=== PATIENT | female | born 1980 | race Caucasian/White ===

== ENCOUNTER 2024-11-15 10:48 | Emergency (ER) | payer BC, SELFPAY ==
--- NOTE | ~2024-11-15 | CT_ITS ---
EXAMINATION: CT knee LT wo con DATE: 11/15/2024 13:13 INDICATION: Left knee pain TECHNIQUE: Computed tomography (CT) of the left knee was performed without intravenous contrast. The dose-length product was 462.58 mGy-cm. COMPARISON: Left knee series dated 11/15/2024 FINDINGS: There is subtle cortical discontinuity along the posterior lateral tibial plateau with sclerotic margins. There is cortical discontinuity posteriorly surrounding the tibial spines, consistent with age-indeterminate fracture. No definite joint effusion. There is mild osteoarthritis of the knee. Fibula and distal femur appear to be intact. IMPRESSION: 1. Cortical discontinuity of the central and posterior lateral aspects of the tibial plateau consistent with age-indeterminate fractures. Recommend correlation with MRI to assess fracture alignment and bone marrow edema. Reviewed, dictated and finalized at location O. IMPRESSION: 1. Cortical discontinuity of the central and posterior lateral aspects of the t ibial plateau consistent with age-indeterminate fractures. Recommend correlatio n with MRI to assess fracture alignment and bone marrow edema.
--- NOTE | ~2024-11-15 | CT_ITS ---
EXAMINATION: CT hip LT wo con DATE: 11/15/2024 13:13 INDICATION: Left hip pain TECHNIQUE: Computed tomography (CT) of the left hip was performed without intravenous contrast. The dose-length product was 462.58 mGy-cm. COMPARISON: Left hip series dated 11/15/2024 FINDINGS: There is thinning of the medial wall of the acetabulum with mild acetabular protrusio. There is lucency surrounding the acetabular component of left total hip arthroplasty, consistent with loosening. No acute fracture identified. IMPRESSION: 1. Abnormal lucency surrounding the acetabular component of left total hip arthroplasty, consistent with loosening. Mild acetabula protrusio. No acute fracture identified. Reviewed, dictated and finalized at location O. IMPRESSION: 1. Abnormal lucency surrounding the acetabular component of left total hip arth roplasty, consistent with loosening. Mild acetabula protrusio. No acute fractur e identified.
--- NOTE | ~2024-11-15 | XR_ITS ---
XR knee LT 3V 11/15/2024 12:33 INDICATION: Left knee pain PROCEDURE: 4 views left knee COMPARISON: No prior studies for comparison. FINDINGS: There is a nondisplaced lateral tibial plateau fracture.. No significant joint effusion. Osteopenia. The soft tissues appear within normal limits. No foreign bodies are identified. IMPRESSION: 1: Nondisplaced lateral tibial plateau fracture. Consider correlation with CT. Reviewed, dictated and finalized at location O.
--- NOTE | ~2024-11-15 | XR_ITS ---
XR hip LT 2V w AP pelvis 11/15/2024 12:34 Indication: Left hip pain. Procedure: AP pelvis and 2 views left hip Comparison: 03/10/2010 Findings: There is a left total hip arthroplasty. There has been development of acetabular protrusio with lucency surrounding the acetabular component, suspicious for loosening. There is mild osteoarthritis of the right hip. Impression: 1: Interval development of acetabular protrusio with interval development of lucency surrounding the acetabular component, suspicious for loosening. Reviewed, dictated and finalized at location O. Impression: 1: Interval development of acetabular protrusio with interval development of alice cency surrounding the acetabular component, suspicious for loosening.
--- OUTSIDE RECORDS SUMMARY | 2024-11-15 10:51 | XMS_ITS | Encounter Summary ---
Author Organization [email or web address] Address [address] [place] [address] Care Team Providers Care Reel Hooker Name Role Phone Unavailable Primary Care Provider Unavailabl e Encounter Details Date Type Department Care Team (Late st Contact Info) Description 05/22/2007 Outpatient Historical [facility] Juni Elloitt MD NO ADDRESS ON FILE Social History Tobacco Use Types Packs/Day Years Used Date Smoking Tobacco: Never Assessed Comments Unknown Sex and Gender Information Value Date Recorded Sex Assigned at Not on file Legal Sex Female 5:30 AM P[address]ING [address] CHAUFFEUR Gender Identity Not on file Sexual Orientation Not on file documented as of this encounter Plan of Treatment Not on file documented as of this encounter Visit Diagnoses Not on filedocumented in this encounter
--- OUTSIDE RECORDS SUMMARY | 2024-11-15 10:51 | XMS_ITS | Clinical Summary ---
Author Organization [employer] Address [address] [facility] Attn: Epic Prelude ADT JARROD PARIKH ELISA [id number] Care Team Providers Care Green Prize Packer Name Role Phone Unavailable Primary Care Provider Unavailabl e Social History Tobacco Use Types Packs/Day Years Used Date Smoking Tobacco: Never Assessed Comments Unknown Sex and Gender Information Value Date Recorded Sex Assigned at Not on file Legal Sex Female 5:30 AM SVP [employer]ETING [employer] COMM[employer] Gender Identity Not on file Sexual Orientation Not on file Plan of Treatment Health Maintenance Due Date Last Done Comments DTAP/TDAP/TD VACCINES (1 - Tdap) 2000 HEPATITIS B VACCINES (1 of 3 - 19+ 3-dose series) 03/25 HPV/Cotest (21-29) 2002 HPV VACCINES (1 - 3-dose SCDM series) 2008 CERVICAL CANCER SCREENING 2011 HPV/Cotest (30-65) 2011 PAP SMEAR 2011 BREAST CANCER SCREENING 2021 INFLUENZA VACCINE (#1) 2024
--- OUTSIDE RECORDS SUMMARY | 2024-11-15 10:51 | XMS_ITS | Encounter Summary ---
Author Organization [employer] Address [address] [place] [address] Care Team Providers Care Funeral Sales Manager Name Role Phone Unavailable Primary Care Provider Unavailabl e Encounter Details Date Type Department Care Team (Late st Contact Info) Description 04/10/2007 Outpatient Historical [facility]TH[facility] Juni Elliott MD NO ADDRESS ON FILE Social History Tobacco Use Types Packs/Day Years Used Date Smoking Tobacco: Never Assessed Comments Unknown Sex and Gender Information Value Date Recorded Sex Assigned at Not on file Legal Sex Female 5:30 AM ACCOUNTS RECEIVABLE ACCOUNTANT Gender Identity Not on file Sexual Orientation Not on file documented as of this encounter Plan of Treatment Not on file documented as of this encounter Visit Diagnoses Not on filedocumented in this encounter
--- OUTSIDE RECORDS SUMMARY | 2024-11-15 10:51 | XMS_ITS | Encounter Summary ---
Author Organization [employer] Address [address] [place] [address] Care Team Providers Care Roll Contour Grinder Name Role Phone Unavailable Primary Care Provider Unavailabl e Encounter Details Date Type Department Care Team (Late st Contact Info) Description 06/09/2007 Outpatient Historical [facility]THOPED[facility] TRAUMA Juni Elliott MD NO ADDRESS ON FILE Social History Tobacco Use Types Packs/Day Years Used Date Smoking Tobacco: Never Assessed Comments Unknown Sex and Gender Information Value Date Recorded Sex Assigned at Not on file Legal Sex Female 5:30 AM BUSINESS RELATIONSHIP MANAGER Gender Identity Not on file Sexual Orientation Not on file documented as of this encounter Plan of Treatment Not on file documented as of this encounter Visit Diagnoses Not on filedocumented in this encounter
--- OUTSIDE RECORDS SUMMARY | 2024-11-15 10:51 | XMS_ITS | Clinical Summary ---
Author Organization [facility] Address [address] [place] [address] Care Team Providers Care Staple Cutter Name Role Phone No, Physician Primary Care Provider [phone] Allergies Active Allergy Reactions Criticality Noted Date Comments Cephalexin Hives Medium 02/23/2023 Medications oxyCODONE (ROXICODONE) 5 mg immediate release tabletIndication s:Pain Take 1 tablet (5 mg total) by mouth every 4 (four) hours as needed for pain for up to 15 doses 15 tablet 02/23/2023 Active lidocaine (ASPERCREME) 4 % adhesive patch,medicated Place 1 patch on the skin 2 (two) times a day 30 patch 02/23/2023 Active Social History Tobacco Use Types Packs/Day Years Used Date Smoking Tobacco: Never Assessed Personal Safety Answer Date Recorded Have you ever been in or are you currently in a harmful physical or emotional relationship or is someone making you feel afraid or unsafe? Denies 03/20/2023 Comments Unknown Sex and Gender Information Value Date Recorded Sex Assigned at Not on file Legal Sex Female 3:22 PM INVENTORY ASSOCIATE Gender Identity Not on file Sexual Orientation Not on file Obstetrics History Last Filed Vital Signs Vital Sign Reading Time Taken Comments Blood Pressure 141/90 03/20/2023 2:30 PM INVENTORY ASSOCIATE Pulse 90 03/20/2023 2:30 PM INVENTORY ASSOCIATE Temperature 36.8 C (98.3 F) 03/20/2023 12:26 PM INVENTORY ASSOCIATE Respiratory Rate 18 03/20/2023 2:30 PM INVENTORY ASSOCIATE Oxygen Saturation 99% 03/20/2023 2:30 PM INVENTORY ASSOCIATE Inhaled Oxygen Concentration - - Weight 74.8 kg (165 lb) 03/20/2023 12:26 PM INVENTORY ASSOCIATE Height 147.3 cm (4' 10) 02/23/2023 4:21 PM INVENTORY ASSOCIATE Body Mass Index 34.49 02/23/2023 4:21 PM INVENTORY ASSOCIATE Plan of Treatment Health Maintenance Due Date Last Done Comments Breast Cancer Screening-Mammogram 1981 Cervical Cancer Screening 1981 Depression Screening 1981 Hepatitis C Screening 1981 DTaP/Tdap/Td Vaccine (1 - Tdap) 1992 Varicella Vaccines (1 of 2 - 13+ 2-dose series) 1994 Hepatitis B Screening 1999 Regular Well Visit/Exam 18-64 1999 HPV Vaccines (1 - 3-dose SCD M series) 2008 Influenza Vaccine (#1) 2024 Pneumococcal vaccine <65 Aged Out No longer eligible based on patient's age to complete this topic Insurance Care Teams Staple Cutter Relationship Specialty Start Date End Date No, Physician PCP - General 02/22/23
--- OUTSIDE RECORDS SUMMARY | 2024-11-15 10:51 | XMS_ITS | Encounter Summary ---
Author Organization [employer] Address [address] [place] [address] Care Team Providers Care Carpentry Supervisor Name Role Phone Unavailable Primary Care Provider Unavailabl e Encounter Details Date Type Department Care Team (Late st Contact Info) Description 05/26/2007 Outpatient Historical [facility]THOP[facility] TRAUMA Juni Elliott MD NO ADDRESS ON FILE Social History Tobacco Use Types Packs/Day Years Used Date Smoking Tobacco: Never Assessed Comments Unknown Sex and Gender Information Value Date Recorded Sex Assigned at Not on file Legal Sex Female 5:30 AM RN PACU Gender Identity Not on file Sexual Orientation Not on file documented as of this encounter Plan of Treatment Not on file documented as of this encounter Visit Diagnoses Not on filedocumented in this encounter
--- OUTSIDE RECORDS SUMMARY | 2024-11-15 10:51 | XMS_ITS | Clinical Summary ---
Author Organization [facility] Address [address] [place] [address] Phone Care Team Providers Care Asphalt Tamper Name Role Phone Provider, None Primary Care Provider Unavailabl e Allergies No known active allergies Medications traZODone 100 MG PO TABS Take 100 mg by mouth nightly. Active predniSONE 50 MG PO TABS Take 1 Tab by mouth daily. Use as directed. 5 Tab 0 06/14/2012 Active Active Problems No known active problems Social History Tobacco Use Types Packs/Day Years Used Date Smoking Tobacco: Every Day Cigarettes 0.5 10 Smokeless Tobacco: Never Alcohol Use Standard Drinks/Week Comments No 0 (1 standard drink = 0.6 oz pur e alcohol) Comments No Sex and Gender Information Value Date Recorded Sex Assigned at Not on file Legal Sex Female 2:39 PM CDT Gender Identity Not on file Sexual Orientation Not on file Last Filed Vital Signs Vital Sign Reading Time Taken Comments Blood Pressure 129/84 06/14/2012 1:24 AM CDT Pulse 102 06/14/2012 1:24 AM CDT Temperature 36.3 C (97.4 F) 06/14/2012 1:24 AM CDT Respiratory Rate 22 06/14/2012 1:24 AM CDT Oxygen Saturation 97% 06/14/2012 1:24 AM CDT Inhaled Oxygen Concentration - - Weight 74.8 kg (165 lb) 06/14/2012 1:24 AM CDT Height 147.3 cm (4' 10) 06/14/2012 1:24 AM CDT Body Mass Index 34.49 06/14/2012 1:24 AM CDT Plan of Treatment Health Maintenance Due Date Last Done Comments Hepatitis C Virus (HCV) Screening 1981 TdaP Immunization 1981 Hepatitis B Immunization (1 of 3 - 19+ 3-dose series) 2000 Pap Smear 2002 Human Papillomavirus (HPV) Immunization (1 - 3-dose SCDM series) 2008 Cervical Cancer Screening (CCS) 2011 HPV/Cotest 2011 SARS-COV-2 Immunization ( season) 2023 Influenza Immunization (#1) 2024 Respiratory Syncytial Virus (RSV) Immunization (Adult) (1 - 1-dose 75+ series) 2056 Meningococcal Immunization (ACWY) Aged Out No longer eligible based on patient's age to complete this topic Pneumococcal Immunization Combined Aged Out No longer eligible based on patient's age to complete this topic Rotavirus Immunization Aged Out No lo nger eligible based on patient's age to complete this topic Care Teams Asphalt Tamper Relationship Specialty Start Date End Date Provider, None [place] PCP - General 06/08/12
--- OUTSIDE RECORDS SUMMARY | 2024-11-15 10:51 | XMS_ITS | Encounter Summary ---
Author Organization [employer] Address [address] [place] [address] Care Team Providers Care Land Management Forester Name Role Phone Unavailable Primary Care Provider Unavailabl e Encounter Details Date Type Department Care Team (Latest Contact Info) Description 05/19/2007 Outpatient Historical [facility] Juni Elliott MD NO ADDRESS ON FILE Unspecified Arthropathy, Pelvic Region and Thigh Social History Tobacco Use Types Packs/Day Years Used Date Smoking Tobacco: Never Assessed Comments Unknown Sex and Gender Information Value Date Recorded Sex Assigned at Not on file Legal Sex Female 5:30 AM WALL SCRAPER Gender Identity Not on file Sexual Orientation Not on file documented as of this encounter Plan of Treatment Not on file documented as of this encounter Visit Diagnoses Diagnosis Unspecified arthropathy, pelvic region and thigh documented in this encounter
[2024-11-15 11:02] VITALS: BP 159/94; PULSE 110; RESP 18; TEMP 36.2; O2SAT 100
--- NOTE | 2024-11-15 11:22 | ECG_ITS ---
Test Date: 2024-11-15 11:30:56 Measurements Intervals [place] Rate: 91 P: 57 DC: 132 QRS: 7 QRSD: 88 T: 53 QT: 378 QTc: 467 Interpretive Statements SINUS RHYTHM BASELINE ARTIFACT- I, III, AVL NORMAL ECG No previous ECG available for comparison Electronically Signed On 11-15-2024 15:08:16 CDT by Neo Garduno D.O.
--- OUTSIDE RECORDS SUMMARY | 2024-11-15 11:24 | XMS_ITS | Encounter Summary ---
Author Organization [employer] Address [address] [place] [address] Care Team Providers Care Guitar Instructor Name Role Phone Unavailable Primary Care Provider [...] on file Legal Sex Female 5:30 AM ENGINEERING CLERK Gender Identity Not on file Sexual Orientation Not on file documented as of this encounter Plan of Treatment Not on file documented as of this encounter Visit Diagnoses Diagnosis Unspecified arthropathy, pelvic region and thigh documented in this encounter
--- OUTSIDE RECORDS SUMMARY | 2024-11-15 11:24 | XMS_ITS | Clinical Summary ---
Author Organization [employer] Address [address] [facility] Attn: Epic Prelude ADT JARROD PARIKH ELISA [phone] Care Team Providers Care Panel Wirer Name Role Phone Unavailable Primary Care Provider Unavailabl e Social History Tobacco Use Types Packs/Day Years Used Date Smoking Tobacco: Never Assessed Comments Unknown Sex and Gender Information Value Date Recorded Sex Assigned at Not on file Legal Sex Female 5:30 AM CATTLE SPRAYER Gender Identity Not on file Sexual Orientation [...]
--- OUTSIDE RECORDS SUMMARY | 2024-11-15 11:24 | XMS_ITS | Encounter Summary ---
Author Organization [employer] Address [address] [place] [address] Care Team Providers Care Phone Engineer Name Role Phone Unavailable Primary Care Provider [...] on file Legal Sex Female 5:30 AM DESULFURIZER OPERATOR Gender Identity Not on file Sexual Orientation Not on file documented as of this encounter Plan of Treatment Not on file documented as of this encounter Visit Diagnoses Not on filedocumented in this encounter
--- OUTSIDE RECORDS SUMMARY | 2024-11-15 11:24 | XMS_ITS | Clinical Summary ---
Author Organization [facility] Address [address] [place] [address] Phone Care Team Providers Care Cement And Concrete Plant Worker Name Role Phone Provider, None Primary Care [...] age to complete this topic Care Teams Cement And Concrete Plant Worker Relationship Specialty Start Date End Date Provider, None [place] PCP - General 06/08/12
--- OUTSIDE RECORDS SUMMARY | 2024-11-15 11:24 | XMS_ITS | Encounter Summary ---
Author Organization [employer] Address [address] [place] [address] Care Team Providers Care Wood Finisher Name Role Phone Unavailable Primary Care Provider [...] on file Legal Sex Female 5:30 AM ROBOTICS TESTING TECHNICIAN Gender Identity Not on file Sexual Orientation Not on file documented as of this encounter Plan of Treatment Not on file documented as of this encounter Visit Diagnoses Not on filedocumented in this encounter
--- OUTSIDE RECORDS SUMMARY | 2024-11-15 11:24 | XMS_ITS | Encounter Summary ---
Author Organization [employer] Address [address] [place] [address] Care Team Providers Care Rail Operator Name Role Phone Unavailable Primary Care Provider Unavailabl e Encounter Details Date Type Department Care Team (Late st Contact Info) Description 05/22/2007 Outpatient Historical HIS ORTHOPEDIC TRAUMA Juni Elliott MD NO ADDRESS ON FILE Social History Tobacco Use Types Packs/Day Years Used Date Smoking Tobacco: Never Assessed Comments Unknown Sex and Gender Information Value Date Recorded Sex Assigned at Not on file Legal Sex Female 5:30 AM SENIOR CIVIL ENGINEER Gender Identity Not on file Sexual Orientation Not on file documented as of this encounter Plan of Treatment Not on file documented as of this encounter Visit Diagnoses Not on filedocumented in this encounter
--- OUTSIDE RECORDS SUMMARY | 2024-11-15 11:24 | XMS_ITS | Encounter Summary ---
Author Organization [employer] Address [address] [place] [address] Care Team Providers Care Vp Of Technology Name Role Phone Unavailable Primary Care Provider [...] on file Legal Sex Female 5:30 AM FINANCIAL UNDERWRITER Gender Identity Not on file Sexual Orientation Not on file documented as of this encounter Plan of Treatment Not on file documented as of this encounter Visit Diagnoses Not on filedocumented in this encounter
[2024-11-15 11:47] LABS: Add Urine Microscopic? YES; Appearance Urine Clear (Clear); Glucose Urine UA 3+ mg/dL (Negative); Leukocyte Esterase Ur Negative LEU/UL (Negative); Nitrate Urine Negative (Negative); Non Pathogenic Casts 0-2; Specific Grav Ur 1.017 (1.001-1.035)
[2024-11-15 11:56] LABS: Hematocrit 39.7 % (37.0-47.0); Hemoglobin 13.0 g/dL (12.0-15.0); Immature Granulocyte Percent A 0.4 % (0-0.5); Lymphocytes Absolute Auto 1.53 K/mm3 (0.9-3.2); Mean Corpuscular HGB Conc 32.7 g/dl (32-36); Mean Corpuscular Hemoglobin 26.7 pg (26-34); Mean Corpuscular Volume 81.5 fl (80-100); Nucleated Red Blood Cells Absolute Auto 0.000 K/mm3 (0.0-0.012); Nucleated Red Blood Cells Perc 0.0 % (0.0-0.2); Platelet Count Result 282 k/mm3 (150-375); Red Blood Count 4.87 M/mm3 (4.2-5.4); White Blood Count 7.7 K/mm3 (4.5-10.0)
--- NOTE | 2024-11-15 12:15 | PC.NURSE ---
Unable to obtain IV access at this time, EDP aware
[2024-11-15] MEDS: SODIUM CHLORIDE 0.9% IV 1,000 ML 999 ML IV CONT ×2 (12:47)
[2024-11-15 12:51] VITALS: BP 172/101; PULSE 92; RESP 16; O2SAT 100
[2024-11-15 13:22] LABS: Alanine Aminotransferase 24 U/L (6-35); Albumin Level 4.2 g/dL (3.5-5.1); Alkaline Phosphatase 95 U/L (38-126); Anion Gap 7 mmol/L (4-12); Aspartate Amino Transferase 23 U/L (14-36); Bilirubin,Total 0.3 mg/dL (0.2-1.3); Blood Urea Nitrogen 7 mg/dL (7-17); Calcium 9.6 mg/dL (8.4-10.2); Carbon Dioxide 24 mmol/L (22-30); Chloride 104 mmol/L (98-107); Estimated Glomerular Filt Rate > 60; Glucose 318 mg/dL (65-110); Magnesium 1.8 mg/dL (1.6-2.3); Potassium 4.1 mmol/L (3.4-5.0); Sodium 135 mmol/L (137-145); Total Protein 7.3 g/dL (6.3-8.2)
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
--- NOTE | 2024-11-15 14:38 | PC.NURSE ---
EDP aware of pt blood glucose recheck
== END 2024-11-15 14:38 | disposition home or self-care (01) ==
PROVIDERS: Emergency Provider Emergency Medicine
DX: T84.091A Other mechanical complication of internal left hip prosthesis, initial encounter (principal); S82.142D Displaced bicondylar fracture of left tibia, subsequent encounter for closed fracture with routine healing; E11.65 Type 2 diabetes mellitus with hyperglycemia; Z79.4 Long term (current) use of insulin; X58.XXXD Exposure to other specified factors, subsequent encounter
CPT/HCPCS: 36415; 73502; 73562; 73700; 80053; 81001; 82948; 83735; 85025; 93005; 96360; 99284; J7030

== ENCOUNTER 2025-01-04 20:27 | Inpatient (IN) | payer BC, SELFPAY ==
--- NOTE | ~2025-01-04 | XR_ITS ---
XR knee LT 3V INDICATION: fall . COMPARISON: None. FINDINGS: Frontal, lateral and oblique views of the left knee demonstrate no acute fracture or dislocation. There is no joint effusion. IMPRESSION: Radiographic examination of the left knee demonstrates no acute fracture or dislocation. Reviewed, dictated and finalized at location S. IMPRESSION: Radiographic examination of the left knee demonstrates no acute fracture or dis location.
--- NOTE | ~2025-01-04 | CT_ITS ---
EXAMINATION: CT brain wo con DATE: 01/05/2025 06:01 INDICATION: Ataxia. TECHNIQUE: Computed tomography (CT) of the head was performed without intravenous contrast. The mA was adjusted according to patient size. Iterative reconstruction technique was employed. The dose-length product was 681.00 mGy-cm. COMPARISON: None FINDINGS: There are old infarcts in the right frontal and parietal lobes, right basal ganglia, and anterior limb right internal capsule. There are old infarcts in the left frontal lobe periventricular white matter. There is no intracranial hemorrhage, acute infarction, or abnormal intracranial mass lesion. The ventricles are normal in size. The orbits are normal. There is mild mucosal thickening in the paranasal sinuses. The mastoid air cells are normal. IMPRESSION: 1. 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 Reviewed, dictated and finalized at location E. IMPRESSION: 1. Old infarcts involving the right frontal and parietal lobes, right basal don glia, anterior limb right internal capsule, and left frontal lobe.
--- NOTE | ~2025-01-04 | XR_ITS ---
XR hip LT min 2V HISTORY: fall . COMPARISON: None FINDINGS: Two views of the left hip are provided for interpretation. There is no evidence of fracture or dislocation. Hip arthroplasty is well seated with no loosening evident. IMPRESSION: Radiographic examination of the left hip demonstrates no acute fracture or dislocation. Reviewed, dictated and finalized at location S. IMPRESSION: Radiographic examination of the left hip demonstrates no acute fracture or disl ocation.
--- NOTE | ~2025-01-04 | XR_ITS ---
EXAMINATION: XR hip LT min 3V w AP pelvis, 01/06/2025 12:57 CDT HISTORY: left hip pain, hx of hip replacement, recent fall COMPARISON: No comparisons available. Findings: No acute fracture or malalignment. Left arthroplasty intact Soft tissues unremarkable. Impression: No acute fracture or malalignment. Reviewed, dictated and finalized at location P. Impression: No acute fracture or malalignment.
--- NOTE | ~2025-01-04 | XR_ITS ---
Examination: XR chest 1V Clinical History: ataxia, Failure to thrive Comparison: None Technique: Portable AP Findings: Heart size normal. Lungs clear. No acute bony abnormality. IMPRESSION: 1. No acute cardiopulmonary findings given portable technique. Reviewed, dictated and finalized at location R.
--- NOTE | ~2025-01-04 | XR_ITS ---
EXAMINATION: XR knee LT 3V, 01/06/2025 12:57 CDT HISTORY: lt knee pain, pt reports hx of tibial plateau fx, recent fal COMPARISON: No comparisons available. Findings: Benign-appearing left lateral tibial plateau fracture, no acute fracture identified Moderate tricompartmental degenerative changes, small effusion. Soft tissues unremarkable. Impression: No acute fracture or malalignment. Reviewed, dictated and finalized at location P. Impression: No acute fracture or malalignment.
--- OUTSIDE RECORDS SUMMARY | 2025-01-04 20:30 | XMS_ITS | Encounter Summary ---
Author Organization [facility] Address 

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
--- OUTSIDE RECORDS SUMMARY | 2025-01-04 20:30 | XMS_ITS | Encounter Summary ---
Author Organization [employer] Address 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
--- OUTSIDE RECORDS SUMMARY | 2025-01-04 20:30 | XMS_ITS | Encounter Summary ---
Author Organization [employer] Address 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
--- OUTSIDE RECORDS SUMMARY | 2025-01-04 20:30 | XMS_ITS | Clinical Summary ---
Author Organization [facility] Address [address] [place] [address] Phone Care Team Providers Care Washery Boss Name Role Phone Provider, None Primary Care [...] Cervical Cancer Screening (CCS) 2011 HPV/Cotest 2011 Influenza Immunization (#1) 2024 SARS-COV-2 Immunization ( season) 2024 Respiratory Syncytial Virus (RSV) Immunization (Adult) (1 - 1-dose 75+ series) 2056 Meningococcal Immunization (ACWY) Aged Out No longer eligible based on patient's age to complete this topic Pneumococcal Immunization Combined Aged Out No longer eligible based on patient's age to complete this topic Rotavirus Immunization Aged Out No lo nger eligible based on patient's age to complete this topic Care Teams Washery Boss Relationship Specialty Start Date End Date Provider, None [place] PCP - General 06/08/12
--- OUTSIDE RECORDS SUMMARY | 2025-01-04 20:30 | XMS_ITS | Encounter Summary ---
Author Organization [employer] Address 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
--- OUTSIDE RECORDS SUMMARY | 2025-01-04 20:30 | XMS_ITS | Encounter Summary ---
Author Organization [employer] Address 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
--- OUTSIDE RECORDS SUMMARY | 2025-01-04 20:30 | XMS_ITS | Clinical Summary ---
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 Role Phone No, Physician Primary Care Provider [phone] Allergies Active Allergy Reactions Criticality Noted Date Comments Cephalexin Hives Medium 02/23/2023 Medications buPROPion XL (WELLBUTRIN XL) 150 mg 24 hr tablet Take 1 tablet (150 mg total) by mouth daily Active cloNIDine (CATAPRES) 0.1 mg tablet Take 1 tablet (0.1 mg total) by mouth 3 (three) times a day Active insulin lispro (HumaLOG, ADMELOG) 100 unit/mL pen for injection Inject under the skin Sliding scale TID Active buprenorphine-naloxo ne (SUBOXONE) 8-[address] 1 Film under the tongue 3 (three) times a day Active gabapentin (NEURONTIN) 800 mg tablet Take 1 tablet (800 mg total) by mouth 3 (three) times a day Active cyclobenzaprine (FLEXERIL) 10 mg tablet Take 1 tablet (10 mg total) by mouth 2 (two) times a day as needed for muscle spasms 60 tablet 5 Active aspirin 81 mg enteric coated tabletIndications:Ce rebral Thromboembolism Prevention Take 1 tablet (81 mg total) by mouth daily 30 tablet 5 12/02/19 26 Active atorvastatin (LIPITOR) 80 mg tablet Take 1 tablet (80 mg total) by mouth daily 30 tablet 5 12/02/19 26 Active clopidogreL (PLAVIX) 75 mg tablet Take 1 tablet (75 mg total) by mouth daily for 16 doses 16 tablet 5 Active insulin glargine 100 unit/mL (3 mL) pen for injection Inject 20 Units under the skin 2 (two) times a day 12 mL 5 Active Active Problems Problem Noted Date Diagnosed Date Cerebrovascular accident (CVA) 11/25/2024 Methamphetamine abuse 11/24/2024 Chest pain, unspecified type 11/23/2024 Substance abuse 11/23/2024 Hypertensive urgency 11/23/2024 Hyperglycemia 11/23/2024 Encounters Date Type Department Care Team Description 11/30/2024 6:15 PM CDT - 11/30/2024 11:59 PM CDT Hospital Encounter [facility] BILL[facility] Sarah Dawson MD Discharge Disposition: Discharge to home or self care 11/30/2024 12:04 PM CDT - 11/30/2024 11:59 PM CDT Hospital Encounter [facility] Cardiology [address] [place] [address] Cerebrovascular accident (CVA), unspecified mechanism (HCC) [I63.9] Discharge Disposition: Discharge to home or self care 11/26/2024 Documentation [facility] Warm Hand Off Program [address] [place], [place] [phone] Cristiano Porras 11/23/2024 4:39 PM CDT - 11/30/2024 6:13 PM CDT Hospital Encounter [facility] Medical Care [address] [place] [address] Speedy Felix MD Huynh, Kiet T., MD Nikolic, Jelena, MD Cerebrovascular accident (CVA), unspecified mechanism (HCC) [I63.9] (Primary Dx); Chest pain, unspecified type; Uncontrolled hypertension; Methamphetamine abuse Discharge Disposition: Discharge to SNF from Last 3 Months Medical History Medical History Date Comments Arthritis Diabetes mellitus History of transfusion Hypertension Stroke (HCC) Social History Tobacco Use Types Packs/Day Years Used Date Smoking Tobacco: Every Day Cigarettes Tobacco Cessation:Ready to Q uit: Not Asked; Counseling Given: Not Answered Social Connection and Isolation Panel Answer Date Recorded In a typical week, how many times do you talk on the phone with family, friends, or neighbors? Three times a week 11/24/2024 How often do you get togethe r with friends or relatives? Three times a week 11/24/2024 How often do you attend chur ch or denominational services? Never 11/24/2024 Do you belong to any clubs o r organizations such as taoist groups, unions, fraternal or athletic groups, or school groups? No 11/24/2024 How often do you attend meet ings of the clubs or organizations you belong to? Never 11/24/2024 Marital Status Never 11/24/2024 Overall Financial Resource Strain (CARDIA) Answe r Date Recorded How hard is it for you to pa y for the very basics like food, housing, medical care, and heating? Somewhat hard 11/24/2024 Hunger Vital Sign Answer Date Recorded Within the past 12 months, y ou worried that your food would run out before you got the money to buy more. Never true 11/25/19 25 Within the past 12 months, t he food you bought just didn't last and you didn't have money to get more. Never true 11/24/2024 PRAPARE - Transportation Answer Date Re corded In the past 12 months, has l ack of transportation kept you from medical appointments or from getting medications? Yes 04/2024 In the past 12 months, has l ack of transportation kept you from meetings, work, or from getting things needed for daily living? Yes 11/24/2024 Housing Stability Vital Sign Answer Aravind e Recorded In the last 12 months, was t here a time when you were not able to pay the mortgage or rent on time? Yes 11/24/2024 In the past 12 months, how m any times have you moved where you were living? 2 11/24/2024 At any time in the past 12 m [facility], were you homeless or living in a [place] health care facility (including now)? Yes 11/24/2024 [facility] Utilities Answer Date Recorded In the past 12 months has th e electric, gas, oil, or water company threatened to shut off services in your home? No 11/24/2024 Personal Safety Answer Date Recorded Have you ever been in or are you currently in a harmful physical or emotional relationship or is someone making you feel afraid or unsafe? Denies 11/23/2024 Comments Unknown Sex and Gender Information Value Date Recorded Sex Assigned at Not on file Legal Sex Female 3:22 PM [employer]AV[employer] CLE[employer]ER Gender Identity Not on file Sexual Orientation Not on file Obstetrics History Last Filed Vital Signs Vital Sign Reading Time Taken Comments Blood Pressure 132/70 11/30/2024 2:57 PM CDT Pulse 72 11/30/2024 2:57 PM CDT Temperature 36.4 C (97.6 F) 11/30/2024 2:57 PM CDT Respiratory Rate 12 11/30/2024 2:57 PM CDT Oxygen Saturation 100% 11/30/2024 2:57 PM CDT Inhaled Oxygen Concentration - - Weight 77 kg (169 lb 12.1 oz) 11/25/2024 1:19 PM CDT Height 147.3 cm (4' 10) 11/25/2024 1:19 PM CDT Body Mass Index 35.48 11/25/2024 1:19 PM CDT Plan of Treatment Health Maintenance Due Date Last Done Comments Breast Cancer Screening-Mammogram 1980 Cervical Cancer Screening 1980 Depression Screening 1980 Hepatitis C Screening 1981 DTaP/Tdap/Td Vaccine (1 - Tdap) 1992 Varicella Vaccines (1 of 2 - 13+ 2-dose series) 1994 Hepatitis B Screening 1999 Regular Well Visit/Exam 18-64 1999 Pneumococcal vaccine <65 (1 of 2 - PCV) 2000 HPV Vaccines (1 - 3-dose SCDM series) 2008 Influenza Vaccine (#1) 2024 Procedures Procedure Name Priority Date/Time Associated Diagnosis Comments POCT GLUCOSE DEVICE Routine 11/30/2024 4 :26 PM CDT MCT - MOBILE CARDIAC TELEMETRY EVENT MONITOR Routine 11/30/2024 12:04 PM CDT Cerebrovascular accident (CVA), unspecified mechanism (HCC) [I63.9] POCT GLUCOSE DEVICE Routine 11/30/2024 1 1:42 AM CDT POCT GLUCOSE DEVICE Routine 11/30/2024 7 :46 AM CDT EGFR Routine 11/30/2024 4:55 AM CDT DIFFERENTIAL AUTO Routine 11/30/2024 4:5 5 AM CDT COMPREHENSIVE METABOLIC PANEL Routine 11/30/2024 4:55 AM CDT CBC WITH AUTO DIFFERENTIAL Routine 11/30/2024 4:55 AM CDT POCT GLUCOSE DEVICE Routine 11/30/2024 2 :25 AM CDT POCT GLUCOSE DEVICE Routine 11/29/2024 8 :47 PM CDT POCT GLUCOSE DEVICE Routine 11/29/2024 4 :42 PM CDT POCT GLUCOSE DEVICE Routine 11/29/2024 1 1:41 AM CDT POCT GLUCOSE DEVICE Routine 11/29/2024 8 :00 AM CDT EGFR Routine 11/29/2024 5:53 AM CDT DIFFERENTIAL AUTO Routine 11/29/2024 5:5 3 AM CDT COMPREHENSIVE METABOLIC PANEL Routine 11/29/2024 5:53 AM CDT CBC WITH AUTO DIFFERENTIAL Routine 11/29/2024 5:53 AM CDT POCT GLUCOSE DEVICE Routine 11/29/2024 2 :27 AM CDT POCT GLUCOSE DEVICE Routine 11/28/2024 4 :36 PM CDT POCT GLUCOSE DEVICE Routine 11/28/2024 1 1:46 AM CDT EGFR Routine 11/28/2024 9:11 AM CDT DIFFERENTIAL AUTO Routine 11/28/2024 9:1 1 AM CDT COMPREHENSIVE METABOLIC PANEL Routine 11/28/2024 9:11 AM CDT CBC WITH AUTO DIFFERENTIAL Routine 11/28/2024 9:11 AM CDT POCT GLUCOSE DEVICE Routine 11/28/2024 7 :42 AM CDT POCT GLUCOSE DEVICE Routine 11/28/2024 2 :25 AM CDT POCT GLUCOSE DEVICE Routine 11/27/2024 1 0:44 PM CDT POCT GLUCOSE DEVICE Routine 11/27/2024 4 :31 PM CDT POCT GLUCOSE DEVICE Routine 11/27/2024 1 1:11 AM CDT CALCIUM,IONIZED, WHOLE BLOOD Routine 11/27/2024 10:00 AM CDT CBC WITHOUT DIFFERENTIAL Routine 11/27/2024 8:49 AM CDT POCT GLUCOSE DEVICE Routine 11/27/2024 7 :46 AM CDT EGFR Routine 11/27/2024 5:53 AM CDT COMPREHENSIVE METABOLIC PANEL Routine 11/27/2024 5:53 AM CDT POCT GLUCOSE DEVICE Routine 11/27/2024 2 :13 AM CDT POCT GLUCOSE DEVICE Routine 11/26/2024 9 :00 PM CDT POCT GLUCOSE DEVICE Routine 11/26/2024 4 :32 PM CDT TRANSESOPHAGEAL ECHO (PATRICK) W DOPPLER/CF WO CONTRAST Routine 11/26/2024 2:22 PM CDT POCT GLUCOSE DEVICE Routine 11/26/2024 1 1:37 AM CDT POCT GLUCOSE DEVICE Routine 11/26/2024 8 :03 AM CDT EGFR Routine 11/26/2024 5:04 AM CDT DIFFERENTIAL AUTO Routine 11/26/2024 5:0 4 AM CDT LIPID PANEL Routine 11/26/2024 5:04 AM CDT COMPREHENSIVE METABOLIC PANEL Routine 11/26/2024 5:04 AM CDT CBC WITH AUTO DIFFERENTIAL Routine 11/26/2024 5:04 AM CDT POCT GLUCOSE DEVICE Routine 11/26/2024 2 :11 AM CDT POCT GLUCOSE DEVICE Routine 11/25/2024 8 :01 PM CDT CTA HEAD NECK W WO CONTRAST IP Routine 11/25/2024 6:19 PM CDT POCT GLUCOSE DEVICE Routine 11/25/2024 4 :[address] HEAD WO CONTRAST IP Routine 11/25/2024 4 :00 PM CDT MRI BRAIN WO CONTRAST IP Routine 11/25/2024 3:37 PM CDT US CAROTIDS DUPLEX BILATERAL IP Routine 11/25/2024 2:48 PM CDT POCT GLUCOSE DEVICE Routine 11/25/2024 1 1:56 AM CDT EGFR Routine 11/25/2024 9:28 AM CDT COMPREHENSIVE METABOLIC PANEL Routine 11/25/2024 9:28 AM CDT POCT GLUCOSE DEVICE Routine 11/25/2024 7 :50 AM CDT DIFFERENTIAL AUTO Routine 11/25/2024 3:5 2 AM CDT CBC WITH AUTO DIFFERENTIAL Routine 11/25/2024 3:52 AM CDT POCT GLUCOSE DEVICE Routine 11/25/2024 2 :35 AM CDT POCT GLUCOSE DEVICE Routine 11/24/2024 8 :29 PM CDT POCT GLUCOSE DEVICE Routine 11/24/2024 5 :07 PM CDT POCT GLUCOSE DEVICE Routine 11/24/2024 1 2:17 PM CDT TRANSTHORACIC ECHO (TTE) LIMITED/FOLLOW UP WO DOPPLER/CF WO CONTRAST Routine 11/24/2024 8:00 AM CDT POCT GLUCOSE DEVICE Routine 11/24/2024 7 :53 AM CDT POCT GLUCOSE DEVICE Routine 11/24/2024 2 :36 AM CDT EGFR Routine 11/24/2024 12:41 AM CDT DIFFERENTIAL AUTO Routine 11/24/2024 12: 41 AM CDT COMPREHENSIVE METABOLIC PANEL Routine 11/24/2024 12:41 AM CDT CBC WITH AUTO DIFFERENTIAL Routine 11/24/2024 12:41 AM CDT TROPONIN T HIGH-SENSITIVITY 6-HOUR Timed 11/24/2024 12:41 AM CDT XR TIBIA FIBULA LEFT 2 VIEWS IP Routine 11/23/2024 11:51 PM CDT XR HIP LEFT W PELVIS 2 OR 3 VIEWS IP Routine 11/23/2024 11:50 PM CDT XR KNEE LEFT 1 OR 2 VIEWS IP Routine 11/23/2024 11:50 PM CDT TROPONIN T HIGH-SENSITIVITY 4-HR Timed 11/23/2024 10:01 PM CDT PA CRITICAL CARE ILL/INJURED PATIENT INIT 30-74 MIN Routine 11/23/2024 9:16 PM CDT TROPONIN T HIGH-SENSITIVITY 2-HOUR Timed 11/23/2024 8:49 PM CDT POCT GLUCOSE DEVICE Routine 11/23/2024 8 :[address] CHEST PE W CONTRAST ED 7:57 PM CDT POCT GLUCOSE DEVICE Routine 11/23/2024 7 :09 PM CDT XR CHEST 1 VIEW ED 11/23/2024 6:12 PM CDT ECG 12-LEAD STAT 11/23/2024 6:09 PM CDT HEMOGLOBIN A1C Add-On 11/23/2024 6:03 PM CDT EGFR STAT 11/23/2024 6:03 PM CDT URINALYSIS, MICROSCOPIC ONLY STAT 11/23/2024 6:03 PM CDT DIFFERENTIAL AUTO STAT 11/23/2024 6:0 3 PM CDT SEPSIS LACTATE WITH REFLEX STAT 11/23/2024 6:03 PM CDT D-DIMER, QUANTITATIVE STAT 11/23/2024 6:03 PM CDT MAGNESIUM Add-On 11/23/2024 6:03 PM CDT TROPONIN T HIGH-SENSITIVITY SERIES (BASELINE, 2HR, 4HR, 6HR) STAT 11/23/2024 6:03 PM CDT PRO B-TYPE NATRIURETIC PEPTIDE STAT 11/23/2024 6:03 PM CDT COMPREHENSIVE METABOLIC PANEL STAT 11/23/2024 6:03 PM CDT CBC WITH AUTO DIFFERENTIAL STAT 11/23/2024 6:03 PM CDT URINALYSIS AND REFLEX TO MICROSCOPIC AND CULTURE STAT 11/23/2024 6:03 PM CDT ETHANOL STAT 11/23/2024 5:49 PM CDT DRUGS OF ABUSE SCREEN, URINE WITHOUT CONFIRMATION STAT 11/23/2024 5:49 PM CDT from Last 3 Months Results * (ABNORMAL) POCT glucose (11/30/2024 4:26 PM CDT) Glucose, POC 239(H) 70 - 199 mg/dL Blood 11/30/2024 4:26 PM CDT 11/30/2024 4:26 PM CDT us Sarah Dawson MD LAB POCT ORDERABLES - DEVICE F inal Result [facility] [address] Department of Laboratories [place], [place] [id number] * MCT Mobile Cardiac Telemetry Event Monitor (11/30/2024 12:04 PM CDT) Anatomical Region Laterality Modality Electrocardiogra phy 11/30/2024 12:0 7 PM CDT Narrative 12/09/2024 10:41 AM CDT [address] [address] EVENT MONITOR Patient Name: MIRANDA JOHNSON : 1980 Study Date: 11/30/2024 12:07:23 PM Sex: F Tech: Ref Provider: SARAH DAWSON Height(Cm): BSA: Weight(Kg): Order Provider: SARAH DAWSON PROCEDURES: Event Report: Event Monitor Report. INDICATIONS: I63.9 Cerebral infarction, unspecified. FINDINGS: CONCLUSIONS: 1. Predominant rhythm is normal sinus rhythm with a minimum heart rate of 71 beats per minute in sinus and a maximum heart rate 109 beats per minute also likely in sinus. Rhythm strip during the fastest heart rate was of poor quality. Average heart rate of 80 beats per minute. Heart rate was controlled 100% of the time. Total monitoring time of 7 hours 54 minutes. 2. No prolonged pauses. 3. Occasional PACs with 847 PACs corresponding to 2% of total beats. 4. Rare PVCs with only 1 PVC amounting to less than 1% of total beats. 5. The patient recorded no symptoms during the study. 6. There was only 1 auto triggered event and it was in sinus rhythm at 85 beats per minute with no significant findings. Electronically Signed By: Dr Ashok Baker 12/09/2024 9:27:00 AM CDT Procedure Note Ashok Baker MD - 12/09/[address] [place] [address] EVENT MONITOR Patient Name: MIRANDA JOHNSON : 1980 Study Date: 11/30/2024 12:07:23 PM Sex: F Tech: Ref Provider: SARAH DAWSON Height(Cm): BSA: Weight(Kg): Order Provider: SARAH DAWSON PROCEDURES: Event Report: Event Monitor Report. INDICATIONS: I63.9 Cerebral infarction, unspecified. FINDINGS: CONCLUSIONS: 1. Predominant rhythm is normal sinus rhythm with a minimum heart rate of71 beats per minute in sinus and a maximum heart rate 109 beats per minute also likelyin sinus. Rhythm strip during the fastest heart rate was of poor quality. Average heart rate of 80 beats per minute. Heart rate was controlled 100% of the time. Total monitoring time of 7 hours 54 minutes. 2. No prolonged pauses. 3. Occasional PACs with 847 PACs corresponding to 2% of total beats. 4. Rare PVCs with only 1 PVC amounting to less than 1% of total beats. 5. The patient recorded no symptoms during the study. 6. There was only 1 auto triggered event and it was in sinus rhythm at 85beats per minute with no significant findings. Electronically Signed By: Dr Ashok Baker 12/09/2024 9:27:00 AM CDT Sarah Dawson MD CV CARDIAC SERVICES PROCEDURES Final Result * POCT glucose (11/30/2024 11:42 AM CDT) Glucose, POC 195 70 - 199 mg/dL Blood 11/30/2024 11:4 2 AM CDT 11/30/2024 11:42 AM CDT Sarah Dawson MD LAB POCT ORDERABLES - DEVICE F inal Result [facility] [place]) 1 [facility] Department of [employer] [place] [address] * (ABNORMAL) POCT glucose (11/30/2024 7:46 AM CDT) Glucose, POC 237(H) 70 - 199 mg/dL Blood 11/30/2024 7:46 AM CDT 11/30/2024 7:46 AM CDT us Sarah Dawson MD LAB POCT ORDERABLES - DEVICE F inal Result Performing Organization Address City/[facility] Co de Phone Number [facility] ([place]) 1 [facility] Department of [employer] [place] [place] [address] * eGFR (11/30/2024 4:55 AM CDT) eGFR >90 >=60 mL/min/1. 73 m2 Comment: Interpretive Data Reference Interval Normal >/= 90 mL/min/1.73m2 Mildly decreased* 60 - 89 mL/min/1.73m2 Mildly to moderately decreased 45 - 59 mL/min/1.73m2 Moderately to severely decreased 30 - 44 mL/min/1.73m2 Severely decreased 15 - 29 mL/min/1.73m2 Kidney Failure < 15 mL/min/1.73m2 *Relative to young adult level Estimated glomerular filtration rate is determined by the 2020 CKD-EPI equation recommended by the National Kidney Foundation (A Unifying Approach to GFR Estimation: Recommendations of the NKF-ASK Task Force on Reassessing the Inclusion of Race in Diagnosing Kidney Disease, JASN 2020). The CKD-EPI equation should not be used for patients with unstable renal function and has not been validated in children and those over 70. Current interpretive data was last reviewed 2021. Blood 11/30/2024 4:55 AM CDT 11/30/2024 6:02 AM CDT us Rajesh Roman MD LAB BLOOD ORDERABLES Final Resu lt Performing Organization Address City/[facility]/ZIP Co de Phone Number [facility] ([place]) 1 [facility] Department of [employer] [place] [address] * Differential, auto (11/30/2024 4:55 AM CDT) Neutrophil abs 3.70 1.50 - 6.50 K/cumm Imm gran abs 0.02 0.00 - 0.10 K/cumm [facility] ([place]) Lymphocyte abs 1.42 0.80 - 3.30 K/cumm [facility] ([place]) Monocyte abs 0.37 0.20 - 0.80 K/cumm [facility] ([place]) Eosinophil abs 0.17 0.00 - 0.50 K/cumm [facility] ([place]) Basophil abs 0.01 0.00 - 0.10 K/cumm [facility] ([place]) Neutrophil pct 64.9 % [facility] ([place]) Comment: Interpretive Data Percent cell count reference ranges are not reported, since discordance with absolute values may lead to misinterpretation of CBC data. Current Interpretive Data was last revised on 2017. Imm gran pct 0.4 % [facility] ([place]) Comment: Interpretive Data Percent cell count reference ranges are not reported, since discordance with absolute values may lead to misinterpretation of CBC data. Current Interpretive Data was last revised on 2017. Lymphocyte pct 25.0 % [facility] ([place]) Comment: Interpretive Data Percent cell count reference ranges are not reported, since discordance with absolute values may lead to misinterpretation of CBC data. Current Interpretive Data was last revised on 2017. Monocyte pct 6.5 % [facility] ([place]) Comment: Interpretive Data Percent cell count reference ranges are not reported, since discordance with absolute values may lead to misinterpretation of CBC data. Current Interpretive Data was last revised on 2017. Eosinophil pct 3.0 % [facility] ([place]) Comment: Interpretive Data Percent cell count reference ranges are not reported, since discordance with absolute values may lead to misinterpretation of CBC data. Current Interpretive Data was last revised on 2017. Basophil pct 0.2 % [facility] ([place]) Comment: Interpretive Data Percent cell count reference ranges are not reported, since discordance with absolute values may lead to misinterpretation of CBC data. Current Interpretive Data was last revised on 2017. Blood 11/30/2024 4:55 AM CDT 11/30/2024 6:02 AM CDT us Rajesh Roman MD LAB BLOOD ORDERABLES Final Resu lt [facility] ([place]) 1 [facility] Department [place] [address] * (ABNORMAL) CBC with auto differential (11/30/2024 4:55 AM CDT) WBC 5.69 3.80 - 9.90 K/cumm Hgb 12.3 11.9 - 15.5 g/dL [facility] ([place]) Hct 37.8 35.6 - 45.5 % [facility] ([place]) Plt 207 150 - 400 K/cumm [facility] ([place]) MPV 11.0 9.1 - 12.3 fL [facility] ([place]) RBC 4.59 3.90 - 5.20 M/cumm [facility] ([place]) MCV 82.4 81.3 - 96.4 fL [facility] ([place]) MCH 26.8(L) 27.1 - 33.3 pg [facility] ([place]) MCHC 32.5 32.3 - 35.7 g/dL [facility] ([place]) RDW CV 13.2 11.1 - 14.9 % [facility] ([place]) RDW SD 39.4 35.7 - 48.1 fL [facility] ([place]) NRBC abs 0.00 0.00 - 0.01 K/cumm [facility] ([place]) Blood 11/30/2024 4:55 AM CDT 11/30/2024 6:02 AM CDT us Rajesh Roman MD LAB BLOOD ORDERABLES Final Resu lt [facility] ([place]) 1 [facility] Department [place] [address] * (ABNORMAL) Comprehensive metabolic panel (11/30/2024 4:55 AM CDT) Pathologist [facility] Sodium 138 135 - 145 mmol/L [facility] ([place]) Potassium, pl 4.5 3.3 - 4.9 mmol/L [facility] ([place]) Chloride 105 97 - 110 mmol/L [facility] ([place]) CO2 23 22 - 32 mmol/L [facility] ([place]) Anion gap 10 2 - 15 mmol/L [facility] ([place]) BUN 15 6 - 25 mg/dL [facility] ([place]) Creatinine 0.78 0.60 - 1.10 mg/dL [facility] ([place]) Glucose 237(H) 70 - 199 mg/dL [facility] ([place]) Comment: Interpretive Data Fasting glucose >/= 126 mg/dl is diagnostic for diabetes. Fasting is defined as no caloric intake for at least 8 hours. Fasting glucose between 100 mg/dl to 125 mg/dl is diagnostic of prediabetes. In a patient with classic symptoms of hyperglycemia or hyperglycemic crisis, a random glucose >/= 200 mg/dl is diagnostic for diabetes. In the absence of unequivocal hyperglycemia, results should be confirmed by repeat testing. The classification and Diagnosis of Diabetes Diabetes Care 2021; 46: S19-S40. Current interpretive data was last revised 2022. Calcium 9.4 8.5 - 10.3 mg/dL [facility] ([place]) Bilirubin, total 0.2 0.1 - 1.2 mg/dL [facility] ([place]) Protein, pl 6.3(L) 6.5 - 8.5 g/dL [facility] ([place]) Albumin 3.6 3.5 - 5.0 g/dL [facility] ([place]) Alk phos 167(H) 40 - 130 Units/L [facility] ([place]) ALT 50(H) 7 - 45 Units/L [facility] ([place]) AST 54(H) 10 - 45 Units/L [facility] ([place]) Blood 11/30/2024 4:55 AM CDT 11/30/2024 6:02 AM CDT us Rajesh Roman MD LAB BLOOD ORDERABLES Final Resu lt [facility] ([place]) 1 [facility] Department [place] [address] * (ABNORMAL) POCT glucose (11/30/2024 2:25 AM CDT) Glucose, POC 222(H) 70 - 199 mg/dL Blood 11/30/2024 2:25 AM CDT 11/30/2024 2:25 AM CDT us Sarah Dawson MD LAB POCT ORDERABLES - DEVICE F inal Result Performing Organization Address [facility] Co de Phone Number [facility] 1 [facility] [employer] [place] [place] [address] * POCT glucose (11/29/2024 8:47 PM CDT) Glucose, POC 176 70 - 199 mg/dL Blood 11/29/2024 8:47 PM CDT 11/29/2024 8:47 PM CDT us Sarah Dawson MD LAB POCT ORDERABLES - DEVICE F inal Result Performing Organization Address [facility] de Phone Number [facility] ([place]) 1 [facility] [employer] [place] [place] [address] * POCT glucose (11/29/2024 4:42 PM CDT) Glucose, POC 144 70 - 199 mg/dL Blood 11/29/2024 4:42 PM CDT 11/29/2024 4:42 PM CDT us Sarah Dawson MD LAB POCT ORDERABLES - DEVICE F inal Result Performing Organization Address [facility] Co de Phone Number [facility] ([place]) 1 [facility] [employer] [place] [place] [address] * POCT glucose (11/29/2024 11:41 AM CDT) Glucose, POC 165 70 - 199 mg/dL Blood 11/29/2024 11:4 1 AM CDT 11/29/2024 11:41 AM CDT us Sarah Dawson MD LAB POCT ORDERABLES - DEVICE F inal Result [facility] ([place]) 1 [facility] [employer] [place] [place] [address] * POCT glucose (11/29/2024 8:00 AM CDT) Glucose, POC 189 70 - 199 mg/dL Blood 11/29/2024 8:00 AM CDT 11/29/2024 8:00 AM CDT Sarah Dawson MD LAB POCT ORDERABLES - DEVICE F inal Result Performing Organization Address [facility] Co de Phone Number [facility] MIT[facility] ([place]) 1 [facility] [place] [place] [address] * eGFR (11/29/2024 5:53 AM CDT) eGFR >90 >=60 mL/min/1. 73 m2 Comment: Interpretive Data Reference Interval Normal >/= 90 mL/min/1.73m2 Mildly decreased* 60 - 89 mL/min/1.73m2 Mildly to moderately decreased 45 - 59 mL/min/1.73m2 Moderately to severely decreased 30 - 44 mL/min/1.73m2 Severely decreased 15 - 29 mL/min/1.73m2 Kidney Failure < 15 mL/min/1.73m2 *Relative to young adult level Estimated glomerular filtration rate is determined by the 2020 CKD-EPI equation recommended by the National Kidney Foundation (A Unifying Approach to GFR Estimation: Recommendations of the NKF-ASK Task Force on Reassessing the Inclusion of Race in Diagnosing Kidney Disease, JASN 2020). The CKD-EPI equation should not be used for patients with unstable renal function and has not been validated in children and those over 70. Current interpretive data was last reviewed 2021. Blood 11/29/2024 5:53 AM CDT 11/29/2024 5:58 AM CDT Rajesh Roman MD LAB BLOOD ORDERABLES Final Resu lt SAYRA MITCHELL ([place]) 1 [facility] [place] [address] * Differential, auto (11/29/2024 5:53 AM CDT) Neutrophil abs 3.02 1.50 - 6.50 K/cumm Imm gran abs 0.01 0.00 - 0.10 K/cumm [facility] ([place]) Lymphocyte abs 1.63 0.80 - 3.30 K/cumm [facility] ([place]) Monocyte abs 0.47 0.20 - 0.80 K/cumm [facility] ([place]) Eosinophil abs 0.18 0.00 - 0.50 K/cumm [facility] ([place]) Basophil abs 0.02 0.00 - 0.10 K/cumm [facility] ([place]) Neutrophil pct 56.6 % [facility] ([place]) Comment: Interpretive Data Percent cell count reference ranges are not reported, since discordance with absolute values may lead to misinterpretation of CBC data. Current Interpretive Data was last revised on 2017. Imm gran pct 0.2 % [facility] ([place]) Comment: Interpretive Data Percent cell count reference ranges are not reported, since discordance with absolute values may lead to misinterpretation of CBC data. Current Interpretive Data was last revised on 2017. Lymphocyte pct 30.6 % [facility] ([place]) Comment: Interpretive Data Percent cell count reference ranges are not reported, since discordance with absolute values may lead to misinterpretation of CBC data. Current Interpretive Data was last revised on 2017. Monocyte pct 8.8 % [facility] ([place]) Comment: Interpretive Data Percent cell count reference ranges are not reported, since discordance with absolute values may lead to misinterpretation of CBC data. Current Interpretive Data was last revised on 2017. Eosinophil pct 3.4 % [facility] ([place]) Comment: Interpretive Data Percent cell count reference ranges are not reported, since discordance with absolute values may lead to misinterpretation of CBC data. Current Interpretive Data was last revised on 2017. Basophil pct 0.4 % [facility] ([place]) Comment: Interpretive Data Percent cell count reference ranges are not reported, since discordance with absolute values may lead to misinterpretation of CBC data. Current Interpretive Data was last revised on 2017. Blood 11/29/2024 5:53 AM CDT 11/29/2024 5:58 AM CDT us Rajesh Roman MD LAB BLOOD ORDERABLES Final Resu lt [facility] ([place]) 1 [facility] Department [place] [address] * (ABNORMAL) CBC with auto differential (11/29/2024 5:53 AM CDT) WBC 5.33 3.80 - 9.90 K/cumm Hgb 11.6(L) 11.9 - 15.5 g/dL [facility] ([place]) Hct 35.5(L) 35.6 - 45.5 % [facility] ([place]) Plt 194 150 - 400 K/cumm [facility] ([place]) MPV 10.1 9.1 - 12.3 fL [facility] ([place]) RBC 4.38 3.90 - 5.20 M/cumm [facility] ([place]) MCV 81.1(L) 81.3 - 96.4 fL [facility] ([place]) MCH 26.5(L) 27.1 - 33.3 pg [facility] ([place]) MCHC 32.7 32.3 - 35.7 g/dL [facility] ([place]) RDW CV 13.2 11.1 - 14.9 % [facility] ([place]) RDW SD 38.7 35.7 - 48.1 fL [facility] ([place]) NRBC abs 0.00 0.00 - 0.01 K/cumm [facility] ([place]) Blood 11/29/2024 5:53 AM CDT 11/29/2024 5:58 AM CDT us Rajesh Roman MD LAB BLOOD ORDERABLES Final Resu lt [facility] ([place]) 1 [facility] [place] [address] * (ABNORMAL) Comprehensive metabolic panel (11/29/2024 5:53 AM CDT) Sodium 137 135 - 145 mmol/L [facility] ([place]) Potassium, pl 4.2 3.3 - 4.9 mmol/L [facility] ([place]) Chloride 104 97 - 110 mmol/L [facility] ([place]) CO2 24 22 - 32 mmol/L [facility] ([place]) Anion gap 9 2 - 15 mmol/L [facility] ([place]) BUN 13 6 - 25 mg/dL [facility] ([place]) Creatinine 0.76 0.60 - 1.10 mg/dL [facility] ([place]) Glucose 219(H) 70 - 199 mg/dL [facility] ([place]) Comment: Interpretive Data Fasting glucose >/= 126 mg/dl is diagnostic for diabetes. Fasting is defined as no caloric intake for at least 8 hours. Fasting glucose between 100 mg/dl to 125 mg/dl is diagnostic of prediabetes. In a patient with classic symptoms of hyperglycemia or hyperglycemic crisis, a random glucose >/= 200 mg/dl is diagnostic for diabetes. In the absence of unequivocal hyperglycemia, results should be confirmed by repeat testing. The classification and Diagnosis of Diabetes Diabetes Care 2021; 46: S19-S40. Current interpretive data was last revised 2022. Calcium 9.3 8.5 - 10.3 mg/dL [facility] ([place]) Bilirubin, total 0.2 0.1 - 1.2 mg/dL [facility] ([place]) Protein, pl 6.1(L) 6.5 - 8.5 g/dL [facility] ([place]) Albumin 3.4(L) 3.5 - 5.0 g/dL [facility] ([place]) Alk phos 128 40 - 130 Units/L [facility] ([place]) ALT 28 7 - 45 Units/L [facility] ([place]) AST 28 10 - 45 Units/L [facility] ([place]) Blood 11/29/2024 5:5 3 AM CDT 11/29/2024 5:58 AM CDT Rajesh Roman MD LAB BLOOD ORDERABLES Final Resu lt Performing Organization Address City/[facility]/ZIP Co de Phone Number SAYRA MITCHELL ([place]) 1 [facility] [employer] [place] [place] [address] * POCT glucose (11/29/2024 2:27 AM CDT) Glucose, POC 153 70 - 199 mg/dL Blood 11/29/2024 2:27 AM CDT 11/29/2024 2:27 AM CDT us Sarah Dawson MD LAB POCT ORDERABLES - DEVICE F inal Result Performing Organization Address [facility] de Phone Number SAYRA MITCHELL ([place]) 1 [facility] [employer] [place] [address] * POCT glucose (11/28/2024 4:36 PM CDT) Glucose, POC 154 70 - 199 mg/dL Blood 11/28/2024 4:36 PM CDT 11/28/2024 4:36 PM CDT Sarah Dawson MD LAB POCT ORDERABLES - DEVICE F inal Result Performing Organization Address [facility] Co de Phone Number SAYRA MITCHELL ([place]) 1 [facility] [employer] [place] [place] [address] * POCT glucose (11/28/2024 11:46 AM CDT) Glucose, POC 123 70 - 199 mg/dL Blood 11/28/2024 11:4 6 AM CDT 11/28/2024 11:46 AM CDT Sarah Dawson MD LAB POCT ORDERABLES - DEVICE F inal Result Performing Organization Address City/[facility] Co de Phone Number SAYRA MITCHELL ([place]) 1 [facility] Department [place] [address] * eGFR (11/28/2024 9:11 AM CDT) Pathologist [facility] eGFR >90 >=60 mL/min/1. 73 m2 Comment: Interpretive Data Reference Interval Normal >/= 90 mL/min/1.73m2 Mildly decreased* 60 - 89 mL/min/1.73m2 Mildly to moderately decreased 45 - 59 mL/min/1.73m2 Moderately to severely decreased 30 - 44 mL/min/1.73m2 Severely decreased 15 - 29 mL/min/1.73m2 Kidney Failure < 15 mL/min/1.73m2 *Relative to young adult level Estimated glomerular filtration rate is determined by the 2020 CKD-EPI equation recommended by the National Kidney Foundation (A Unifying Approach to GFR Estimation: Recommendations of the NKF-ASK Task Force on Reassessing the Inclusion of Race in Diagnosing Kidney Disease, JASN 2020). The CKD-EPI equation should not be used for patients with unstable renal function and has not been validated in children and those over 70. Current interpretive data was last reviewed 2021. Blood 11/28/2024 9:11 AM CDT 11/28/2024 9:28 AM CDT us Rajesh Roman MD LAB BLOOD ORDERABLES Final Resu lt SAYRA Case[place]) 1 [facility] Department [place] [address] * Differential, auto (11/28/2024 9:11 AM CDT) Neutrophil abs 3.82 1.50 - 6.50 K/cumm Imm gran abs 0.01 0.00 - 0.10 K/cumm [facility] ([place]) Lymphocyte abs 1.39 0.80 - 3.30 K/cumm [facility] ([place]) Monocyte abs 0.31 0.20 - 0.80 K/cumm [facility] ([place]) Eosinophil abs 0.18 0.00 - 0.50 K/cumm [facility] ([place]) Basophil abs 0.01 0.00 - 0.10 K/cumm [facility] ([place]) Neutrophil pct 66.8 % [facility] ([place]) Comment: Interpretive Data Percent cell count reference ranges are not reported, since discordance with absolute values may lead to misinterpretation of CBC data. Current Interpretive Data was last revised on 2017. Imm gran pct 0.2 % [facility] ([place]) Comment: Interpretive Data Percent cell count reference ranges are not reported, since discordance with absolute values may lead to misinterpretation of CBC data. Current Interpretive Data was last revised on 2017. Lymphocyte pct 24.3 % [facility] ([place]) Comment: Interpretive Data Percent cell count reference ranges are not reported, since discordance with absolute values may lead to misinterpretation of CBC data. Current Interpretive Data was last revised on 2017. Monocyte pct 5.4 % [facility] ([place]) Comment: Interpretive Data Percent cell count reference ranges are not reported, since discordance with absolute values may lead to misinterpretation of CBC data. Current Interpretive Data was last revised on 2017. Eosinophil pct 3.1 % [facility] ([place]) Comment: Interpretive Data Percent cell count reference ranges are not reported, since discordance with absolute values may lead to misinterpretation of CBC data. Current Interpretive Data was last revised on 2017. Basophil pct 0.2 % [facility] ([place]) Comment: Interpretive Data Percent cell count reference ranges are not reported, since discordance with absolute values may lead to misinterpretation of CBC data. Current Interpretive Data was last revised on 2017. Blood 11/28/2024 9:11 AM CDT 11/28/2024 9:28 AM CDT us Rajesh Roman MD LAB BLOOD ORDERABLES Final Resu lt SAYRA MITCHELL ([place]) 1 [facility] Department [place] [address] * (ABNORMAL) CBC with auto differential (11/28/2024 9:11 AM CDT) Pathologist [facility] WBC 5.72 3.80 - 9.90 K/cumm Hgb 11.7(L) 11.9 - 15.5 g/dL [facility] ([place]) Hct 35.8 35.6 - 45.5 % [facility] ([place]) Plt 225 150 - 400 K/cumm [facility] ([place]) MPV 10.4 9.1 - 12.3 fL [facility] ([place]) RBC 4.37 3.90 - 5.20 M/cumm [facility] ([place]) MCV 81.9 81.3 - 96.4 fL [facility] ([place]) MCH 26.8(L) 27.1 - 33.3 pg [facility] ([place]) MCHC 32.7 32.3 - 35.7 g/dL [facility] ([place]) RDW CV 13.2 11.1 - 14.9 % [facility] ([place]) RDW SD 39.5 35.7 - 48.1 fL [facility] ([place]) NRBC abs 0.00 0.00 - 0.01 K/cumm [facility] ([place]) Blood 11/28/2024 9:11 AM CDT 11/28/2024 9:28 AM CDT us Rajesh Roman MD LAB BLOOD ORDERABLES Final Resu lt [facility] ([place]) 1 [facility] Department [place] [address] * (ABNORMAL) Comprehensive metabolic panel (11/28/2024 9:11 AM CDT) Pathologist [facility] Sodium 139 135 - 145 mmol/L [facility]) Potassium, pl 3.8 3.3 - 4.9 mmol/L [facility] ([place]) Chloride 105 97 - 110 mmol/L [facility] ([place]) CO2 24 22 - 32 mmol/L [facility] Anion gap 10 2 - 15 mmol/L [facility] ([place]) BUN 10 6 - 25 mg/dL [facility] ([place]) Creatinine 0.76 0.60 - 1.10 mg/dL [facility] ([place]) Glucose 231(H) 70 - 199 mg/dL [facility] ([place]) Comment: Interpretive Data Fasting glucose >/= 126 mg/dl is diagnostic for diabetes. Fasting is defined as no caloric intake for at least 8 hours. Fasting glucose between 100 mg/dl to 125 mg/dl is diagnostic of prediabetes. In a patient with classic symptoms of hyperglycemia or hyperglycemic crisis, a random glucose >/= 200 mg/dl is diagnostic for diabetes. In the absence of unequivocal hyperglycemia, results should be confirmed by repeat testing. The classification and Diagnosis of Diabetes Diabetes Care 202; 46: S19-S40. Current interpretive data was last revised 2022. Calcium 9.2 8.5 - 10.3 mg/dL [facility] ([place]) Bilirubin, total 0.2 0.1 - 1.2 mg/dL [facility] ([place]) Protein, pl 6.0(L) 6.5 - 8.5 g/dL [facility] ([place]) Albumin 3.4(L) 3.5 - 5.0 g/dL [facility] ([place]) Alk phos 114 40 - 130 Units/L [facility] ([place]) ALT 24 7 - 45 Units/L [facility] ([place]) AST 29 10 - 45 Units/L [facility] ([place]) Blood 11/28/2024 9:11 AM CDT 11/28/2024 9:28 AM CDT us Rajesh Roman MD LAB BLOOD ORDERABLES Final Resu lt [facility] ([place]) 1 [facility] Department [place] [address] * (ABNORMAL) POCT glucose (11/28/2024 7:42 AM CDT) Glucose, POC 223(H) 70 - 199 mg/dL Blood 11/28/2024 7:42 AM CDT 11/28/2024 7:42 AM CDT us Sarah Dawson MD LAB POCT ORDERABLES - DEVICE F inal Result SAYRA MITCHELL ([place]) 1 [facility] [employer] [place] [place] [address] * POCT glucose (11/28/2024 2:25 AM CDT) Glucose, POC 148 70 - 199 mg/dL Blood 11/28/2024 2:25 AM CDT 11/28/2024 2:25 AM CDT Sarah Dawson MD LAB POCT ORDERABLES - DEVICE F inal Result Performing Organization Address City/[facility]/ZIP Co de Phone Number [facility] ([place]) 1 [facility] [employer] [place] [address] * POCT glucose (11/27/2024 10:44 PM CDT) Glucose, POC 146 70 - 199 mg/dL Blood 11/27/2024 10:4 4 PM CDT 11/27/2024 10:44 PM CDT Sarah Dawson MD LAB POCT ORDERABLES - DEVICE F inal Result Performing Organization Address City/[facility]/ZIP Co de Phone Number [facility] ([place]) 1 [facility] [employer] [place] [address] * POCT glucose (11/27/2024 4:31 PM CDT) Glucose, POC 140 70 - 199 mg/dL Blood 11/27/2024 4:31 PM CDT 11/27/2024 4:31 PM CDT Sarah Dawson MD LAB POCT ORDERABLES - DEVICE F inal Result [facility] ([place]) 1 [facility] [employer] [place] [address] * POCT glucose (11/27/2024 11:11 AM CDT) Glucose, POC 187 70 - 199 mg/dL Blood 11/27/2024 11:1 1 AM CDT 11/27/2024 11:11 AM CDT Sarah Dawson MD LAB POCT ORDERABLES - DEVICE F inal Result Performing Organization Address City/[facility]/ZIP Co de Phone Number SAYRA MITCHELL ([place]) 1 [facility] [employer] [place] [address] * Calcium, ionized, whole blood (11/27/2024 10:00 AM CDT) [facility] Ca, ionized, bld 4.66 4.50 - 5.10 mg/dL Blood 11/27/2024 10:0 0 AM CDT 11/27/2024 10:02 AM CDT Sarah Dawson MD LAB BLOOD ORDERABLES Final Res ult Performing Organization Address [facility] Co de Phone Number SAYRA MITCHELL ([place]) 1 [facility] [employer] [place] [address] * (ABNORMAL) CBC without differential (11/27/2024 8:49 AM CDT) [facility] WBC 5.26 3.80 - 9.90 K/cumm Hgb 13.1 11.9 - 15.5 g/dL [facility] ([place]) Hct 40.7 35.6 - 45.5 % [facility] ([place]) Plt 258 150 - 400 K/cumm [facility] ([place]) MPV 10.5 9.1 - 12.3 fL [facility] ([place]) RBC 4.89 3.90 - 5.20 M/cumm [facility] ([place]) MCV 83.2 81.3 - 96.4 fL [facility] ([place]) MCH 26.8(L) 27.1 - 33.3 pg [facility] ([place]) MCHC 32.2(L) 32.3 - 35.7 g/dL [facility] ([place]) RDW CV 13.4 11.1 - 14.9 % [facility] ([place]) RDW SD 40.2 35.7 - 48.1 fL [facility] ([place]) NRBC abs 0.00 0.00 - 0.01 K/cumm [facility] ([place]) Blood 11/27/2024 8:49 AM CDT 11/27/2024 9:04 AM CDT Sarah Dawson MD LAB BLOOD ORDERABLES Final Res ult SAYRA [facility] ([place]) 1 [facility] [place] [facility] [employer] [place] [address] * POCT glucose (11/27/2024 7:46 AM CDT) Glucose, POC 132 70 - 199 mg/dL Blood 11/27/2024 7:46 AM CDT 11/27/2024 7:46 AM CDT Sarah Dawson MD LAB POCT ORDERABLES - DEVICE F inal Result Performing Organization Address City/[facility]/ZIP Co de Phone Number SAYRA MITCHELL ([place]) 1 [facility] [place] [address] * eGFR (11/27/2024 5:53 AM CDT) eGFR >90 >=60 mL/min/1. 73 m2 Comment: Interpretive Data Reference Interval Normal >/= 90 mL/min/1.73m2 Mildly decreased* 60 - 89 mL/min/1.73m2 Mildly to moderately decreased 45 - 59 mL/min/1.73m2 Moderately to severely decreased 30 - 44 mL/min/1.73m2 Severely decreased 15 - 29 mL/min/1.73m2 Kidney Failure < 15 mL/min/1.73m2 *Relative to young adult level Estimated glomerular filtration rate is determined by the 2020 CKD-EPI equation recommended by the National Kidney Foundation (A Unifying Approach to GFR Estimation: Recommendations of the NKF-ASK Task Force on Reassessing the Inclusion of Race in Diagnosing Kidney Disease, JASN 2020). The CKD-EPI equation should not be used for patients with unstable renal function and has not been validated in children and those over 70. Current interpretive data was last reviewed 2021. Blood 11/27/2024 5:53 AM CDT 11/27/2024 6:13 AM CDT us Rajesh Roman MD LAB BLOOD ORDERABLES Final Resu lt [facility] ([place]) 1 [facility] [place] [address] * (ABNORMAL) Comprehensive metabolic panel (11/27/2024 5:53 AM CDT) Sodium 137 135 - 145 mmol/L [facility] ([place]) Potassium, pl 4.7 3.3 - 4.9 mmol/L [facility] ([place]) Chloride 106 97 - 110 mmol/L [facility] ([place]) CO2 20(L) 22 - 32 mmol/L [facility] ([place]) Anion gap 11 2 - 15 mmol/L [facility] ([place]) BUN 9 6 - 25 mg/dL [facility] ([place]) Creatinine 0.73 0.60 - 1.10 mg/dL [facility] ([place]) Glucose 135 70 - 199 mg/dL [facility] ([place]) Comment: Interpretive Data Fasting glucose >/= 126 mg/dl is diagnostic for diabetes. Fasting is defined as no caloric intake for at least 8 hours. Fasting glucose between 100 mg/dl to 125 mg/dl is diagnostic of prediabetes. In a patient with classic symptoms of hyperglycemia or hyperglycemic crisis, a random glucose >/= 200 mg/dl is diagnostic for diabetes. In the absence of unequivocal hyperglycemia, results should be confirmed by repeat testing. The classification and Diagnosis of Diabetes Diabetes Care 2021; 46: S19-S40. Current interpretive data was last revised 2022. Calcium 9.2 8.5 - 10.3 mg/dL [facility] ([place]) Bilirubin, total 0.3 0.1 - 1.2 mg/dL [facility] ([place]) Protein, pl 5.9(L) 6.5 - 8.5 g/dL [facility] ([place]) Albumin 3.2(L) 3.5 - 5.0 g/dL [facility] ([place]) Alk phos 87 40 - 130 Units/L [facility] ([place]) ALT 7 7 - 45 Units/L [facility] ([place]) Comment:Hemolysis present. R esults may be affected. AST 29 10 - 45 Units/L [facility] ([place]) Comment:Hemolysis present. R esults may be affected. Blood 11/27/2024 5:53 AM CDT 11/27/2024 6:13 AM CDT Rajesh Roman MD LAB BLOOD ORDERABLES Final Resu lt Performing Organization Address [facility]/ZIP Co de Phone Number SAYRA MITCHELL ([place]) 1 [facility] [employer] [place] [address] * POCT glucose (11/27/2024 2:13 AM CDT) Glucose, POC 155 70 - 199 mg/dL Blood 11/27/2024 2:13 AM CDT 11/27/2024 2:13 AM CDT Sarah Dawson MD LAB POCT ORDERABLES - DEVICE F inal Result Performing Organization Address [facility] Co de Phone Number SAYRA MITCHELL ([place]) 1 [facility] of [employer] [place] [address] * POCT glucose (11/26/2024 9:00 PM CDT) Glucose, POC 133 70 - 199 mg/dL Blood 11/26/2024 9:00 PM CDT 11/26/2024 9:00 PM CDT Sarah Dawson MD LAB POCT ORDERABLES - DEVICE F inal Result Performing Organization Address [facility]/ZIP Co de Phone Number SAYRA MICTHELL ([place]) 1 [facility] [place] [address] * POCT glucose (11/26/2024 4:32 PM CDT) Glucose, POC 107 70 - 199 mg/dL Blood 11/26/2024 4:32 PM CDT 11/26/2024 4:32 PM CDT us Sarah Dawson MD LAB POCT ORDERABLES - DEVICE F inal Result SAYRA MITCHELL ([place]) 1 [facility] [place] [address] * TRANSESOPHAGEAL ECHO (PATRICK) W DOPPLER/CF WO CONTRAST (11/26/2024 2:22 PM CDT) Anatomical Region Laterality Modality Ultrasound 11/26/2024 Narrative 11/30/2024 6:29 AM CDT [employer] Job ID: [id number] [employer] Document ID: [id number] Dictated date/time: [id number] TRANSESOPHAGEAL ECHOCARDIOGRAM A 44-year-old admitted with stroke. Transesophageal echo was requested to rule out cardiac sources for embolism. After obtaining informed consent, patient brought to the echo lab. Noninvasive blood pressure, heart rate and oxygen saturation monitoring was applied. Topical anesthesia was applied to posterior oropharynx. Conscious sedation was administered by the laborer landscape staff under my supervision. A total of 2 mg of Versed, 100 mcg of fentanyl were given in divided doses. See procedure log for further details. Total sedation time 11 minutes. The probe was passed without difficulty. Full study including 2D color-flow and spectral Doppler was performed. Adequate images were obtained and procedure well tolerated. FINDINGS 1. Normal left ventricular systolic function, estimated ejection fraction 65%. 2. Anatomically normal mitral valve with mild mitral regurgitation and normal pulmonary vein flow pattern. 3. Anatomically normal aortic valve with trivial aortic insufficiency. 4. Mild tricuspid regurgitation. 5. The interatrial septum was anatomically normal. There was no evidence of shunt by bubble injection. 6. Normal left atrium and left atrial appendage without evidence of spontaneous contrast or thrombus. Appendage velocity was over 50 cm/second. 7. The aorta was smooth without protruding plaque or mobile elements. IMPRESSION No cardiac sources of embolism identified on this study. Ciro Hagan MD Job ID/Internal Job ID: [id number] Sarah Dawson MD CV ECHO PROCEDURES Final Resul t * POCT glucose (11/26/2024 11:37 AM CDT) Glucose, POC 139 70 - 199 mg/dL Blood 11/26/2024 11:3 7 AM CDT 11/26/2024 11:37 AM CDT Sarah Dawson MD LAB POCT ORDERABLES - DEVICE F inal Result Performing Organization Address City/[facility]/ZIP Co de Phone Number [facility] ([place]) [address] [place] [address] [place] [address] * POCT glucose (11/26/2024 8:03 AM CDT) Glucose, POC 123 70 - 199 mg/dL Blood 11/26/2024 8:03 AM CDT 11/26/2024 8:03 AM CDT Sarah Dawson MD LAB POCT ORDERABLES - DEVICE F inal Result Performing Organization Address City/[facility]/ZIP Co de Phone Number [facility] [address] [place] [address] [place] [address] * eGFR (11/26/2024 5:04 AM CDT) eGFR 90 >=60 mL/min/1. 73 m2 Comment: Interpretive Data Reference Interval Normal >/= 90 mL/min/1.73m2 Mildly decreased* 60 - 89 mL/min/1.73m2 Mildly to moderately decreased 45 - 59 mL/min/1.73m2 Moderately to severely decreased 30 - 44 mL/min/1.73m2 Severely decreased 15 - 29 mL/min/1.73m2 Kidney Failure < 15 mL/min/1.73m2 *Relative to young adult level Estimated glomerular filtration rate is determined by the 2020 CKD-EPI equation recommended by the National Kidney Foundation (A Unifying Approach to GFR Estimation: Recommendations of the NKF-ASK Task Force on Reassessing the Inclusion of Race in Diagnosing Kidney Disease, JASN 2020). The CKD-EPI equation should not be used for patients with unstable renal function and has not been validated in children and those over 70. Current interpretive data was last reviewed 2021. Blood 11/26/2024 5:04 AM CDT 11/26/2024 5:45 AM CDT us Rajesh Roman MD LAB BLOOD ORDERABLES Final Resu lt [facility] ([place]) 1 [facility] [place] [address] * Differential, auto (11/26/2024 5:04 AM CDT) Neutrophil abs 3.29 1.50 - 6.50 K/cumm Imm gran abs 0.01 0.00 - 0.10 K/cumm [facility] ([place]) Lymphocyte abs 1.24 0.80 - 3.30 K/cumm [facility] ([place]) Monocyte abs 0.29 0.20 - 0.80 K/cumm [facility] ([place]) Eosinophil abs 0.14 0.00 - 0.50 K/cumm [facility] ([place]) Basophil abs 0.02 0.00 - 0.10 K/cumm [facility] ([place]) Neutrophil pct 66.0 % [facility] ([place]) Comment: Interpretive Data Percent cell count reference ranges are not reported, since discordance with absolute values may lead to misinterpretation of CBC data. Current Interpretive Data was last revised on 2017. Imm gran pct 0.2 % [facility] ([place]) Comment: Interpretive Data Percent cell count reference ranges are not reported, since discordance with absolute values may lead to misinterpretation of CBC data. Current Interpretive Data was last revised on 2017. Lymphocyte pct 24.8 % [facility] ([place] Comment: Interpretive Data Percent cell count reference ranges are not reported, since discordance with absolute values may lead to misinterpretation of CBC data. Current Interpretive Data was last revised on 2017. Monocyte pct 5.8 % [facility] ([place]) Comment: Interpretive Data Percent cell count reference ranges are not reported, since discordance with absolute values may lead to misinterpretation of CBC data. Current Interpretive Data was last revised on 2017. Eosinophil pct 2.8 % [facility] ([place] Comment: Interpretive Data Percent cell count reference ranges are not reported, since discordance with absolute values may lead to misinterpretation of CBC data. Current Interpretive Data was last revised on 2017. Basophil pct 0.4 % [facility] ([place] Comment: Interpretive Data Percent cell count reference ranges are not reported, since discordance with absolute values may lead to misinterpretation of CBC data. Current Interpretive Data was last revised on 2017. Blood 11/26/2024 5:04 AM CDT 11/26/2024 5:46 AM CDT us Rajesh Roman MD LAB BLOOD ORDERABLES Final Resu lt [facility] ([place]) [facility] Department [place] [address] * (ABNORMAL) CBC with auto differential (11/26/2024 5:04 AM CDT) WBC 4.99 3.80 - 9.90 K/cumm Hgb 11.8(L) 11.9 - 15.5 g/dL [facility] ([place]) Hct 36.9 35.6 - 45.5 % [facility] Plt 254 150 - 400 K/cumm [facility] ([place]) MPV 10.7 9.1 - 12.3 fL [facility]) RBC 4.48 3.90 - 5.20 M/cumm [facility]) MCV 82.4 81.3 - 96.4 fL [facility] MCH 26.3(L) 27.1 - 33.3 pg [facility] ([place]) MCHC 32.0(L) 32.3 - 35.7 g/dL [facility] ([place]) RDW CV 13.7 11.1 - 14.9 % [facility] ([place]) RDW SD 40.9 35.7 - 48.1 fL [facility] ([place]) NRBC abs 0.00 0.00 - 0.01 K/cumm [facility]) Blood 11/26/2024 5:04 AM CDT 11/26/2024 5:46 AM CDT us Rajesh Roman MD LAB BLOOD ORDERABLES Final Resu lt [facility] ([place] [place] [address] * (ABNORMAL) Lipid panel (11/26/2024 5:04 AM CDT) Cholesterol 170 30 - 199 mg/dL [facility] ([place]) Comment: Interpretive Data Ages < or = 19 years Acceptable: <170 mg/dL Borderline high: 170-199 mg/dL High: >or= 200 mg/dL Ages > or = 20 years Desirable: <200 mg/dL Borderline high: 200-239 mg/dL High: >or= 240 mg/dL Literature References: 1. Expert Panel on Integrated Guidelines for Cardiovascular Health and Risk Reduction in Children and Adolescents. Pediatrics 2011;128:S213 2. NCEP Expert Panel. Circulation 2004;110:227 Current Interpretive Data was last revised on 2017. Triglycerides 225(H) <=149 mg/dL [facility] ([place]) Comment: Interpretive Data Ages < or = 9 years Acceptable: <75 mg/dL Borderline high: 75-99 mg/dL High: >or= 100 mg/dL Ages 10 to 20 years Acceptable: <90 mg/dL Borderline high: 90-129 mg/dL High: >or= 130 mg/dL Ages > or = 20 years Desirable: <150 mg/dL Borderline high: 150-199 mg/dL High: 200-499 mg/dL Very high: >or= 499 mg/dL Literature References: 1. Expert Panel on Integrated Guidelines for Cardiovascular Health and Risk Reduction in Children and Adolescents. Pediatrics 2011;128:S213 2. NCEP Expert Panel. Circulation 2004;110:227 Current Interpretive Data was last revised on 2017. HDL 38(L) >=40 mg/dL [facility] ([place]) Comment: Interpretive Data Ages < or = 19 years Acceptable: >45 mg/dL Borderline low: 40-45 mg/dL Low: <40 mg/dL Ages > or = 20 years Desirable: >or= 60 mg/dL Low: <40 mg/dL Literature References: 1. Expert Panel on Integrated Guidelines for Cardiovascular Health and Risk Reduction in Children and Adolescents. Pediatrics 2011;128:S213 2. NCEP Expert Panel. Circulation 2004;110:227 Current Interpretive Data was last revised on 2017. LDL, calculated 94 <=129 mg/dL [facility] ([place]) Comment: Interpretive Data Ages < or = 19 years Acceptable: <110 mg/dL Borderline high: 110-129 mg/dL High: >or= 130 mg/dL Ages > or = 20 years Optimal: <100 mg/dL Near optimal: 100-129 mg/dL Borderline high: 130-159 mg/dL High: >160 mg/dL Calculated using the Keith LDL-C estimating equation. This equation was implemented on 2023. Prior to this date LDL-C was estimated using the Friedewald equation. Literature References: 1. Expert Panel on Integrated Guidelines for Cardiovascular Health and Risk Reduction in Children and Adolescents. Pediatrics 2011;128:S213 2. NCEP Expert Panel. Circulation 2004;110:227 3. Keith Padilla al. ALICE Cardiol. 2020 July 23;5(5):540-548. doi: 10.1001/jamacardio.2020.0013 Current Interpretive Data was last revised on 2023. Testing performed by: [facility], [facility], [place], [address] Non-HDL Cholesterol 132 mg/dL [facility] ([place]) Comment: Interpretive Data Ages < or = 19 years Acceptable: <120 mg/dL Borderline high: 120-144 mg/dL High: >145 mg/dL Ages > or = 20 years When triglycerides are >200 mg/dL, Non-HDL cholesterol is a secondary target of therapy with treatment goals that are 30 mg/dL greater than the LDL cholesterol target. Literature References: 1. Expert Panel on Integrated Guidelines for Cardiovascular Health and Risk Reduction in Children and Adolescents. Pediatrics 2011;128:S213 2. NCEP Expert Panel. Circulation 2004;110:227 Current Interpretive Data was last revised on 2017. Testing performed by: [place], [address] Chol/HDL ratio 4 [facility] ([place]) Comment:Testing performed by : [place], [address] Blood 11/26/2024 5:04 AM CDT 11/26/2024 5:45 AM CDT us Juan Jim NP LAB BLOOD ORDERABLES Final Result [facility] ([place]) [address] [place] [address] Department [place] [address] * (ABNORMAL) Comprehensive metabolic panel (11/26/2024 5:04 AM CDT) Sodium 140 135 - 145 mmol/L [facility] Potassium, pl 3.8 3.3 - 4.9 mmol/L [facility]) Chloride 109 97 - 110 mmol/L [facility] CO2 23 22 - 32 mmol/L [facility]) Anion gap 8 2 - 15 mmol/L [facility] BUN 10 6 - 25 mg/dL [facility] Creatinine 0.83 0.60 - 1.10 mg/dL [facility] ([place]) Glucose 141 70 - 199 mg/dL [facility] ([place]) Comment: Interpretive Data Fasting glucose >/= 126 mg/dl is diagnostic for diabetes. Fasting is defined as no caloric intake for at least 8 hours. Fasting glucose between 100 mg/dl to 125 mg/dl is diagnostic of prediabetes. In a patient with classic symptoms of hyperglycemia or hyperglycemic crisis, a random glucose >/= 200 mg/dl is diagnostic for diabetes. In the absence of unequivocal hyperglycemia, results should be confirmed by repeat testing. The classification and Diagnosis of Diabetes Diabetes Care 2021; 46: S19-S40. Current interpretive data was last revised 2022. Calcium 8.3(L) 8.5 - 10.3 mg/dL [facility]) Bilirubin, total 0.2 0.1 - 1.2 mg/dL [facility] ([place]) Protein, pl 5.8(L) 6.5 - 8.5 g/dL [facility]) Albumin 3.5 3.5 - 5.0 g/dL [facility]) Alk phos 80 40 - 130 Units/L [facility]) ALT 9 7 - 45 Units/L [facility] AST 14 10 - 45 Units/L [facility] ([place]) Blood 11/26/2024 5:04 AM CDT 11/26/2024 5:45 AM CDT us Rajesh Roman MD LAB BLOOD ORDERABLES Final Resu lt [facility] ([place]) [address] [facility] [place] [address] * POCT glucose (11/26/2024 2:11 AM CDT) Glucose, POC 133 70 - 199 mg/dL Blood 11/26/2024 2:11 AM CDT 11/26/2024 2:11 AM CDT us Sarah Dawson MD LAB POCT ORDERABLES - DEVICE F inal Result Performing Organization Address City/[facility]/ZIP Co de Phone Number [facility] ([place]) [address] [facility] [place] [address] * POCT glucose (11/25/2024 8:01 PM CDT) Glucose, POC 128 70 - 199 mg/dL Blood 11/25/2024 8:01 PM CDT 11/25/2024 8:01 PM CDT us Sarah Dawson MD LAB POCT ORDERABLES - DEVICE F inal Result [facility] [place] Department [place] [address] * CTA Head Neck W WO Contrast (11/25/2024 6:19 PM CDT) Anatomical Region Laterality Modality Head and Neck N/A Computed Tomogra phy 11/26/2024 5:54 AM CDT Narrative 11/26/2024 6:21 AM CDT EXAM DESCRIPTION: CTA HEAD NECK W WO CONTRAST REASON FOR STUDY: acute stroke Altered mental status, hx of stroke, see results of MRI done on 11/25/24 TECHNIQUE: Axial dynamic scanning technique with dynamic contrast enhancement through the intracranial and extracranial carotid and vertebral arteries. Multiplanar reconstruction. All stenosis measurements are based on NASCET criteria. 3D MIP images rendered on scanning unit and reviewed at time of interpretation. Automated exposure control was used as a dose optimization technique for this examination. CONTRAST TYPE/DOSE: 100mL of IOVERSOL 350 MG IODINE/ML INTRAVENOUS SYRINGE injected via intravenous COMPARISON: Head CT of November 25, 2024 . FINDINGS: INTRACRANIAL VESSELS [place]: The [id number] is intact. ANTERIOR CIRCULATION: The carotid siphons are patent. There is a focal area of significant stenosis in the left anterior cerebral artery in the distal A3 segment (series 4, images 198-203). There are multiple areas of severe stenosis of the right anterior cerebral artery in the A2 segment and scattered through out the A3 segment with long segments of absent opacification. The anterior communicating artery is patent. The left middle cerebral artery is patent. The right middle cerebral artery is patent, however, there are multiple focal severe stenoses seen within the inferior and superior divisions of the M2 segment. POSTERIOR CIRCULATION: The posterior cerebral arteries are patent. There are irregular mild stenoses seen mid P2 segment on the right. The basilar artery is patent. The distal vertebral arteries are patent. There is irregular stenosis of the distal V4 segment of the right vertebral artery. The left vertebral artery is dominant. CAROTID CTA AORTIC ARCH: The aortic arch is normal with three-vessel anatomy. RIGHT CAROTIDS: The right common and internal carotid arteries are patent. No significant stenosis. No dissection. LEFT CAROTIDS: The left common and internal carotid arteries are patent. No significant stenosis. No dissection. RIGHT VERTEBRAL: Again, there is focal severe stenosis of the distal V4 segment of the right vertebral artery (series 4, image 307). There is an irregular slightly beaded appearance of the V1 and proximal V2 segment of the right vertebral artery. The right vertebral artery is otherwise patent without evidence of dissection. LEFT VERTEBRAL: Patent. No significant stenosis. No dissection. NON-VASCULAR SOFT TISSUES: No mass or adenopathy. No thyroid nodule greater than 1 cm. BONES: No acute bony abnormality seen. LUNG APICES: The lung apices are clear. OTHER: No other significant finding. IMPRESSION: 1. 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 2. Irregular stenosis of the distal V4 segment of the right vertebral artery. 3. Irregular slightly beaded appearance of the V1 and proximal V2 segment of the right vertebral artery. 4. Stenoses may be secondary to fibromuscular dysplasia. 5. No evidence of carotid or vertebral artery dissection. THIS IS AN ELECTRONICALLY VERIFIED FINAL REPORT 11/26/2024 6:21 AM - Electronically signed by Lynnette Judge M.D. SN: Report ID: [id number] Reading Location: [place] [address] Procedure Note Lynnette Judge MD - 11/26/2024 EXAM DESCRIPTION: CTA HEAD NECK W WO CONTRAST REASON FOR STUDY: acute stroke Altered mental status, hx of stroke, see results of MRI done on 11/25/24 TECHNIQUE: Axial dynamic scanning technique with dynamic contrastenhancement through the intracranial and extracranial carotid and vertebral arteries. Multiplanar reconstruction. All stenosis measurements are based on NASCET criteria. 3D MIP images rendered on scanning unit and reviewed at time of interpretation. Automated exposure control was used as a dose optimization technique forthis examination. CONTRAST TYPE/DOSE: 100mL of IOVERSOL 350 MG IODINE/ML INTRAVENOUSSYRINGE injected via intravenous COMPARISON: Head CT of November 25, 2024 . FINDINGS: INTRACRANIAL VESSELS [place] [employer] [employer] [employer] [place]: The yrmmmh-cl-Iajnra is intact. ANTERIOR CIRCULATION: The carotid siphons are patent. There is a focalarea of significant stenosis in the left anterior cerebral artery in the distalA3 segment (series 4, images 198-203). There are multiple areas of severe stenosis of the right anterior cerebral artery in the A2 segment andscattered through out the A3 segment with long segments of absent opacification.The anterior communicating artery is patent. The left middle cerebral arteryis patent. The right middle cerebral artery is patent, however, there are multiple focal severe stenoses seen within the inferior and superiordivisions of the M2 segment. POSTERIOR CIRCULATION: The posterior cerebral arteries are patent.There are irregular mild stenoses seen mid P2 segment on the right. Thebasilar artery is patent. The distal vertebral arteries are patent. There is irregular stenosis of the distal V4 segment of the right vertebral artery. The left vertebral artery is dominant. CAROTID CTA AORTIC ARCH: The aortic arch is normal with three-vessel anatomy. RIGHT CAROTIDS: The right common and internal carotid arteries arepatent. No significant stenosis. No dissection. LEFT CAROTIDS: The left common and internal carotid arteries are patent.No significant stenosis. No dissection. RIGHT VERTEBRAL: Again, there is focal severe stenosis of the distal V4 segment of the right vertebral artery (series 4, image 307). There is an irregular slightly beaded appearance of the V1 and proximal V2 segment ofthe right vertebral artery. The right vertebral artery is otherwise patent without evidence of dissection. LEFT VERTEBRAL: Patent. No significant stenosis. No dissection. NON-VASCULAR SOFT TISSUES: No mass or adenopathy. No thyroid nodulegreater than 1 cm. BONES: No acute bony abnormality seen. LUNG APICES: The lung apices are clear. OTHER: No other significant finding. IMPRESSION: 1. Multiple areas of severe stenosis of the right anterior cerebralartery, right middle cerebral artery, and left anterior cerebral artery. 2. Irregular stenosis of the distal V4 segment of the right vertebralartery. 3. Irregular slightly beaded appearance of the V1 and proximal I0juqyguj of the right vertebral artery. 4. Stenoses may be secondary to fibromuscular dysplasia. 5. No evidence of carotid or vertebral artery dissection. THIS IS AN ELECTRONICALLY VERIFIED FINAL REPORT 11/26/2024 6:21 AM - Electronically signed by Lynnette Judge M.D. SN: Report ID: [id number] Reading Location: [id number] Sarah Dawson MD IMG CT PROCEDURES Final Result * POCT glucose (11/25/2024 4:48 PM CDT) Glucose, POC 148 70 - 199 mg/dL Blood 11/25/2024 4:48 PM CDT 11/25/2024 4:48 PM CDT Sarah aDwson MD LAB POCT ORDERABLES - DEVICE F inal Result [facility] ([place]) [address] [facility] Department [place] [address] * CT Head WO Contrast (11/25/2024 4:00 PM CDT) Anatomical Region Laterality Modality Head and Neck N/A Computed Tomogra phy 11/26/2024 5:23 AM CDT Narrative 11/26/2024 5:26 AM CDT EXAM DESCRIPTION: CT HEAD WO CONTRAST REASON FOR STUDY: hx of stroke, acute on chronic left side weakness Altered mental status, hx of stroke. TECHNIQUE: Axial images acquired through the brain without intravenous contrast. Coronal and sagittal reformats were performed. Images stored on PACS. Automated mA/kV exposure control was used as a dose optimization technique for this examination and patient examination was performed in strict accordance with principles of ALARA. COMPARISON: MRI of the brain of November 25, 2024. FINDINGS: BRAIN: There is no midline shift, mass or mass effect. The ventricles, cisterns and sulci are within normal limits. There is normal differentiation of the vega-white matter. There is no intracranial hemorrhage. There are multiple focal areas of encephalomalacia seen in the white matter of the frontal lobes bilaterally in the right parietal lobe, consistent with old infarcts, not significantly changed from previous. EXTRA-AXIAL SPACES: No fluid collections. No masses. CALVARIUM: No fracture. SINUSES/MASTOIDS: No fluid or mucosal thickening. ORBITS: No significant abnormality. OTHER: No other significant abnormality. IMPRESSION: No acute intracranial findings. Multiple bilateral old frontal and right parietal infarcts. THIS IS AN ELECTRONICALLY VERIFIED FINAL REPORT 11/26/2024 5:26 AM - Electronically signed by Lynnette Judge M.D. SN: SN Report ID: [id number] Reading Location: [id number] Procedure Note Lynnette Judge MD - 11/26/2024 EXAM DESCRIPTION: CT HEAD WO CONTRAST REASON FOR STUDY: hx of stroke, acute on chronic left side weakness Altered mental status, hx of stroke. TECHNIQUE: Axial images acquired through the brain without intravenous contrast. Coronal and sagittal reformats were performed. Images storedon PACS. Automated mA/kV exposure control was used as a dose optimization technique for this examination and patient examination was performed instrict accordance with principles of ALARA. COMPARISON: MRI of the brain of November 25, 2024. FINDINGS: BRAIN: There is no midline shift, mass or mass effect. The ventricles, cisterns and sulci are within normal limits. There is normaldifferentiation of the vega-white matter. There is no intracranial hemorrhage. Thereare multiple focal areas of encephalomalacia seen in the white matter of the frontal lobes bilaterally in the right parietal lobe, consistent with old infarcts, not significantly changed from previous. EXTRA-AXIAL SPACES: No fluid collections. No masses. CALVARIUM: No fracture. SINUSES/MASTOIDS: No fluid or mucosal thickening. ORBITS: No significant abnormality. OTHER: No other significant abnormality. IMPRESSION: No acute intracranial findings. Multiple bilateral old frontal and right parietal infarcts. THIS IS AN ELECTRONICALLY VERIFIED FINAL REPORT 11/26/2024 5:26 AM - Electronically signed by Lynnette Judge M.D. 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 Additional sequence(s) sensitive to blood products. Images stored on PACS. COMPARISON: None available. FINDINGS: Multiple of the sequences are degraded by motion related artifact. Right frontal and parietal paramedian diffusion restriction with T2/FLAIR hyperintense signal in keeping with acute/recent infarction. Additional diffusion restriction along the right splenium of the corpus callosum and right occipital periventricular white matter in keeping with a additional acute/recent infarctions. The right parietal and medial occipital linear susceptibility signal with T2/FLAIR hyperintensity and T1 hypointense signal could reflect areas of prior infarctions with blood degradation products. Alternatively underlying vessel could also have similar appearance. If this is a new finding for the patient then consider a complete pre and postcontrast MRI of the brain. Additionally, there is asymmetric prominence of the vessels along the paramedian right frontal and parietal lobes (series 11, image [id number]). Attention on follow-up complete pre and postcontrast MRI brain and CTA head and neck. There are a few small chronic infarctions in the bilateral holt radiata, basal ganglia and left thalamus but advanced for the patient's age. Wallerian degeneration along the right cortical spinal tract down to the level of the right midbrain. Request correlation with patient's risk factors. Elsewhere in the brain the txvfi-yhlliju-ujte-left subcortical and periventricular white matter T2/FLAIR hyperintense signal in the bilateral cerebral hemispheres, yusud-oainczu-fmls-left. These lesions are nonspecific in appearance and may be seen with accelerated small vessel ischemic disease, vasculopathies, migraine headache, Lyme disease, and residua from inflammatory or traumatic insult to the brain. Current distribution is not classic for demyelination would be included in the differential in the proper clinical scenario. The bilateral globes are symmetric. The imaged paranasal sinuses are predominantly clear. Trace T2 hyperintense in the left mastoid air cells. IMPRESSION: 1. Right cerebral hemisphere multifocal acute/recent infarctions as above. 2. A few chronic infarctions. 3. The white matter T2/FLAIR hyperintense signal as is nonspecific and could reflect accelerated chronic microvascular ischemic type change in a patient of this age. Other possibilities as above. 4. Right cerebral hemisphere asymmetric vessels in part could be related to the adjacent infarctions. Attention on follow-up complete pre and postcontrast MRI brain and CTA head and neck. The above findings discussed with the patient's nurse VALE Mclain via telephone by pa Dr. Wilder Palma on 11/25/2024 at 3:56 pm central standard time. THIS IS AN ELECTRONICALLY VERIFIED FINAL REPORT 11/25/2024 4:03 PM - Electronically signed by Devin Palma D.O. AP: AP Report ID: [id number] Reading Location: [id number] Procedure Note Devin Palma, DO - 11/25/2024 EXAM DESCRIPTION: MRI BRAIN WO CONTRAST REASON FOR STUDY: acute on chronic left side weakness, rule out cva Pt has hypertension and has been admitted to the hospital because sherelapsed back to using illegal drugs TECHNIQUE: Multiplanar imaging includes non-contrasted T1, T2, FLAIR, and diffusion with ADC map sequences. Additional sequence(s) sensitive toblood products. Images stored on PACS. COMPARISON: None available. FINDINGS: Multiple of the sequences are degraded by motion related artifact. Right frontal and parietal paramedian diffusion restriction with T2/FLAIR hyperintense signal in keeping with acute/recent infarction. Additional diffusion restriction along the right splenium of the corpus callosum and right occipital periventricular white matter in keeping with a additional acute/recent infarctions. The right parietal and medial occipital linear susceptibility signal with T2/FLAIR hyperintensity and T1 hypointense signal could reflect areas ofprior infarctions with blood degradation products. Alternatively underlyingvessel could also have similar appearance. If this is a new finding for thepatient then consider a complete pre and postcontrast MRI of the brain.Additionally, there is asymmetric prominence of the vessels along the paramedian right frontal and parietal lobes (series 11, image [id number]). Attention onfollow-up complete pre and postcontrast MRI brain and CTA head and neck. There are a few small chronic infarctions in the bilateral holt radiata, basal ganglia and left thalamus but advanced for the patient's age.Wallerian degeneration along the right cortical spinal tract down to the level ofthe right midbrain. Request correlation with patient's risk factors.Elsewhere in the brain the ygsrr-whpojep-uzvv-left subcortical and periventricularwhite matter T2/FLAIR hyperintense signal in the bilateral cerebral hemispheres, ttttx-ajtilir-alnh-left. These lesions are nonspecific in appearance andmay be seen with accelerated small vessel ischemic disease, vasculopathies, migraine headache, Lyme disease, and residua from inflammatory ortraumatic insult to the brain. Current distribution is not classic fordemyelination would be included in the differential in the proper clinical scenario. The bilateral globes are symmetric. The imaged paranasal sinuses are predominantly clear. Trace T2 hyperintense in the left mastoid air cells. IMPRESSION: 1. Right cerebral hemisphere multifocal acute/recent infarctions asabove. 2. A few chronic infarctions. 3. The white matter T2/FLAIR hyperintense signal as is nonspecific andcould reflect accelerated chronic microvascular ischemic type change in apatient of this age. Other possibilities as above. 4. Right cerebral hemisphere asymmetric vessels in part could be relatedto the adjacent infarctions. Attention on follow-up complete pre and postcontrast MRI brain and CTA head and neck. The above findings discussed with the patient's nurse VALE Mclain via telephone by pa Dr. Wilder Palma on 11/25/2024 at 3:56 pm central standardtime. THIS IS AN ELECTRONICALLY VERIFIED FINAL REPORT 11/25/2024 4:03 PM - Electronically signed by Devin Palma D.O. AP: KEON Report ID: [id number] Reading Location: [id number] us Sarah Dawson MD IMG MRI PROCEDURES Final Resul t * US Carotids Duplex Bilateral (11/25/2024 2:48 PM CDT) Anatomical Region Laterality Modality Vascular Bilateral Ultrasound 11/25/2024 3:15 PM CDT Narrative 11/25/2024 3:17 PM CDT EXAM DESCRIPTION: US CAROTIDS DUPLEX BILATERAL REASON FOR STUDY: Screening evaluation for carotid stenosis. No provided patient complaints. No provided past medical or surgical history. TECHNIQUE: Vega scale, color Doppler and spectral Doppler imaging were performed. Velocity criteria are extrapolated from diameter as defined by the Society of Radiologists in Ultrasound Consensus Conference. All velocity measurements are in cm/sec. COMPARISON: No prior relevant imaging available at time of interpretation. FINDINGS: Right: Mild intimal thickening and plaque are seen. Distal CCA Peak Systolic Velocity: 55.5 Distal CCA End Diastolic Velocity: 83.1 Peak ICA Systolic Velocity: 103.0 ICA End Diastolic Velocity: 45.7 Peak ICA/CCA Systolic Ratio: 1.9 Right Vertebral Artery: Antegrade direction of flow. Left: Mild intimal thickening and plaque are seen. Distal CCA Peak Systolic Velocity: 79.1 Distal CCA End Diastolic Velocity: 23.6 Peak ICA Systolic Velocity: 94.9 ICA End Diastolic Velocity: 35.3 Peak ICA/CCA Systolic Ratio: 1.0 Left Vertebral Artery: Antegrade direction of flow. IMPRESSION: 1. Velocities correspond to a less than 50 percent diameter stenosis of the right ICA. 2. Velocities correspond to a less than 50 percent diameter stenosis of the left ICA. 3. Antegrade direction of flow of the bilateral vertebral arteries. REFERENCE: Consensus Panel Vega-Scale and Doppler US Criteria for Diagnosis of ICA Stenosis. No stenosis: ICA PSV <125*, 0 percent plaque, ICA/CCA PSV Ratio <2.0, ICA EDV <40*. <50 percent stenosis: ICA PSV <125*, <50 percent plaque, ICA/CCA PSV Ratio <2.0, ICA EDV <40*. 50-69 percent stenosis: ICA PSV 125-230*, >=50 percent plaque, ICA/CCA PSV Ratio 2.0-4.0, ICA EDV 40-100*. >=70 percent but less than near occlusion >230, >=50 percent plaque, ICA/CAA PSV Ratio >4.0, ICA EDV >100*. *cm/sec Plaque estimate (diameter reduction) with vega-scale and color Doppler US. RSNA 2003 THIS IS AN ELECTRONICALLY VERIFIED FINAL REPORT 11/25/2024 3:17 PM - Electronically signed by Cristiano Araujo M.D. HODAN: HODAN Report ID: [id number] Reading Location: [place] [address] Procedure Note Cristiano Araujo MD - 11/25/2024 EXAM DESCRIPTION: US CAROTIDS DUPLEX BILATERAL REASON FOR STUDY: Screening evaluation for carotid stenosis. Noprovided patient complaints. No provided past medical or surgical history. TECHNIQUE: Vega scale, color Doppler and spectral Doppler imaging were performed. Velocity criteria are extrapolated from diameter as defined bythe Society of Radiologists in Ultrasound Consensus Conference. All velocity measurements are in cm/sec. COMPARISON: No prior relevant imaging available at time ofinterpretation. FINDINGS: Right: Mild intimal thickening and plaque are seen. Distal CCA Peak Systolic Velocity: 55.5 Distal CCA End Diastolic Velocity: 83.1 Peak ICA Systolic Velocity: 103.0 ICA End Diastolic Velocity: 45.7 Peak ICA/CCA Systolic Ratio: 1.9 Right Vertebral Artery: Antegrade direction of flow. Left: Mild intimal thickening and plaque are seen. Distal CCA Peak Systolic Velocity: 79.1 Distal CCA End Diastolic Velocity: 23.6 Peak ICA Systolic Velocity: 94.9 ICA End Diastolic Velocity: 35.3 Peak ICA/CCA Systolic Ratio: 1.0 Left Vertebral Artery: Antegrade direction of flow. IMPRESSION: 1. Velocities correspond to a less than 50 percent diameter stenosisof the right ICA. 2. Velocities correspond to a less than 50 percent diameter stenosisof the left ICA. 3. Antegrade direction of flow of the bilateral vertebral arteries. REFERENCE: Consensus Panel Vega-Scale and Doppler US Criteria forDiagnosis of ICA Stenosis. No stenosis: ICA PSV <125*, 0 percent plaque, ICA/CCA PSV Ratio <2.0, ICAEDV <40*. <50 percent stenosis: ICA PSV <125*, <50 percent plaque, ICA/CCA PSV Ratio <2.0, ICA EDV <40*. 50-69 percent stenosis: ICA PSV 125-230*, >=50 percent plaque, ICA/CCA PSV Ratio 2.0-4.0, ICA EDV 40-100*. >=70 percent but less than near occlusion >230, >=50 percent plaque,ICA/CAA PSV Ratio >4.0, ICA EDV >100*. *cm/sec Plaque estimate (diameter reduction) with vega-scale and color DopplerUS. RSNA 2002 THIS IS AN ELECTRONICALLY VERIFIED FINAL REPORT 11/25/2024 3:17 PM - Electronically signed by Cristiano Araujo M.D. HODAN: HODAN Report ID: [id number] Reading Location: [place] [address] Sarah Dawson MD IMG US PROCEDURES Final Result * POCT glucose (11/25/2024 11:56 AM CDT) Glucose, POC 132 70 - 199 mg/dL Blood 11/25/2024 11:5 6 AM CDT 11/25/2024 11:56 AM CDT Sarah Dawson MD LAB POCT ORDERABLES - DEVICE F inal Result [facility]RA [facility] ([place]) [address] [facility] Department [place] [address] * eGFR (11/25/2024 9:28 AM CDT) eGFR >90 >=60 mL/min/1. 73 m2 Comment: Interpretive Data Reference Interval Normal >/= 90 mL/min/1.73m2 Mildly decreased* 60 - 89 mL/min/1.73m2 Mildly to moderately decreased 45 - 59 mL/min/1.73m2 Moderately to severely decreased 30 - 44 mL/min/1.73m2 Severely decreased 15 - 29 mL/min/1.73m2 Kidney Failure < 15 mL/min/1.73m2 *Relative to young adult level Estimated glomerular filtration rate is determined by the 2020 CKD-EPI equation recommended by the National Kidney Foundation (A Unifying Approach to GFR Estimation: Recommendations of the NKF-ASK Task Force on Reassessing the Inclusion of Race in Diagnosing Kidney Disease, TRESSA 2020). The CKD-EPI equation should not be used for patients with unstable renal function and has not been validated in children and those over 70. Current interpretive data was last reviewed 2021. Blood 11/25/2024 9:28 AM CDT 11/25/2024 10:59 AM CDT us Sarah Dawson MD LAB BLOOD ORDERABLES Final Res ult [facility] ([place]) [address] [facility] Department [place] [address] * (ABNORMAL) Comprehensive metabolic panel (11/25/2024 9:28 AM CDT) Sodium 140 135 - 145 mmol/L [facility] ([place]) Potassium, pl 3.5 3.3 - 4.9 mmol/L [facility] ([place]) Chloride 107 97 - 110 mmol/L [facility] ([place]) CO2 22 22 - 32 mmol/L [facility] ([place]) Anion gap 11 2 - 15 mmol/L [facility] ([place]) BUN 10 6 - 25 mg/dL [facility] ([place]) Creatinine 0.75 0.60 - 1.10 mg/dL [facility] ([place]) Glucose 227(H) 70 - 199 mg/dL [facility] ([place]) Comment: Interpretive Data Fasting glucose >/= 126 mg/dl is diagnostic for diabetes. Fasting is defined as no caloric intake for at least 8 hours. Fasting glucose between 100 mg/dl to 125 mg/dl is diagnostic of prediabetes. In a patient with classic symptoms of hyperglycemia or hyperglycemic crisis, a random glucose >/= 200 mg/dl is diagnostic for diabetes. In the absence of unequivocal hyperglycemia, results should be confirmed by repeat testing. The classification and Diagnosis of Diabetes Diabetes Care 2021; 46: S19-S40. Current interpretive data was last revised 2022. Calcium 8.8 8.5 - 10.3 mg/dL [facility] ([place]) Bilirubin, total 0.2 0.1 - 1.2 mg/dL [facility] ([place]) Protein, pl 5.6(L) 6.5 - 8.5 g/dL [facility] ([place]) Albumin 3.4(L) 3.5 - 5.0 g/dL [facility] ([place]) Alk phos 78 40 - 130 Units/L [facility] ([place]) ALT 8 7 - 45 Units/L [facility] ([place]) AST 17 10 - 45 Units/L [facility] ([place]) Blood 11/25/2024 9:28 AM CDT 11/25/2024 9:49 AM CDT Sarah Dawson MD LAB BLOOD ORDERABLES Final Res ult [facility] ([place]) [address] [facility] Department of [employer] [place] [place] [address] * (ABNORMAL) POCT glucose (11/25/2024 7:50 AM CDT) [facility] Glucose, POC 208(H) 70 - 199 mg/dL Blood 11/25/2024 7:50 AM CDT 11/25/2024 7:50 AM CDT Sarah Dawson MD LAB POCT ORDERABLES - DEVICE F inal Result S[facility]RA MITCHELL ([place]) [address] [place] [address] Department of [employer] [place] [place] [address] * Differential, auto (11/25/2024 3:52 AM CDT) Neutrophil abs 2.86 1.50 - 6.50 K/cumm Imm gran abs 0.02 0.00 - 0.10 K/cumm [facility] ([place]) Lymphocyte abs 2.54 0.80 - 3.30 K/cumm [facility] ([place]) Monocyte abs 0.24 0.20 - 0.80 K/cumm [facility] ([place]) Eosinophil abs 0.12 0.00 - 0.50 K/cumm [facility] ([place]) Basophil abs 0.02 0.00 - 0.10 K/cumm [facility] ([place]) Neutrophil pct 49.4 % [facility] ([place]) Comment: Interpretive Data Percent cell count reference ranges are not reported, since discordance with absolute values may lead to misinterpretation of CBC data. Current Interpretive Data was last revised on 2017. Imm gran pct 0.3 % [facility] ([place]) Comment: Interpretive Data Percent cell count reference ranges are not reported, since discordance with absolute values may lead to misinterpretation of CBC data. Current Interpretive Data was last revised on 2017. Lymphocyte pct 43.8 % [facility] ([place]) Comment: Interpretive Data Percent cell count reference ranges are not reported, since discordance with absolute values may lead to misinterpretation of CBC data. Current Interpretive Data was last revised on 2017. Monocyte pct 4.1 % [facility] ([place]) Comment: Interpretive Data Percent cell count reference ranges are not reported, since discordance with absolute values may lead to misinterpretation of CBC data. Current Interpretive Data was last revised on 2017. Eosinophil pct 2.1 % [facility] ([place]) Comment: Interpretive Data Percent cell count reference ranges are not reported, since discordance with absolute values may lead to misinterpretation of CBC data. Current Interpretive Data was last revised on 2017. Basophil pct 0.3 % [facility] ([place]) Comment: Interpretive Data Percent cell count reference ranges are not reported, since discordance with absolute values may lead to misinterpretation of CBC data. Current Interpretive Data was last revised on 2017. Blood 11/25/2024 3:52 AM CDT 11/25/2024 4:28 AM CDT us Rajesh Roman MD LAB BLOOD ORDERABLES Final Resu lt [facility]RA PAULA ([place]) [address] [facility] Department [place] [address] * (ABNORMAL) CBC with auto differential (11/25/2024 3:52 AM CDT) WBC 5.80 3.80 - 9.90 K/cumm Hgb 11.6(L) 11.9 - 15.5 g/dL [facility] ([place]) Hct 36.4 35.6 - 45.5 % [facility] ([place]) Plt 255 150 - 400 K/cumm [facility] ([place]) MPV 10.6 9.1 - 12.3 fL [facility] ([place]) RBC 4.32 3.90 - 5.20 M/cumm [facility] ([place]) MCV 84.3 81.3 - 96.4 fL [facility] ([place]) MCH 26.9(L) 27.1 - 33.3 pg [facility] ([place]) MCHC 31.9(L) 32.3 - 35.7 g/dL [facility] ([place]) RDW CV 13.6 11.1 - 14.9 % [facility] ([place]) RDW SD 42.2 35.7 - 48.1 fL [facility] ([place]) NRBC abs 0.00 0.00 - 0.01 K/cumm [facility] ([place]) Blood 11/25/2024 3:52 AM CDT 11/25/2024 4:28 AM CDT us Rajesh Roman MD LAB BLOOD ORDERABLES Final Resu lt [facility] ([place]) [address] [facility] [place] [facility] [employer] [place] [address] * POCT glucose (11/25/2024 2:35 AM CDT) Glucose, POC 195 70 - 199 mg/dL Blood 11/25/2024 2:35 AM CDT 11/25/2024 2:35 AM CDT us Sarah Dawson MD LAB POCT ORDERABLES - DEVICE F inal Result Performing Organization Address City/[facility]/ZIP Co de Phone Number [facility]CHELL ([place]) 1 [facility] of [employer] [place] [address] * POCT glucose (11/24/2024 8:29 PM CDT) Glucose, POC 168 70 - 199 mg/dL Blood 11/24/2024 8:29 PM CDT 11/24/2024 8:29 PM CDT Sarah Dawson MD LAB POCT ORDERABLES - DEVICE F inal Result Performing Organization Address [facility] Co de Phone Number [facility] ([place]) 1 [facility] [employer] [place] [address] * POCT glucose (11/24/2024 5:07 PM CDT) Glucose, POC 140 70 - 199 mg/dL Blood 11/24/2024 5:07 PM CDT 11/24/2024 5:07 PM CDT Sarah Dawson MD LAB POCT ORDERABLES - DEVICE F inal Result Performing Organization Address [facility] de Phone Number [facility] ([place]) 1 [facility] [employer] [place] [address] * (ABNORMAL) POCT glucose (11/24/2024 12:17 PM CDT) Glucose, POC 221(H) 70 - 199 mg/dL Blood 11/24/2024 12:1 7 PM CDT 11/24/2024 12:17 PM CDT Sarah Dawson MD LAB POCT ORDERABLES - DEVICE F inal Result Performing Organization Address [facility] Co de Phone Number [facility] ([place]) 1 [facility] [employer] [place] [address] * TRANSTHORACIC ECHO (TTE) LIMITED/FOLLOW UP WO DOPPLER/CF WO CONTRAST (11/24/2024 8:00 AM CDT) Estimated EF 60-70 % CONS SCIMAGE EF Mod BP 57 % CONS SCIMAGE Anatomical Region Laterality Modality Ultrasound 11/24/2024 8:02 AM CDT Narrative 11/24/2024 10:10 AM CDT [address] [place] [address] Limited Echocardiogram Report Patient Name: MIRANDA JOHNSON : 1980 Study Date: 11/24/2024 8:02:28 AM Sex: F Tech: Location: [id number] Ref Provider: RAJESH ROMAN Height(Cm): BSA: Weight(Kg): Quality: Adequate PROCEDURES: Echocardiographic Report: Limited transthoracic echocardiogram with 2D and M-Mode. INDICATIONS: Chest Pain. MEASUREMENTS: 2D/MM Value Range EF Mod BP 57 % [ 54 - 74 ] Estimated EF 60-70 % 2D/MM Value Range - FINDINGS: Left Ventricle: Normal left ventricular systolic function with no focal wall motion abnormalities. Normal left ventricular size. Ejection fraction is measured at 57 %. Ejection Fraction is estimated to be 60-70 %. Pericardium: Normal pericardium with no significant pericardial effusion. CONCLUSIONS: Normal left ventricular systolic function with no focal wall motion abnormalities. Normal left ventricular size. Ejection fraction is measured at 57 %. Ejection Fraction is estimated to be 60-70 %. Normal pericardium with no significant pericardial effusion. This is a limited echocardiographic study. Electronically Signed By: Neida Justin MD 11/24/2024 10:09:55 AM CDT Procedure Note Neida Justin MD - 11/24/2024 [place] [address] [place] [address] Limited Echocardiogram Report Patient Name: MIRANDA JOHNSON : 1980 Study Date: 11/24/2024 8:02:28 AM Sex: F Tech: Location: [id number] Ref Provider: RAJESH ROMAN Height(Cm): BSA: Weight(Kg): Quality: Adequate PROCEDURES: Echocardiographic Report: Limited transthoracic echocardiogram with 2D and M-Mode. INDICATIONS: Chest Pain. MEASUREMENTS: 2D/MM Value Range EF Mod BP 57 % [ 54 - 74 ] Estimated EF 60-70 % 2D/MM Value Range - FINDINGS: Left Ventricle: Normal left ventricular systolic function with no focal wall motionabnormalities. Normal left ventricular size. Ejection fraction is measured at 57 %. EjectionFraction is estimated to be 60-70 %. Pericardium: Normal pericardium with no significant pericardial effusion. CONCLUSIONS: Normal left ventricular systolic function with no focal wall motionabnormalities. Normal left ventricular size. Ejection fraction is measured at 57 %. EjectionFraction is estimated to be 60-70 %. Normal pericardium with no significant pericardial effusion. This is a limited echocardiographic study. Electronically Signed By: Neida Justin MD 11/24/2024 10:09:55 AM CDT Rajesh Roman MD CV ECHO PROCEDURES Final Result * (ABNORMAL) POCT glucose (11/24/2024 7:53 AM CDT) Glucose, POC 210(H) 70 - 199 mg/dL Blood 11/24/2024 7:53 AM CDT 11/24/2024 7:53 AM CDT Sarah Dawson MD LAB POCT ORDERABLES - DEVICE F inal Result Performing Organization Address City/[facility]/ZIP Co de Phone Number [facility]RA MITCHELL ([place]) 1 [facility] Department of [employer] [place] [place] [address] * (ABNORMAL) POCT glucose (11/24/2024 2:36 AM CDT) Pathologist [facility] Glucose, POC 284(H) 70 - 199 mg/dL Blood 11/24/2024 2:36 AM CDT 11/24/2024 2:36 AM CDT Rajesh Roman MD LAB POCT ORDERABLES - DEVICE Fi nal Result Performing Organization Address [facility] Co de Phone Number S[facility]RA MITCHELL ([place]) 1 [place] [address] * Troponin T high-sensitivity 6-hour (11/24/2024 12:41 AM CDT) [facility] Trop T hs 6 <=14 ng/L [facility] ([place]) Comment: Interpretive Data For further hscTnT resources including the diagnostic algorithm and an aid in interpretation, copy and paste this link: https://nrl.testcatalog.org/show/hsTrop Current Interpretive Data last revised 2020. Trop T hs delta 0 ng/L [facility] ([place]) Trop T hs interp Insignificant [facility] ([place]) Blood 11/24/2024 12:4 1 AM CDT 11/24/2024 12:47 AM CDT Speedy Felix MD LAB BLOOD ORDERABLES Final R esult Performing Organization Address [facility]/ZIP Co de Phone Number [facility] MITCHELL ([place]) [address] [facility] Department [place] [address] * eGFR (11/24/2024 12:41 AM CDT) [facility] eGFR >90 >=60 mL/min/1. 73 m2 Comment: Interpretive Data Reference Interval Normal >/= 90 mL/min/1.73m2 Mildly decreased* 60 - 89 mL/min/1.73m2 Mildly to moderately decreased 45 - 59 mL/min/1.73m2 Moderately to severely decreased 30 - 44 mL/min/1.73m2 Severely decreased 15 - 29 mL/min/1.73m2 Kidney Failure < 15 mL/min/1.73m2 *Relative to young adult level Estimated glomerular filtration rate is determined by the 2020 CKD-EPI equation recommended by the National Kidney Foundation (A Unifying Approach to GFR Estimation: Recommendations of the NKF-ASK Task Force on Reassessing the Inclusion of Race in Diagnosing Kidney Disease, JASN 2020). The CKD-EPI equation should not be used for patients with unstable renal function and has not been validated in children and those over 70. Current interpretive data was last reviewed 2021. Blood 11/24/2024 12:4 1 AM CDT 11/24/2024 12:48 AM CDT us Rajesh Roman MD LAB BLOOD ORDERABLES Final Resu lt [facility]RA [facility] ([place]) 1 [facility] Department [place] [address] * Differential, auto (11/24/2024 12:41 AM CDT) Pathologist [facility] Neutrophil abs 5.66 1.50 - 6.50 K/cumm Imm gran abs 0.02 0.00 - 0.10 K/cumm [facility] ([place]) Lymphocyte abs 2.15 0.80 - 3.30 K/cumm [facility] ([place]) Monocyte abs 0.36 0.20 - 0.80 K/cumm [facility] ([place]) Eosinophil abs 0.07 0.00 - 0.50 K/cumm [facility] ([place]) Basophil abs 0.03 0.00 - 0.10 K/cumm [facility] ([place]) Neutrophil pct 68.4 % [facility] ([place]) Comment: Interpretive Data Percent cell count reference ranges are not reported, since discordance with absolute values may lead to misinterpretation of CBC data. Current Interpretive Data was last revised on 2017. Imm gran pct 0.2 % [facility] ([place]) Comment: Interpretive Data Percent cell count reference ranges are not reported, since discordance with absolute values may lead to misinterpretation of CBC data. Current Interpretive Data was last revised on 2017. Lymphocyte pct 25.9 % [facility] ([place]) Comment: Interpretive Data Percent cell count reference ranges are not reported, since discordance with absolute values may lead to misinterpretation of CBC data. Current Interpretive Data was last revised on 2017. Monocyte pct 4.3 % [facility] ([place]) Comment: Interpretive Data Percent cell count reference ranges are not reported, since discordance with absolute values may lead to misinterpretation of CBC data. Current Interpretive Data was last revised on 2017. Eosinophil pct 0.8 % [facility] ([place]) Comment: Interpretive Data Percent cell count reference ranges are not reported, since discordance with absolute values may lead to misinterpretation of CBC data. Current Interpretive Data was last revised on 2017. Basophil pct 0.4 % [facility] ([place]) Comment: Interpretive Data Percent cell count reference ranges are not reported, since discordance with absolute values may lead to misinterpretation of CBC data. Current Interpretive Data was last revised on 2017. Blood 11/24/2024 12:4 1 AM CDT 11/24/2024 12:48 AM CDT us Rajesh Roman MD LAB BLOOD ORDERABLES Final Resu lt [facility] MITCHELL ([place]) 1 [facility] Department of Laboratories [place], [place] [id number] * (ABNORMAL) CBC with auto differential (11/24/2024 12:41 AM CDT) WBC 8.29 3.80 - 9.90 K/cumm Hgb 11.7(L) 11.9 - 15.5 g/dL [facility] ([place]) Hct 36.0 35.6 - 45.5 % [facility] ([place]) Plt 290 150 - 400 K/cumm [facility] ([place]) MPV 10.8 9.1 - 12.3 fL [facility] ([place]) RBC 4.33 3.90 - 5.20 M/cumm [facility] ([place]) MCV 83.1 81.3 - 96.4 fL [facility] ([place]) MCH 27.0(L) 27.1 - 33.3 pg [facility] ([place]) MCHC 32.5 32.3 - 35.7 g/dL [facility] ([place]) RDW CV 13.5 11.1 - 14.9 % [facility] ([place]) RDW SD 41.1 35.7 - 48.1 fL [facility] ([place]) NRBC abs 0.00 0.00 - 0.01 K/cumm [facility] ([place]) Blood 11/24/2024 12:4 1 AM CDT 11/24/2024 12:48 AM CDT us Rajesh Roman MD LAB BLOOD ORDERABLES Final Resu lt [facility] ([place]) 1 [facility] [place] [address] * (ABNORMAL) Comprehensive metabolic panel (11/24/2024 12:41 AM CDT) Sodium 140 135 - 145 mmol/L [facility] ([place]) Potassium, pl 3.4 3.3 - 4.9 mmol/L [facility] ([place]) Chloride 106 97 - 110 mmol/L [facility] ([place]) CO2 17(L) 22 - 32 mmol/L [facility] ([place]) Anion gap 17(H) 2 - 15 mmol/L [facility] ([place]) BUN 8 6 - 25 mg/dL [facility] ([place]) Creatinine 0.77 0.60 - 1.10 mg/dL [facility] ([place]) Glucose 278(H) 70 - 199 mg/dL [facility] ([place]) Comment: Interpretive Data Fasting glucose >/= 126 mg/dl is diagnostic for diabetes. Fasting is defined as no caloric intake for at least 8 hours. Fasting glucose between 100 mg/dl to 125 mg/dl is diagnostic of prediabetes. In a patient with classic symptoms of hyperglycemia or hyperglycemic crisis, a random glucose >/= 200 mg/dl is diagnostic for diabetes. In the absence of unequivocal hyperglycemia, results should be confirmed by repeat testing. The classification and Diagnosis of Diabetes Diabetes Care 2021; 46: S19-S40. Current interpretive data was last revised 2022. Calcium 9.2 8.5 - 10.3 mg/dL [facility] ([place]) Bilirubin, total 0.2 0.1 - 1.2 mg/dL [facility] ([place]) Protein, pl 6.2(L) 6.5 - 8.5 g/dL [facility] ([place]) Albumin 3.7 3.5 - 5.0 g/dL [facility] ([place]) Alk phos 95 40 - 130 Units/L [facility] ([place]) ALT 10 7 - 45 Units/L [facility] ([place]) AST 14 10 - 45 Units/L [facility] ([place]) Blood 11/24/2024 12:4 1 AM CDT 11/24/2024 12:48 AM CDT us Rajesh Roman MD LAB BLOOD ORDERABLES Final Resu lt S[facility]RA [facility] ([place]) 1 [facility] [place] [address] * XR Tibia Fibula Left 2 Views (11/23/2024 11:51 PM CDT) Anatomical Region Laterality Modality Lower Extremities, Lower Leg Left Com puted Radiography 11/24/2024 12:3 2 AM CDT Narrative 11/24/2024 12:36 AM CDT EXAM DESCRIPTION: XR TIBIA FIBULA LEFT 2 VIEWS REASON FOR STUDY: hx of minimal displace fracture Patient reported that she has left hip/lower issue for since her hip replacement about 15 years ago. She was having left hip pain, can't lift leg the whole way and recurrent falls on that leg. Last fall was 2 days ago and fall on her left knee. Best images obtained due to pt cooperation. Tech had to hold pts leg still during exam TECHNIQUE: 4 radiographic view(s) of the left tibia and fibula . COMPARISON: None FINDINGS: BONES/JOINTS: There is no acute fracture, malalignment or osseous abnormality. The joint spaces are normal. SOFT TISSUES: Within normal limits. IMPRESSION: No acute osseous abnormality. THIS IS AN ELECTRONICALLY VERIFIED FINAL REPORT 11/24/2024 12:36 AM - Electronically signed by Florin Alfredo M.D. KT: TOM Report ID: [id number] Reading Location: [id number] Procedure Note Florin Alfredo MD - 11/24/2024 EXAM DESCRIPTION: XR TIBIA FIBULA LEFT 2 VIEWS REASON FOR STUDY: hx of minimal displace fracture Patient reported that she has left hip/lower issue for since her hip replacement about 15 years ago. She was having left hip pain, can't liftleg the whole way and recurrent falls on that leg. Last fall was 2 days agoand fall on her left knee. Best images obtained due to pt cooperation. Techhad to hold pts leg still during exam TECHNIQUE: 4 radiographic view(s) of the left tibia and fibula . COMPARISON: None FINDINGS: BONES/JOINTS: There is no acute fracture, malalignment or osseousabnormality. The joint spaces are normal. SOFT TISSUES: Within normal limits. IMPRESSION: No acute osseous abnormality. THIS IS AN ELECTRONICALLY VERIFIED FINAL REPORT 11/24/2024 12:36 AM - Electronically signed by Florin Alfredo M.D. KT: TOM Report ID: [id number] Reading Location: [id number] us Rajesh Roman MD IMG XR PROCEDURES Final Result * XR Hip Left 2 or 3 Views W Pelvis (11/23/2024 11:50 PM CDT) Anatomical Region Laterality Modality Lower Extremities, Hip, Pelvis Left C omputed Radiography 11/24/2024 12:3 6 AM CDT Narrative 11/24/2024 12:39 AM CDT EXAM DESCRIPTION: XR HIP LEFT 2 OR 3 VIEWS W PELVIS REASON FOR STUDY: pain/rotator cup Patient reported that she has left hip/lower issue for since her hip replacement about 15 years ago. She was having left hip pain, can't lift leg the whole way and recurrent falls on that leg. Last fall was 2 days ago and fall on her left knee. Best images obtained due to pt cooperation. Tech had to hold pts leg still during exam TECHNIQUE: 3 radiographic view(s) of the pelvis and left hip . COMPARISON: 02/23/2023 FINDINGS: Three views of the pelvis and left hip demonstrate no fracture. Left total hip arthroplasty is unchanged in position compared with 02/23/2023. 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 There is vertical orientation of the acetabular component of the prosthesis with uncovering of the superior aspect of the femoral component, unchanged. 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 No evidence of fracture. Degenerative axial narrowing and superior narrowing of the right hip. IMPRESSION: Left total hip arthroplasty is unchanged in position compared with 02/23/2023. No evidence of fracture. THIS IS AN ELECTRONICALLY VERIFIED FINAL REPORT 11/24/2024 12:39 AM - Electronically signed by Florin Alfredo M.D. KT: TOM Report ID: [id number] Reading Location: [id number] Procedure Note Florin Alfredo MD - 11/24/2024 EXAM DESCRIPTION: XR HIP LEFT 2 OR 3 VIEWS W PELVIS REASON FOR STUDY: pain/rotator cup Patient reported that she has left hip/lower issue for since her hip replacement about 15 years ago. She was having left hip pain, can't liftleg the whole way and recurrent falls on that leg. Last fall was 2 days agoand fall on her left knee. Best images obtained due to pt cooperation. Techhad to hold pts leg still during exam TECHNIQUE: 3 radiographic view(s) of the pelvis and left hip . COMPARISON: 02/23/2023 FINDINGS: Three views of the pelvis and left hip demonstrate no fracture. Lefttotal hip arthroplasty is unchanged in position compared with 02/23/2023. 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 There is vertical orientation ofthe acetabular component of the prosthesis with uncovering of the superioraspect of the femoral component, unchanged. Degenerative cyst formationinvolving the roof of the left acetabulum. No evidence of fracture. Degenerativeaxial narrowing and superior narrowing of the right hip. IMPRESSION: Left total hip arthroplasty is unchanged in position compared with02/23/2023. No evidence of fracture. THIS IS AN ELECTRONICALLY VERIFIED FINAL REPORT 11/24/2024 12:39 AM - Electronically signed by Florin Alfredo M.D. KT: TOM Report ID: [id number] Reading Location: [place] [id number] us Rajesh Roman MD IMG XR PROCEDURES Final Result * XR Knee Left 1 or 2 Views (11/23/2024 11:50 PM CDT) Anatomical Region Laterality Modality Lower Extremities, Knee Left Computed Radiography 11/24/2024 12:3 9 AM CDT Narrative 11/24/2024 12:39 AM CDT EXAM DESCRIPTION: XR KNEE LEFT 1 OR 2 VIEWS REASON FOR STUDY: fall on knee/pain Patient reported that she has left hip/lower issue for since her hip replacement about 15 years ago. She was having left hip pain, can't lift leg the whole way and recurrent falls on that leg. Last fall was 2 days ago and fall on her left knee. Best images obtained due to pt cooperation. Tech had to hold pts leg still during exam TECHNIQUE: 2 radiographic view(s) of the left knee . COMPARISON: None FINDINGS: BONES/JOINTS: There is no acute fracture, malalignment or osseous abnormality. Degenerative narrowing of the medial compartment of the knee and the patellofemoral joint. Small osteophytes are seen along the posterior patella. SOFT TISSUES: Within normal limits. IMPRESSION: Degenerative changes left knee. No acute abnormality. THIS IS AN ELECTRONICALLY VERIFIED FINAL REPORT 11/24/2024 12:39 AM - Electronically signed by Florin Alfredo M.D. KT: TOM Report ID: [id number] Reading Location: [id number] Procedure Note Florin Alfredo MD - 11/24/2024 EXAM DESCRIPTION: XR KNEE LEFT 1 OR 2 VIEWS REASON FOR STUDY: fall on knee/pain Patient reported that she has left hip/lower issue for since her hip replacement about 15 years ago. She was having left hip pain, can't liftleg the whole way and recurrent falls on that leg. Last fall was 2 days agoand fall on her left knee. Best images obtained due to pt cooperation. Techhad to hold pts leg still during exam TECHNIQUE: 2 radiographic view(s) of the left knee . COMPARISON: None FINDINGS: BONES/JOINTS: There is no acute fracture, malalignment or osseousabnormality. Degenerative narrowing of the medial compartment of the knee and the patellofemoral joint. Small osteophytes are seen along the posteriorpatella. SOFT TISSUES: Within normal limits. IMPRESSION: Degenerative changes left knee. No acute abnormality. THIS IS AN ELECTRONICALLY VERIFIED FINAL REPORT 11/24/2024 12:39 AM - Electronically signed by Florin Alfredo M.D. KT: TOM Report ID: [id number] Reading Location: [id number] Rajesh Roman MD IMG XR PROCEDURES Final Result * Troponin T high-sensitivity 4-hour (11/23/2024 10:01 PM CDT) Trop T hs 7 <=14 ng/L [facility] ([place]) Comment: Interpretive Data For further hscTnT resources including the diagnostic algorithm and an aid in interpretation, copy and paste this link: https://nrl.testcatalog.org/show/hsTrop Current Interpretive Data last revised 2020. Trop T hs delta 1 ng/L [facility] ([place]) Trop T hs interp Insignificant [facility] ([place]) Blood 11/23/2024 10:0 1 PM CDT 11/23/2024 10:06 PM CDT Speedy Felix MD LAB BLOOD ORDERABLES Final R esult SAYRA PAULA ([place]) 1 [facility] Department [place] [address] * PA CRITICAL CARE ILL/INJURED PATIENT INIT 30-74 MIN (11/23/2024 9:16 PM CDT) Narrative Speedy Felix MD - 11/23/2024 9:16 PM CDT Speedy Felix MD 11/23/2024 9:16 PM Critical Care Performed by: Speedy Felix MD Authorized by: Speedy Felix MD Critical care provider statement: As reflected in the history, physical exam, orders, notes, and/or MDM, I was personally present while the patient was critically ill and provided critical care services for 60 minutes, excluding time involved in separately billable procedures. Critical care was necessary to treat or prevent imminent or life-threatening deterioration of the following condition(s): hypertensive crisis Speedy Felix MD IN CLINIC/BEDSIDE ORDERABLES Final Result * Troponin T high-sensitivity 2-hour (11/23/2024 8:49 PM CDT) Trop T hs See Comment <=14 Comment: cannot perform test due to hemolysis Interpretive Data For further hscTnT resources including the diagnostic algorithm and an aid in interpretation, copy and paste this link: https://nrl.testcatalog.org/show/hsTrop Current Interpretive Data last revised 2020. Trop T hs interp See Comment C PEDRO MITCHELL ([place]) Blood 11/23/2024 8:49 PM CDT 11/23/2024 8:55 PM CDT Speedy Felix MD LAB BLOOD ORDERABLES Final R esult SAYRA MITCHELL ([place]) 1 [facility] Department [place] [address] * POCT glucose (11/23/2024 8:45 PM CDT) Glucose, POC 182 70 - 199 mg/dL Blood 11/23/2024 8:45 PM CDT 11/23/2024 8:45 PM CDT Speedy Felix MD LAB POCT ORDERABLES - DEVICE Final Result Performing Organization Address City/[facility] Co de Phone Number SAYRA MITCHELL ([place]) 1 [facility] Department of [employer] [place] [address] * CT Chest PE (CTA) W Contrast (11/23/2024 7:57 PM CDT) Anatomical Region Laterality Modality Body N/A Computed Tomogra phy 11/23/2024 8:25 PM CDT Narrative 11/23/2024 8:36 PM CDT EXAM DESCRIPTION: CT CHEST PE (CTA) W CONTRAST REASON FOR STUDY: Pulmonary embolism (PE) suspected, low to intermediate prob, positive D-dimer Currently presenting hypertensive urgency, tachycardia, chest pain and 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 Reconstructed coronal and sagittal MPR images reviewed. All images stored on PACS. 3D MIP images rendered on scanning unit and reviewed at time of interpretation. Automated exposure control was used as a dose optimization technique for this examination. CONTRAST TYPE/DOSE: 100mL of IOVERSOL 350 MG IODINE/ML INTRAVENOUS SYRINGE injected via intravenous COMPARISON: None FINDINGS: VASCULATURE: No identified pulmonary emboli. LUNGS: No nodules or masses. No pneumonia. PLEURA: No effusion. No pneumothorax. MEDIASTINUM/NADIRA: No identified masses or abnormal nodes. HEART: Heart size is normal with no pericardial effusion. AXILLA: No adenopathy. CHEST WALL: No masses. No subcutaneous air. HARDWARE/LINES/TUBES: None. UPPER ABDOMEN: No significant abnormality. MUSCULOSKELETAL: No significant abnormality. OTHER: No significant abnormality. IMPRESSION: No evidence of pulmonary embolism. Normal CT of the chest. THIS IS AN ELECTRONICALLY VERIFIED FINAL REPORT 11/23/2024 8:36 PM - Electronically signed by Florin Alfredo M.D. 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 Reconstructed coronal and sagittal MPR images reviewed. All images storedon PACS. 3D MIP images rendered on scanning unit and reviewed at time of interpretation. Automated exposure control was used as a doseoptimization technique for this examination. CONTRAST TYPE/DOSE: 100mL of IOVERSOL 350 MG IODINE/ML INTRAVENOUSSYRINGE injected via intravenous COMPARISON: None FINDINGS: VASCULATURE: No identified pulmonary emboli. LUNGS: No nodules or masses. No pneumonia. PLEURA: No effusion. No pneumothorax. MEDIASTINUM/NADIRA: No identified masses or abnormal nodes. HEART: Heart size is normal with no pericardial effusion. AXILLA: No adenopathy. CHEST WALL: No masses. No subcutaneous air. HARDWARE/LINES/TUBES: None. UPPER ABDOMEN: No significant abnormality. MUSCULOSKELETAL: No significant abnormality. OTHER: No significant abnormality. IMPRESSION: No evidence of pulmonary embolism. Normal CT of the chest. THIS IS AN ELECTRONICALLY VERIFIED FINAL REPORT 11/23/2024 8:36 PM - Electronically signed by Florin Alfredo M.D. KT: TOM Report ID: [id number] Reading Location: [id number] Ana Haines MD [facility] CT PROCEDURES Final Result * (ABNORMAL) POCT glucose (11/23/2024 7:09 PM CDT) Glucose, POC 232(H) 70 - 199 mg/dL Blood 11/23/2024 7:09 PM CDT 11/23/2024 7:09 PM CDT Speedy Felix MD LAB POCT ORDERABLES - DEVICE Final Result SAYRA MITCHELL ([place]) 1 [facility] Department [place] [address] * XR Chest 1 Vw Portable (11/23/2024 6:12 PM CDT) Anatomical Region Laterality Modality Body, Chest N/A Computed Radiogr aphy 11/23/2024 6:22 PM CDT Narrative 11/23/2024 6:27 PM CDT EXAM DESCRIPTION: XR CHEST 1 VIEW REASON FOR STUDY: general weakness TECHNIQUE: Frontal radiographic view(s) of the chest. COMPARISON: None. FINDINGS: LUNGS: No focal opacity, pleural effusion, or pneumothorax. HEART/MEDIASTINUM: Cardiac silhouette normal in size. Mediastinal and hilar contours appear normal. LINES/TUBES: None. BONES: Right grade 3 right AC joint separation presumably old. IMPRESSION: 1. No acute cardiopulmonary abnormality. 2. Presumably old right grade 3 AC joint separation. THIS IS AN ELECTRONICALLY VERIFIED FINAL REPORT 11/23/2024 6:27 PM - Electronically signed by August Zuniga M.D. CH: WU Report ID: [id number] Reading Location: [id number] Procedure Note August Zuniga MD - 11/23/2024 EXAM DESCRIPTION: XR CHEST 1 VIEW REASON FOR STUDY: general weakness TECHNIQUE: Frontal radiographic view(s) of the chest. COMPARISON: None. FINDINGS: LUNGS: No focal opacity, pleural effusion, or pneumothorax. HEART/MEDIASTINUM: Cardiac silhouette normal in size. Mediastinal andhilar contours appear normal. LINES/TUBES: None. BONES: Right grade 3 right AC joint separation presumably old. IMPRESSION: 1. No acute cardiopulmonary abnormality. 2. Presumably old right grade 3 AC joint separation. THIS IS AN ELECTRONICALLY VERIFIED FINAL REPORT 11/23/2024 6:27 PM - Electronically signed by August Zuniga M.D. CH: Report ID: [id number] Reading Location: [id number] Speedy Felix MD IMG XR PROCEDURES Final Resu lt * ECG 12 lead (11/23/2024 6:09 PM CDT) 11/23/2024 6:09 PM CDT Narrative [facility] - 11/24/2024 7:08 AM CDT Vent Rate: 114 bpm RR Interval: 525 msec PA Interval: 132 msec QRS Duration: 96 msec QT Interval: 344 msec QTC Interval: 411 msec P-R-T [place]: 54 - -3 - 59 degrees IMPRESSION: SINUS TACHYCARDIA Nonspecific ST DEPRESSION [0.05+ mV ST DEPRESSION] ABNORMAL ECG Electronically Signed By: Ciro Hagan MD Speedy Felix MD ECG ORDERABLES Final Result [facility] * Troponin T high-sensitivity series (baseline, 2hr, 4hr, 6hr) (11/23/2024 6:03 PM CDT) Trop T hs 6 <=14 ng/L SAYRA MITCHELL ([place]) Comment: Interpretive Data For further hscTnT resources including the diagnostic algorithm and an aid in interpretation, copy and paste this link: https://nrl.testcatalog.org/show/hsTrop Current Interpretive Data last revised 2020. Blood 11/23/2024 6:03 PM CDT 11/23/2024 6:08 PM CDT Speedy Felix MD LAB BLOOD ORDERABLES Final R esult Performing Organization Address City/[facility]/ZIP Co de Phone Number SAYRA MITCHELL [place]) 1 [facility] of [employer] [place] [address] * Sepsis Lactate w/ Reflex (11/23/2024 6:03 PM CDT) Sepsis Lactate 1.7 0.7 - 2.0 mmol/L Blood 11/23/2024 6:03 PM CDT 11/23/2024 6:08 PM CDT Speedy Felix MD LAB BLOOD ORDERABLES Final R esult Performing Organization Address [facility] Co de Phone Number SAYRA MITCHELL ([place]) 1 [facility] [place] [address] * eGFR (11/23/2024 6:03 PM CDT) eGFR 90 >=60 mL/min/1. 73 m2 Comment: Interpretive Data Reference Interval Normal >/= 90 mL/min/1.73m2 Mildly decreased* 60 - 89 mL/min/1.73m2 Mildly to moderately decreased 45 - 59 mL/min/1.73m2 Moderately to severely decreased 30 - 44 mL/min/1.73m2 Severely decreased 15 - 29 mL/min/1.73m2 Kidney Failure < 15 mL/min/1.73m2 *Relative to young adult level Estimated glomerular filtration rate is determined by the 2020 CKD-EPI equation recommended by the National Kidney Foundation (A Unifying Approach to GFR Estimation: Recommendations of the NKF-ASK Task Force on Reassessing the Inclusion of Race in Diagnosing Kidney Disease, JASN 2020). The CKD-EPI equation should not be used for patients with unstable renal function and has not been validated in children and those over 70. Current interpretive data was last reviewed 2021. Blood 11/23/2024 6:03 PM CDT 11/23/2024 6:08 PM CDT Speedy Felix MD LAB BLOOD ORDERABLES Final R esult SAYAR MITCHELL ([place]) 1 [facility] Department [place] [address] * (ABNORMAL) Differential, auto (11/23/2024 6:03 PM CDT) Neutrophil abs 6.57(H) 1.50 - 6.50 K/cumm Imm gran abs 0.02 0.00 - 0.10 K/cumm [facility] ([place]) Lymphocyte abs 1.82 0.80 - 3.30 K/cumm [facility] ([place]) Monocyte abs 0.28 0.20 - 0.80 K/cumm [facility] ([place]) Eosinophil abs 0.02 0.00 - 0.50 K/cumm [facility] ([place]) Basophil abs 0.04 0.00 - 0.10 K/cumm [facility] ([place]) Neutrophil pct 75.1 % [facility] ([place]) Comment: Interpretive Data Percent cell count reference ranges are not reported, since discordance with absolute values may lead to misinterpretation of CBC data. Current Interpretive Data was last revised on 2017. Imm gran pct 0.2 % [facility] ([place]) Comment: Interpretive Data Percent cell count reference ranges are not reported, since discordance with absolute values may lead to misinterpretation of CBC data. Current Interpretive Data was last revised on 2017. Lymphocyte pct 20.8 % [facility] ([place]) Comment: Interpretive Data Percent cell count reference ranges are not reported, since discordance with absolute values may lead to misinterpretation of CBC data. Current Interpretive Data was last revised on 2017. Monocyte pct 3.2 % [facility] ([place]) Comment: Interpretive Data Percent cell count reference ranges are not reported, since discordance with absolute values may lead to misinterpretation of CBC data. Current Interpretive Data was last revised on 2017. Eosinophil pct 0.2 % [facility] ([place]) Comment: Interpretive Data Percent cell count reference ranges are not reported, since discordance with absolute values may lead to misinterpretation of CBC data. Current Interpretive Data was last revised on 2017. Basophil pct 0.5 % [facility] ([place]) Comment: Interpretive Data Percent cell count reference ranges are not reported, since discordance with absolute values may lead to misinterpretation of CBC data. Current Interpretive Data was last revised on 2017. Blood 11/23/2024 6:03 PM CDT 11/23/2024 6:20 PM CDT Speedy Felix MD LAB BLOOD ORDERABLES Final R esult SAYRA MITCHELL ([place]) 1 [facility] Department [place] [address] * Pro B-type natriuretic peptide (11/23/2024 6:03 PM CDT) NT-proBNP 258 <=300 pg/mL SAYRA MITCHELL ([place]) Comment: Interpretive Comments: A. Dyspnea in Acute Care Setting All Ages: < 300 pg/ml, acute heart failure unlikely. < 50 yrs: 300 - 450 pg/ml, further investigation warranted. > 450 pg/ml, acute heart failure likely. 50 - 74 yrs: 300 - 900 pg/ml, further investigation warranted. > 900 pg/ml, acute heart failure likely . > or = 75 yrs: 450 - 1800 pg/ml, further investigation warranted. > 1800 pg/ml, acute heart failure likely. B. Non-acute Setting < 75 yrs < 125 pg/ml, rules out heart failure. > or = 125 pg/ml, further investigation warranted. > or = 75 yrs < 450 pg/ml, rules out heart failure. > or = 450 pg/ml, further investigation warranted. - Knowledge of each individual patient's NT-proBNP range may be more useful than using similar cut-points for every patient. Please note that marked elevations in NT-proBNP levels may be observed in state other than Left Ventricular Congestive Failure, including: acute coronary syndromes, right heart strain/failure (including pulmonary embolism and cor pulmonale), critical illness, renal failure, as well as advanced age. - References: 1. Brett YA et.al. Eur Heart J. 2006:27:330-337. 2. Gordon RW, Aston AM. J. AM Shanice Cardiol: Cardiovasc Imag. 2009;2: 216- 225. Interpretive Data Last Revised Date: 2017. Blood 11/23/2024 6:03 PM CDT 11/23/2024 6:08 PM CDT Speedy Felix MD LAB BLOOD ORDERABLES Final R esult [facility] ([place]) 1 [facility] [place] [address] * (ABNORMAL) Urinalysis reflex to microscopic and culture Urine (11/23/2024 6:03 PM CDT) Color, ur Yellow Yellow Clarity, ur Turbid(A) Clear [facility] ([place]) Specific gravity, ur 1.018 1.003 - 1.030 [facility] ([place]) pH, urine 6.0 [facility] ([place]) Comment: Interpretive Data U rine pH is affected by diet, medications, systemic acid-base disturbances, and renal tubular function. pH may affect urinary stone formation. For example, urine pH below 6.0 may help reduce the tendency for calcium phosphate stones and pH greater than 6.0 may reduce the tendency for uric acid stone formation. Source: [facility] Current Interpretive Data was last revised on 2017 Protein, ur ql 1+(A) Negative [facility] ([place]) Glucose, ur ql 4+(A) Negative [facility] ([place]) Ketones, ur 1+(A) Negative [facility] ([place]) Bilirubin, ur Negative Negative [facility] ([place]) Blood, ur Negative Negative [facility] ([place]) Urobilinogen, ur <2.0 <2.0 mg/dL [facility] ([place]) Nitrite, ur Negative Negative [facility] ([place]) Leukocyte esterase, ur Negative Negative [facility] ([place]) UA reflex comment Reflex to microscopic UA will be performed. [facility] ([place]) Urine 11/23/2024 6:03 PM CDT 11/23/2024 6:20 PM CDT Speedy Felix MD LAB MICROBIOLOGY - GENERAL O RDERABLES Final Result SAYRA MITCHELL ([place]) 1 [facility] [place] [employer] [place] [address] * (ABNORMAL) CBC with auto differential (11/23/2024 6:03 PM CDT) WBC 8.75 3.80 - 9.90 K/cumm Hgb 14.4 11.9 - 15.5 g/dL [facility] ([place]) Hct 43.8 35.6 - 45.5 % [facility] ([place]) Plt 330 150 - 400 K/cumm [facility] ([place]) MPV 10.6 9.1 - 12.3 fL [facility] ([place]) RBC 5.41(H) 3.90 - 5.20 M/cumm [facility] ([place]) MCV 81.0(L) 81.3 - 96.4 fL [facility] ([place]) MCH 26.6(L) 27.1 - 33.3 pg [facility] ([place]) MCHC 32.9 32.3 - 35.7 g/dL [facility] ([place]) RDW CV 13.4 11.1 - 14.9 % [facility] ([place]) RDW SD 39.3 35.7 - 48.1 fL [facility] ([place]) NRBC abs 0.00 0.00 - 0.01 K/cumm [facility] ([place]) Blood 11/23/2024 6:03 PM CDT 11/23/2024 6:20 PM CDT Speedy Felix MD LAB BLOOD ORDERABLES Final R esult SAYRA MITCHELL ([place]) 1 [facility] [place] [employer] [place] [address] * (ABNORMAL) Urinalysis, microscopic only (11/23/2024 6:03 PM CDT) WBC, ur 0-5 0 - 5 /HPF RBC, ur 0-2 0 - 2 /HPF SAYRA [facility] ([place]) Epithelial cells, squamous, ur 6-10(A) 0 - 5 /HPF SAYRA [facility] ([place]) Mucous, ur Present(A) SAYRA [facility] ([place]) Culture Reflex Comment Reflex conditions for urine culture (WBC >10) not met. SAYRA MITCHELL ([place]) Urine 11/23/2024 6:03 PM CDT 11/23/2024 6:20 PM CDT Speedy Felix MD LAB URINE ORDERABLES Final R esult Performing Organization Address City/[facility]/ZIP Co de Phone Number HEATHERJUNG [facility] ([place]) 1 [facility] [place] [place] [address] * (ABNORMAL) D-dimer, quantitative (11/23/2024 6:03 PM CDT) D-Dimer 1,177(H) <=499 ng/mL FEU SAYRA MITCHELL ([place]) Comment: Interpretive data FDA approved the D-dimer, in conjunction with a low or moderate pretest probability score, to exclude venous thromboembolic events (VTE) (PE and DVT) in outpatients when the D-dimer result is < 500 ng/ml FEU. Evidence supports using an age-adjusted D-dimer cut-off for outpatients older than 50 (age x 10) to improve specificity without sacrificing sensitivity. Example: age 68, VTE cut-off 680 ng/ml FEU. References; Schouten HT et al. Brit Med J. 2013;346:f2492. Robert et al. Annals Int Med. 2015;163:701-11. Current interpretive data was last revised on 2019. Blood 11/23/2024 6:03 PM CDT 11/23/2024 6:20 PM CDT Speedy Felix MD LAB BLOOD ORDERABLES Final R esult [facility] ([place] 1 [facility] [place] [address] * Magnesium (11/23/2024 6:03 PM CDT) Pathologist [facility] Magnesium 1.9 1.4 - 2.5 mg/dL [facility] ([place]) Blood 11/23/2024 6:03 PM CDT 11/23/2024 6:08 PM CDT Speedy Felix MD LAB BLOOD ORDERABLES Final R esult Performing Organization Address City/[facility] Co de Phone Number [facility] [address] [facility] [place] [address] * (ABNORMAL) Hemoglobin A1c (11/23/2024 6:03 PM CDT) [facility] Hgb A1C 8.5(H) 4.0 - 5.6 % [facility] ([place] Estimated Average Glucose 197 mg/dL [facility] ([place] Comment: The ADA recommends reporting an estimated Average Glucose (eAG) with all Hemoglobin A1c results using the equation derived from a study of 507 normal and diabetic adults. Minority populations were underrepresented and children were not included. (Diabetes Care 31:2975-2851, 2008). The eAG is not equivalent to a fasting glucose. Testing performed by: [facility], [facility], [place], [address] Blood 11/23/2024 6:03 PM CDT 11/23/2024 8:28 PM CDT Speedy Felix MD LAB BLOOD ORDERABLES Final R esult Performing Organization Address City/[facility] Co de Phone Number [facility] [address] [facility] [place] [address] * (ABNORMAL) Comprehensive metabolic panel (11/23/2024 6:03 PM CDT) [facility] Sodium 138 135 - 145 mmol/L [facility] ([place]) Potassium, pl 3.5 3.3 - 4.9 mmol/L [facility] ([place] Chloride 102 97 - 110 mmol/L [facility] CO2 21(L) 22 - 32 mmol/L [facility] Anion gap 15 2 - 15 mmol/L [facility] BUN 7 6 - 25 mg/dL [facility] Creatinine 0.83 0.60 - 1.10 mg/dL [facility] Glucose 275(H) 70 - 199 mg/dL [facility] ([place] Comment: Interpretive Data Fasting glucose >/= 126 mg/dl is diagnostic for diabetes. Fasting is defined as no caloric intake for at least 8 hours. Fasting glucose between 100 mg/dl to 125 mg/dl is diagnostic of prediabetes. In a patient with classic symptoms of hyperglycemia or hyperglycemic crisis, a random glucose >/= 200 mg/dl is diagnostic for diabetes. In the absence of unequivocal hyperglycemia, results should be confirmed by repeat testing. The classification and Diagnosis of Diabetes Diabetes Care 2021; 46: S19-S40. Current interpretive data was last revised 2022. Calcium 9.8 8.5 - 10.3 mg/dL [facility] Bilirubin, total 0.3 0.1 - 1.2 mg/dL [facility] ([place] Protein, pl 7.3 6.5 - 8.5 g/dL [facility] Albumin 4.2 3.5 - 5.0 g/dL [facility] Alk phos 111 40 - 130 Units/L [facility] ALT 13 7 - 45 Units/L [facility] AST 14 10 - 45 Units/L [facility] Blood 11/23/2024 6:03 PM CDT 11/23/2024 6:08 PM CDT us Speedy Felix MD LAB BLOOD ORDERABLES Final R esult [facility] ([place]) [address] [facility] [place] [address] * (ABNORMAL) Drugs of Abuse Screen, Urine without Confirmation (11/23/2024 5:49 PM CDT) Amphetamine, ur Screen Positive, presumptive (A) CutOff 500ng/mL [facility] ([place] Comment: Interpretive Data - Amphetamines: Samples containing greater than 500 ng/mL d-methamphetamine or other cross-reacting amphetamine compounds are reported as positive. Amphetamine immunoassays are subject to significant false positive rates due to cross-reactivity of non-amphetamine drugs. Confirmatory testing required for definitive results. Current Interpretive Data was last reviewed 2022. Barbiturates, ur Not Detected CutOff 200ng/mL [facility] ([place] Comment: Interpretive Data - Barbiturates: Samples containing greater than 200 ng/mL secobarbital or other cross-reacting barbiturate compounds are reported as positive. False positive and false negative results are possible. Confirmatory testing required for definitive results. Current Interpretive Data was last reviewed 2022. Benzodiazepines, ur Not Detected CutOff 100ng/mL [facility] ([place] Comment: Interpretive Data - Benzodiazepines: Samples containing greater than 100 ng/mL nordiazepam or other cross-reacting compounds are reported as positive. False positive and false negative results are possible. Confirmatory testing required for definitive results. Current Interpretive Data was last reviewed 2022. Cannabinoids, ur Not Detected CutOff 50 ng/mL [facility] ([place] Comment: Interpretive Data - Cannabinoids: Samples containing greater than 50 ng/mL delta-9 THC -COOH or other cross- reacting compounds are reported as positive. False positive and false negative results are possible. Confirmatory testing required for definitive results. Current Interpretive Data was last reviewed 2022. Cocaine, ur Not Detected CutOff 150ng/mL [facility] ([place] Comment: Interpretive Data - Cocaine: Samples containing greater than 150 ng/mL benzoylecgonine or other cross- reacting compounds are reported as positive. False positive and false negative results are possible. Confirmatory testing required for definitive results. Current Interpretive Data was last reviewed 2022. Fentanyl, Ur Not Detected CutOff 5 ng/mL [facility] ([place] Comment: Interpretive Data - Fentanyl: Samples containing greater than 5 ng/mL norfentanyl, fentanyl, or other cross-reacting fentanyl compounds are reported as positive. False positive and false negative results are possible. Confirmatory testing required for definitive results. Current Interpretive Data was last reviewed 2023. Methadone, ur Not Detected CutOff 300ng/mL [facility] ([place] Comment: Interpretive Data - Methadone: Samples containing greater than 300 ng/mL d,l-methadone or other cross-reacting compounds are reported as positive. False positive and false negative results are possible. Confirmatory testing required for definitive results. Current Interpretive Data was last reviewed 2022. Opiates, ur Not Detected CutOff 300ng/mL [facility] ([place] Comment: Interpretive Data - Opiates: Samples containing greater than 300 ng/mL morphine or other cross-reacting compounds are reported as positive. False positive and false negative results are possible. Confirmatory testing required for definitive results. Current Interpretive Data was last reviewed 2022. Oxycodone, ur NOT DETECTED CutOff 100ng/mL [facility] ([place] Comment: Interpretive Data - Oxycodone: Samples containing greater than 100 ng/mL oxycodone or other cross-reacting compounds are reported as positive. False positive and false negative results are possible. Confirmatory testing required for definitive results. Current Interpretive Data was last reviewed 2022. Phencyclidine, ur Not Detected CutOff 25 ng/mL [facility] ([place] Comment: Interpretive Data - Phencyclidine: Samples containing greater than 25 ng/mL phencyclidine or other cross-reacting compounds are reported as positive. False positive and false negative results are possible. Confirmatory testing required for definitive results. Current Interpretive Data was last reviewed 2022. Urine Creatinine 130 mg/dL [facility] ([place]) Comment: Interpretive Data Urine Creatinine: < 10 mg/dL is extremely dilute = or > 10 but < 20 mg/dL is dilute = or > 20 mg/dL is normal Current Interpretive Data was last revised on 2017. Urine 11/23/2024 5:49 PM CDT 11/23/2024 5:58 PM CDT Narrative [facility] ([place]) - 11/23/2024 6:32 PM CDT Drug of Abuse screening is performed by immunoassay for medical purposes only. This is not to be used for Pain Management purposes. us Ana Haines MD LAB URINE ORDERABLES Final Resul t [facility] ([place]) [address] [facility] [place] [address] * Ethanol (11/23/2024 5:49 PM CDT) Ethanol <10 <=10 mg/dL [facility] ([place] Comment: Interpretive Data Legal limit of intoxication > or = 80 mg/dL Levels > or = 400 mg/dL are potentially TOXIC. Current interpretive data was last revised on 2018. Blood 11/23/2024 5:49 PM CDT 11/23/2024 5:58 PM CDT us Ana Haines MD LAB BLOOD ORDERABLES Final Resul t [facility] ([place]) [address] [facility] [place] [address] from Last 3 Months Insurance [facility] Advance Directives For more information, please contact: [phone] * Full Code (Latest Code Status on File) Date Activated Date Inactivated Comments 11/23/2024 9:17 PM 11/30/2024 10:13 PM Care Teams Landscaping And Groundskeeping Laborer Relationship Specialty Start Date End Date No, Physician PCP - General 02/22/23
--- OUTSIDE RECORDS SUMMARY | 2025-01-04 20:30 | XMS_ITS | Clinical Summary ---
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
[2025-01-04 20:48] VITALS: BP 164/70; PULSE 86; RESP 18; TEMP 36.8; O2SAT 97
[2025-01-05] VITALS (7 sets, daily range): BP systolic 150–182; BP diastolic 85–114; PULSE 93–110; RESP 15–18; TEMP 36.3–36.7; O2SAT 97–100; BMI 34.2
--- OUTSIDE RECORDS SUMMARY | 2025-01-05 01:21 | XMS_ITS | Encounter Summary ---
Author Organization [employer] Address 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
--- OUTSIDE RECORDS SUMMARY | 2025-01-05 01:21 | XMS_ITS | Encounter Summary ---
Author Organization [employer] Address 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
--- OUTSIDE RECORDS SUMMARY | 2025-01-05 01:21 | XMS_ITS | Encounter Summary ---
Author Organization [employer] Address 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
--- OUTSIDE RECORDS SUMMARY | 2025-01-05 01:21 | XMS_ITS | Clinical Summary ---
Author Organization [facility] Address [address] [place] [address] Phone Care Team Providers Care Slip Caster Name Role Phone Provider, None Primary Care [...] age to complete this topic Care Teams Slip Caster Relationship Specialty Start Date End Date Provider, None [place] PCP - General 06/08/12
--- OUTSIDE RECORDS SUMMARY | 2025-01-05 01:21 | XMS_ITS | Encounter Summary ---
Author Organization [employer] Address 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
--- OUTSIDE RECORDS SUMMARY | 2025-01-05 01:21 | XMS_ITS | Clinical Summary ---
Author Organization [facility] Address [address] [place] [address] Care Team Providers Care Rn Cardiology Name Role Phone No, Physician Primary Care Provider [phone] Allergies Active Allergy Reactions Criticality Noted Date [...] - 11/30/2024 11:59 PM CDT Hospital Encounter [facility] BILLING Sarah Daswon MD Discharge Disposition: Discharge to home or self care 11/30/2024 12:04 PM CDT - 11/30/2024 11:59 PM CDT Hospital Encounter [facility] Cardiology [address] [place] [address] Cerebrovascular accident (CVA), unspecified mechanism (HCC) [I63.9] Discharge Disposition: Discharge to home or self care 11/26/2024 Documentation [facility] Warm Hand Off Program 1 [place], [place] [phone] Cristiano Porras 11/23/2024 4:39 PM CDT - 11/30/2024 6:13 PM CDT Hospital Encounter [facility] Medical Care 1 [place] [address] Speedy Felix MD Huynh, Kiet T., MD [...] often do you attend chur ch or anabaptist services? Never 11/24/2024 Do you belong to any clubs o r organizations such as denominational groups, unions, fraternal or athletic groups, or [...] any time in the past 12 m [facility], were you homeless or living in a care home (including now)? Yes 11/24/2024 [facility] Utilities Answer Date Recorded In the past [...] on file Legal Sex Female 3:22 PM [employer] Gender Identity Not on file Sexual Orientation [...] HIGH-SENSITIVITY 4-HR Timed 11/23/2024 10:01 PM CDT NE CRITICAL CARE ILL/INJURED PATIENT INIT 30-74 MIN [...] - DEVICE F inal Result [facility] [address] Department of Laboratories [place], [place] [id number] * MCT Mobile Cardiac Telemetry Event Monitor (11/30/2024 12:04 PM CDT) Anatomical Region Laterality Modality Electrocardiogra phy 11/30/2024 12:0 7 PM CDT Narrative 12/09/2024 10:41 AM CDT [address] [address] EVENT MONITOR Patient Name: MIRANDA JOHNSON : [...] Procedure Note Ashok Baker MD - 12/09/[address] [place] [address] EVENT MONITOR Patient Name: MIRANDA JOHNSON : [...] POCT ORDERABLES - DEVICE F inal Result [facility] [place]) 1 [facility] Department [place] [address] * (ABNORMAL) POCT glucose (11/30/2024 7:46 AM CDT) Glucose, POC 237(H) 70 - 199 mg/dL Blood 11/30/2024 7:46 AM CDT 11/30/2024 7:46 AM CDT us Sarah Dawson MD LAB POCT ORDERABLES - DEVICE F inal Result Performing Organization Address City/[facility] Co de Phone Number S[facility]RA MITCHELL ([place]) 1 [facility] Department [place] [address] * eGFR (11/30/2024 4:55 AM CDT) eGFR [...] ORDERABLES Final Resu lt Performing Organization Address City/[facility]/ZIP Co de Phone Number SAYRA MITCHELL ([place]) 1 [facility] Department [place] [address] * Differential, auto (11/30/2024 4:55 AM CDT) Neutrophil abs 3.70 1.50 - 6.50 K/cumm Imm gran abs 0.02 0.00 - 0.10 K/cumm [facility]RA PAULA ([place]) Lymphocyte abs 1.42 0.80 - 3.30 K/cumm [...] Final Resu lt [facility] ([place]) 1 [facility] Department [place] [address] * (ABNORMAL) CBC with auto differential (11/30/2024 [...] Final Resu lt SAYRA MITCHELL ([place] 1 [facility] Department [place] [address] * (ABNORMAL) Comprehensive metabolic panel (11/30/2024 4:55 AM CDT) Pathologist [facility] Sodium 138 135 - 145 mmol/L CERNER [...] Final Resu lt [facility] ([place] 1 [facility] Department [place] [address] * (ABNORMAL) POCT glucose (11/30/2024 2:25 AM CDT) Glucose, POC 222(H) 70 - 199 mg/dL Blood 11/30/2024 2:25 AM CDT 11/30/2024 2:25 AM CDT us Sarah Dawson MD LAB POCT ORDERABLES - DEVICE F inal Result Performing Organization Address [facility] Co de Phone Number [facility] ([place]) 1 [facility] [place] [address] * POCT glucose (11/29/2024 8:47 PM CDT) Glucose, POC 176 70 - 199 mg/dL Blood 11/29/2024 8:47 PM CDT 11/29/2024 8:47 PM CDT us Sarah Dawson MD LAB POCT ORDERABLES - DEVICE F inal Result Performing Organization Address [facility] de Phone Number [facility] ([place]) 1 [facility] [place] [address] * POCT glucose (11/29/2024 4:42 PM CDT) Glucose, POC 144 70 - 199 mg/dL Blood 11/29/2024 4:42 PM CDT 11/29/2024 4:42 PM CDT us Sarah Dawson MD LAB POCT ORDERABLES - DEVICE F inal Result Performing Organization Address [facility] Co de Phone Number [facility] ([place]) 1 [facility] [place] [address] * POCT glucose (11/29/2024 11:41 AM CDT) Glucose, POC 165 70 - 199 mg/dL Blood 11/29/2024 11:4 1 AM CDT 11/29/2024 11:41 AM CDT us Sarah Dawson MD LAB POCT ORDERABLES - DEVICE F inal Result [facility] MITCHELL ([place]) 1 [facility] [place] [address] * POCT glucose (11/29/2024 8:00 AM CDT) Glucose, POC 189 70 - 199 mg/dL Blood 11/29/2024 8:00 AM CDT 11/29/2024 8:00 AM CDT Sarah Dawson MD LAB POCT ORDERABLES - DEVICE F inal Result Performing Organization Address [facility] Co de Phone Number SAYRA MITCHELL ([place]) 1 [facility] [place] [address] * eGFR (11/29/2024 5:53 AM CDT) eGFR [...] BLOOD ORDERABLES Final Resu lt S[facility]RA MITCHELL ([place]) 1 [facility] Department [place] [address] * Differential, auto (11/29/2024 5:53 AM CDT) [...] Neutrophil pct 56.6 % [facility] ([place]) Comment: Interpretive Data Percent cell count reference [...] Final Resu lt [facility] ([place] 1 [facility] Department [place] [address] * (ABNORMAL) CBC with auto differential (11/29/2024 [...] Final Resu lt [facility] ([place] 1 [facility] Department [place] [address] * (ABNORMAL) Comprehensive metabolic panel (11/29/2024 5:53 [...] ORDERABLES Final Resu lt Performing Organization Address City/[facility]/ZIP Co de Phone Number SAYRA MITCHELL ([place]) 1 [facility] [place] [address] * POCT glucose (11/29/2024 2:27 AM CDT) Glucose, POC 153 70 - 199 mg/dL Blood 11/29/2024 2:27 AM CDT 11/29/2024 2:27 AM CDT us Sarah Dawson MD LAB POCT ORDERABLES - DEVICE F inal Result Performing Organization Address [facility] de Phone Number SAYRA MITCHELL ([place]) 1 [facility] [place] [address] * POCT glucose (11/28/2024 4:36 PM CDT) Glucose, POC 154 70 - 199 mg/dL Blood 11/28/2024 4:36 PM CDT 11/28/2024 4:36 PM CDT Sarah Dawson MD LAB POCT ORDERABLES - DEVICE F inal Result Performing Organization Address [facility] Co de Phone Number SAYRA MITCHELL ([place]) 1 [facility] [place] [address] * POCT glucose (11/28/2024 11:46 AM CDT) Glucose, POC 123 70 - 199 mg/dL Blood 11/28/2024 11:4 6 AM CDT 11/28/2024 11:46 AM CDT Sarah Dawson MD LAB POCT ORDERABLES - DEVICE F inal Result Performing Organization Address City/[facility] Co de Phone Number SAYRA MITCHELL ([place]) 1 [facility] Department [place] [address] * eGFR (11/28/2024 9:11 AM CDT) Pathologist [facility] eGFR >90 >=60 mL/min/1. 73 m2 Comment: [...] LAB BLOOD ORDERABLES Final Resu lt [facility] [place] 1 [facility] Department [place] [address] * Differential, auto (11/28/2024 9:11 AM CDT) [...] Final Resu lt SAYRA MITCHELL ([place] 1 [facility] Department [place] [address] * (ABNORMAL) CBC with auto differential (11/28/2024 9:11 AM CDT) Pathologist [facility] WBC 5.72 3.80 - 9.90 K/cumm Hgb [...] MD LAB BLOOD ORDERABLES Final Resu lt [facility] ([place]) 1 [facility] Department [place] [address] * (ABNORMAL) Comprehensive metabolic panel (11/28/2024 9:11 AM CDT) Pathologist [facility] Sodium 139 135 - 145 mmol/L [facility] ([place]) Potassium, pl 3.8 3.3 - 4.9 mmol/L [facility] ([place]) Chloride 105 97 - 110 mmol/L [facility] ([place]) CO2 24 22 - 32 mmol/L [facility]) Anion gap 10 2 - 15 mmol/L [facility] ([place] BUN 10 6 - 25 [...] Final Resu lt [facility] ([place] 1 [facility] Department [place] [address] * (ABNORMAL) POCT glucose (11/28/2024 7:42 AM CDT) Glucose, POC 223(H) 70 - 199 mg/dL Blood 11/28/2024 7:42 AM CDT 11/28/2024 7:42 AM CDT us Sarah Dawson MD LAB POCT ORDERABLES - DEVICE F inal Result S[facility] MITCHELL ([place]) 1 [facility] [place] [address] * POCT glucose (11/28/2024 2:25 AM CDT) Glucose, POC 148 70 - 199 mg/dL Blood 11/28/2024 2:25 AM CDT 11/28/2024 2:25 AM CDT Sarah Dawson MD LAB POCT ORDERABLES - DEVICE F inal Result Performing Organization Address City/[facility]/ZIP Co de Phone Number [facility] ([place]) 1 [facility] [place] [address] * POCT glucose (11/27/2024 10:44 PM CDT) Glucose, POC 146 70 - 199 mg/dL Blood 11/27/2024 10:4 4 PM CDT 11/27/2024 10:44 PM CDT Sarah Dawson MD LAB POCT ORDERABLES - DEVICE F inal Result Performing Organization Address City/[facility]/ZIP Co de Phone Number [facility] ([place]) 1 [facility] [place] [address] * POCT glucose (11/27/2024 4:31 PM CDT) Glucose, POC 140 70 - 199 mg/dL Blood 11/27/2024 4:31 PM CDT 11/27/2024 4:31 PM CDT Sarah Dawson MD LAB POCT ORDERABLES - DEVICE F inal Result [facility] ([place]) 1 [facility] [place] [address] * POCT glucose (11/27/2024 11:11 AM CDT) Glucose, POC 187 70 - 199 mg/dL Blood 11/27/2024 11:1 1 AM CDT 11/27/2024 11:11 AM CDT Sarah Dawson MD LAB POCT ORDERABLES - DEVICE F inal Result Performing Organization Address City/[facility]/ZIP Co de Phone Number SAYRA MITCHELL ([place]) 1 [facility] [place] [address] * Calcium, ionized, whole blood (11/27/2024 10:00 AM CDT) [facility] Ca, ionized, bld 4.66 4.50 - 5.10 mg/dL Blood 11/27/2024 10:0 0 AM CDT 11/27/2024 10:02 AM CDT Sarah Dawson MD LAB BLOOD ORDERABLES Final Res ult Performing Organization Address [facility] Co de Phone Number SAYRA MITCHELL ([place]) 1 [facility] [place] [address] * (ABNORMAL) CBC without differential (11/27/2024 8:49 AM CDT) [facility] WBC 5.26 3.80 - 9.90 K/cumm Hgb 13.1 11.9 - 15.5 g/dL [facility] ([place]) Hct 40.7 35.6 - 45.5 % [facility] ([place]) Plt 258 150 - 400 K/cumm [facility] ([place]) MPV 10.5 9.1 - 12.3 fL [facility] RBC 4.89 3.90 - 5.20 M/cumm [facility] ([place] MCV 83.2 81.3 - 96.4 fL [facility] ([place] MCH 26.8(L) 27.1 - 33.3 pg [facility] ([place]) MCHC 32.2(L) 32.3 - 35.7 g/dL [facility] ([place]) RDW CV 13.4 11.1 - 14.9 % [facility] ([place]) RDW SD 40.2 35.7 - 48.1 fL [facility] ([place]) NRBC abs 0.00 0.00 - 0.01 K/cumm [facility] ([place]) Blood 11/27/2024 8:49 AM CDT 11/27/2024 9:04 AM CDT Sarah Dawson MD LAB BLOOD ORDERABLES Final Res ult SAYRA [facility] ([place]) 1 [facility] [employer] [place] [address] * POCT glucose (11/27/2024 7:46 AM CDT) Glucose, POC 132 70 - 199 mg/dL Blood 11/27/2024 7:46 AM CDT 11/27/2024 7:46 AM CDT Sarah Dawson MD LAB POCT ORDERABLES - DEVICE F inal Result Performing Organization Address City/[facility]/ZIP Co de Phone Number SAYRA MITCHELL ([place]) 1 [facility] [employer] [place] [address] * eGFR (11/27/2024 5:53 AM CDT) eGFR [...] MD LAB BLOOD ORDERABLES Final Resu lt [facility] ([place]) 1 [facility] Department [place] [address] * (ABNORMAL) Comprehensive metabolic panel (11/27/2024 5:53 [...] ([place]) Albumin 3.2(L) 3.5 - 5.0 g/dL [facility] ([place] Alk phos 87 40 - 130 Units/L [facility] ([place]) ALT 7 7 - 45 Units/L [facility] ([place]) Comment:Hemolysis present. R esults may be affected. AST 29 10 - 45 Units/L [facility] ([place]) Comment:Hemolysis present. R esults may be affected. Blood 11/27/2024 5:53 AM CDT 11/27/2024 6:13 AM CDT Rajesh Roman MD LAB BLOOD ORDERABLES Final Resu lt Performing Organization Address [facility]/ZIP Co de Phone Number SAYRA MITCHELL ([place]) 1 [facility] [place] [address] * POCT glucose (11/27/2024 2:13 AM CDT) Glucose, POC 155 70 - 199 mg/dL Blood 11/27/2024 2:13 AM CDT 11/27/2024 2:13 AM CDT Sarah Dawson MD LAB POCT ORDERABLES - DEVICE F inal Result Performing Organization Address [facility] Co de Phone Number SAYRA MITCHELL ([place]) 1 [facility] [place] [address] * POCT glucose (11/26/2024 9:00 PM CDT) Glucose, POC 133 70 - 199 mg/dL Blood 11/26/2024 9:00 PM CDT 11/26/2024 9:00 PM CDT Sarah Dawson MD LAB POCT ORDERABLES - DEVICE F inal Result Performing Organization Address [facility]/ZIP Co de Phone Number SAYRA MITCHELL ([place]) 1 [facility] Department [place] [address] * POCT glucose (11/26/2024 4:32 PM CDT) Glucose, POC 107 70 - 199 mg/dL Blood 11/26/2024 4:32 PM CDT 11/26/2024 4:32 PM CDT us Sarah Dawson MD LAB POCT ORDERABLES - DEVICE F inal Result SAYRA MITCHELL ([place]) 1 [facility] Department [place] [address] * TRANSESOPHAGEAL ECHO (PATRICK) W DOPPLER/CF WO CONTRAST (11/26/2024 2:22 PM CDT) Anatomical Region Laterality Modality Ultrasound 11/26/2024 Narrative 11/30/2024 6:29 AM CDT [employer] Job ID: [id number] [employer] Document ID: [id number] Dictated date/time: [id number] TRANSESOPHAGEAL ECHOCARDIOGRAM A 44-year-old admitted with stroke. Transesophageal echo was requested to rule out cardiac sources for embolism. After obtaining informed consent, patient brought to the echo lab. Noninvasive blood pressure, heart rate and oxygen saturation monitoring was applied. Topical anesthesia was applied to posterior oropharynx. Conscious sedation was administered by the crime laboratory analyst staff under my supervision. A total of [...] Ciro Hagan MD Job ID/Internal Job ID: [id number] Sarah Dawson MD CV ECHO PROCEDURES Final Resul t * POCT glucose (11/26/2024 11:37 AM CDT) Glucose, POC 139 70 - 199 mg/dL Blood 11/26/2024 11:3 7 AM CDT 11/26/2024 11:37 AM CDT Sarah Dawson MD LAB POCT ORDERABLES - DEVICE F inal Result Performing Organization Address City/[facility]/ZIP Co de Phone Number [facility] ([place]) [address] [place] [address] [employer] [place] [address] * POCT glucose (11/26/2024 8:03 AM CDT) Glucose, POC 123 70 - 199 mg/dL Blood 11/26/2024 8:03 AM CDT 11/26/2024 8:03 AM CDT Sarah Dawson MD LAB POCT ORDERABLES - DEVICE F inal Result Performing Organization Address City/[facility]/ZIP Co de Phone Number [facility] ([place]) [address] [place] [address] [place] [address] * eGFR (11/26/2024 5:04 AM CDT) eGFR [...] BLOOD ORDERABLES Final Resu lt [facility] ([place]) 1 [facility] Department [place] [address] * Differential, auto (11/26/2024 5:04 AM CDT) [...] Final Resu lt [facility] ([place] 1 [facility] Department [place] [address] * (ABNORMAL) CBC with auto differential (11/26/2024 [...] Final Resu lt SAYRA MITCHELL ([place]) 1 [facility] Department [place] [address] * (ABNORMAL) Lipid panel (11/26/2024 5:04 AM [...] last revised on 2023. Testing performed by: [facility], [facility], [place], [address] Non-HDL Cholesterol 132 mg/dL SAYRA MITCHELL ([place]) [...] last revised on 2017. Testing performed by: [place], [address] Chol/HDL ratio 4 [facility]ERNE R [facility] ([place]) Comment:Testing performed by : [place], [address] Blood 11/26/2024 5:04 AM CDT 11/26/2024 5:45 AM CDT us Juan Jim NP LAB BLOOD ORDERABLES Final Result [facility] ([place]) [address] [place] [address] Department [place] [address] * (ABNORMAL) Comprehensive metabolic panel (11/26/2024 5:04 AM CDT) Sodium 140 135 - 145 mmol/L [facility] ([place]) Potassium, pl 3.8 3.3 - 4.9 mmol/L [facility] ([place]) Chloride 109 97 - 110 mmol/L [facility] ([place]) CO2 23 22 - 32 mmol/L [facility] ([place]) Anion gap 8 2 - 15 mmol/L [facility] ([place] BUN 10 6 - 25 mg/dL [facility] ([place]) Creatinine 0.83 0.60 - 1.10 [...] BLOOD ORDERABLES Final Resu lt [facility] MITCHELL ([place]) 1 [facility] [employer] [place] [address] * POCT glucose (11/26/2024 2:11 AM CDT) Glucose, POC 133 70 - 199 mg/dL Blood 11/26/2024 2:11 AM CDT 11/26/2024 2:11 AM CDT us Sarah Dawson MD LAB POCT ORDERABLES - DEVICE F inal Result Performing Organization Address City/[facility]/ZIP Co de Phone Number SAYRA [facility] ([place]) 1 [facility] [employer] [place] [address] * POCT glucose (11/25/2024 8:01 PM CDT) Glucose, POC 128 70 - 199 mg/dL Blood 11/25/2024 8:01 PM CDT 11/25/2024 8:01 PM CDT us Sarah Dawson MD LAB POCT ORDERABLES - DEVICE F inal Result [facility] MITCHELL [place] 1 [facility] Department [place] [address] * CTA Head Neck W WO Contrast [...] November 25, 2024 . FINDINGS: INTRACRANIAL VESSELS [place] OF [place]: The zcysir-jr-Onbecg is intact. ANTERIOR CIRCULATION: The carotid siphons [...] by Lynnette Judge M.D. SN: Report ID: [id number] Reading Location: [place] [address] Procedure Note Lynnette Judge MD - 11/26/2024 [...] November 25, 2024 . FINDINGS: INTRACRANIAL VESSELS [place] OF [place]: The bjfinh-vw-Njlrsm is intact. ANTERIOR CIRCULATION: The carotid siphons [...] beaded appearance of the V1 and proximal M2fxnkdbo of the right vertebral artery. 4. Stenoses may be secondary to fibromuscular dysplasia. 5. No evidence of carotid or vertebral artery dissection. THIS IS AN ELECTRONICALLY VERIFIED FINAL REPORT 11/26/2024 6:21 AM - Electronically signed by Lynnette Judge M.D. SN: Report ID: [id number] Reading Location: [id number] Sarah Dawson MD IMG CT PROCEDURES Final Result * POCT glucose (11/25/2024 4:48 PM CDT) Glucose, POC 148 70 - 199 mg/dL Blood 11/25/2024 4:48 PM CDT 11/25/2024 4:48 PM CDT Sarah Dawson MD LAB POCT ORDERABLES - DEVICE F inal Result [facility] MITCHELL ([place]) 1 [facility] Department [place] [address] * CT Head WO Contrast (11/25/2024 4:00 [...] Lynnette Judge M.D. SN: SN Report ID: [id number] Reading Location: [id number] Procedure Note Lynnette Judge MD - 11/26/2024 [...] Lynnette Judge M.D. SN: SN Report ID: [id number] Reading Location: [id number] Sarah Dawson MD IM CT PROCEDURES Final [...] risk factors. Elsewhere in the brain the kxmqv-clndfsd-jhyq-left subcortical and periventricular white matter T2/FLAIR hyperintense signal in the bilateral cerebral hemispheres, sagwu-fcjbjly-dkeo-left. These lesions are nonspecific in appearance and [...] patient's nurse VALE Mclain via telephone by id Dr. Wilder Palma on 11/25/2024 at 3:56 pm central standard time. THIS IS AN ELECTRONICALLY VERIFIED FINAL REPORT 11/25/2024 4:03 PM - Electronically signed by Devin Palma D.O. AP: AP Report ID: [id number] Reading Location: [id number] Procedure Note Devin Palma, DO - 11/25/2024 [...] patient's risk factors.Elsewhere in the brain the lgblh-aljcteh-jblq-left subcortical and periventricularwhite matter T2/FLAIR hyperintense signal in the bilateral cerebral hemispheres, wuiix-pnoecah-esdt-left. These lesions are nonspecific in appearance andmay [...] patient's nurse VALE Mclain via telephone by id Dr. Wilder Palma on 11/25/2024 at 3:56 pm central standardtime. THIS IS AN ELECTRONICALLY VERIFIED FINAL REPORT 11/25/2024 4:03 PM - Electronically signed by Devin Palma D.O. AP: KEON Report ID: [id number] Reading Location: [id number] us Sarah Dawson MD IMG MRI PROCEDURES [...] Cristiano Araujo M.D. HODAN: HODAN Report ID: [id number] Reading Location: [place] [address] Procedure Note Cristiano Araujo MD - 11/25/2024 [...] Cristiano Araujo M.D. HODAN: HODAN Report ID: [id number] Reading Location: [place] [address] Sarah Dawson MD IMG US PROCEDURES Final Result * POCT glucose (11/25/2024 11:56 AM CDT) Glucose, POC 132 70 - 199 mg/dL Blood 11/25/2024 11:5 6 AM CDT 11/25/2024 11:56 AM CDT Sarah Dawson MD LAB POCT ORDERABLES - DEVICE F inal Result [facility] ([place]) 5 [facility] Department [place] [address] * eGFR (11/25/2024 9:28 AM [...] MD LAB BLOOD ORDERABLES Final Res ult [facility] ([place]) 1 [facility] Department [place] [address] * (ABNORMAL) Comprehensive metabolic panel (11/25/2024 9:28 [...] Final Res ult SAYRA MITCHELL ([place]) 1 [facility] Department [place] [address] * (ABNORMAL) POCT glucose (11/25/2024 7:50 AM CDT) [facility] Glucose, POC 208(H) 70 - 199 mg/dL Blood 11/25/2024 7:50 AM CDT 11/25/2024 7:50 AM CDT Sarah Dawson MD LAB POCT ORDERABLES - DEVICE F inal Result S[facility] MITCHELL ([place]) [address] [place] [address] Department [place] [address] * Differential, auto (11/25/2024 3:52 AM CDT) [...] Final Resu lt SAYRA PAULA ([place]) 1 [facility] Department [place] [address] * (ABNORMAL) CBC with auto differential (11/25/2024 [...] BLOOD ORDERABLES Final Resu lt S[facility] MITCHELL ([place]) 1 [facility] [employer] [place] [address] * POCT glucose (11/25/2024 2:35 AM CDT) Glucose, POC 195 70 - 199 mg/dL Blood 11/25/2024 2:35 AM CDT 11/25/2024 2:35 AM CDT us Sarah Dawson MD LAB POCT ORDERABLES - DEVICE F inal Result Performing Organization Address City/[facility]/ZIP Co de Phone Number SAYRA MITCHELL ([place]) 1 [facility] [place] [address] * POCT glucose (11/24/2024 8:29 PM CDT) Glucose, POC 168 70 - 199 mg/dL Blood 11/24/2024 8:29 PM CDT 11/24/2024 8:29 PM CDT Sarah Dawson MD LAB POCT ORDERABLES - DEVICE F inal Result Performing Organization Address [facility] Co de Phone Number [facility] ([place]) 1 [facility] [place] [address] * POCT glucose (11/24/2024 5:07 PM CDT) Glucose, POC 140 70 - 199 mg/dL Blood 11/24/2024 5:07 PM CDT 11/24/2024 5:07 PM CDT Sarah Dawson MD LAB POCT ORDERABLES - DEVICE F inal Result Performing Organization Address [facility] de Phone Number [facility] ([place]) 1 [facility] [place] [address] * (ABNORMAL) POCT glucose (11/24/2024 12:17 PM CDT) Glucose, POC 221(H) 70 - 199 mg/dL Blood 11/24/2024 12:1 7 PM CDT 11/24/2024 12:17 PM CDT Sarah Dawson MD LAB POCT ORDERABLES - DEVICE F inal Result Performing Organization Address [facility] Co de Phone Number [facility] ([place]) 1 [facility] [place] [address] * TRANSTHORACIC ECHO (TTE) LIMITED/FOLLOW UP WO DOPPLER/CF WO CONTRAST (11/24/2024 8:00 AM CDT) Estimated EF 60-70 % CONS SCIMAGE EF Mod BP 57 % CONS SCIMAGE Anatomical Region Laterality Modality Ultrasound 11/24/2024 8:02 AM CDT Narrative 11/24/2024 10:10 AM CDT [address] [place] [address] Limited Echocardiogram Report Patient Name: MIRANDA JOHNSON : 1980 Study Date: 11/24/2024 8:02:28 AM Sex: F Tech: Location: [id number] Ref Provider: RAJESH ROMAN Height(Cm): BSA: Weight(Kg): [...] Procedure Note Neida Justin MD - 11/24/2024 [place] [address] [place] [address] Limited Echocardiogram Report Patient Name: MIRANDA JOHNSON : 1980 Study Date: 11/24/2024 8:02:28 AM Sex: F Tech: Location: [id number] Ref Provider: RAJESH ROMAN Height(Cm): BSA: Weight(Kg): [...] DEVICE F inal Result Performing Organization Address City/[facility]/ZIP Co de Phone Number SAYRA MITCHELL ([place]) 1 [facility] Department [place] [address] * (ABNORMAL) POCT glucose (11/24/2024 2:36 AM CDT) Pathologist [facility] Glucose, POC 284(H) 70 - 199 mg/dL Blood 11/24/2024 2:36 AM CDT 11/24/2024 2:36 AM CDT Rajesh Roman MD LAB POCT ORDERABLES - DEVICE Fi nal Result Performing Organization Address [facility] Co de Phone Number [facility] ([place]) 1 [place] [address] * Troponin T high-sensitivity 6-hour (11/24/2024 12:41 AM CDT) [facility] Trop T hs 6 <=14 ng/L [facility] ([place]) Comment: Interpretive Data For further hscTnT resources including the diagnostic algorithm and an aid in interpretation, copy and paste this link: https://nrl.testcatalog.org/show/hsTrop Current Interpretive Data last revised 2020. Trop T hs delta 0 ng/L [facility] ([place]) Trop T hs interp Insignificant [facility] ([place]) Blood 11/24/2024 12:4 1 AM CDT 11/24/2024 12:47 AM CDT Speedy Felix MD LAB BLOOD ORDERABLES Final R esult Performing Organization Address [facility]/ZIP Co de Phone Number [facility] ([place]) 1 [facility] Department [place] [address] * eGFR (11/24/2024 12:41 AM CDT) [facility] eGFR >90 >=60 mL/min/1. 73 m2 [...] LAB BLOOD ORDERABLES Final Resu lt SAYRA [facility] ([place]) 1 [facility] Department [place] [address] * Differential, auto (11/24/2024 12:41 AM CDT) Pathologist [facility] Neutrophil abs 5.66 1.50 - 6.50 K/cumm [...] Neutrophil pct 68.4 % [facility] ([place]) Comment: Interpretive Data Percent cell count reference [...] 2017. Monocyte pct 4.3 % [facility] ([place]) Comment: Interpretive Data [...] Final Resu lt [facility] MITCHELL ([place]) 1 [facility] Department of [facility] [place], [place] [id number] * (ABNORMAL) CBC with auto differential (11/24/2024 [...] Final Resu lt [facility] ([place]) 1 [facility] [place] [address] * (ABNORMAL) Comprehensive metabolic panel (11/24/2024 12:41 [...] LAB BLOOD ORDERABLES Final Resu lt SAYRA [facility] ([place]) 1 [facility] Department [place] [address] * XR Tibia Fibula Left 2 Views [...] Florin Alfredo M.D. KT: TOM Report ID: [id number] Reading Location: [id number] Procedure Note Florin Alfredo MD - 11/24/2024 [...] Florin Alfredo M.D. KT: TOM Report ID: [id number] Reading Location: [id number] us Rajesh Roman MD IMG XR PROCEDURES [...] Florin Alfredo M.D. KT: TOM Report ID: [id number] Reading Location: [id number] Procedure Note Florin Alfredo MD - 11/24/2024 [...] Florin Alfredo M.D. KT: TOM Report ID: [id number] Reading Location: [place] [id number] us Rajesh Roman MD IMG XR PROCEDURES [...] Florin Alfredo M.D. KT: TOM Report ID: [id number] Reading Location: [id number] Procedure Note Florin Alfredo MD - 11/24/2024 [...] Florin Alfredo M.D. KT: TOM Report ID: [id number] Reading Location: [id number] Rajesh Roman MD IMG XR PROCEDURES Final [...] BLOOD ORDERABLES Final R esult [facility]RA PAULA ([place]) 1 [facility] Department [place] [address] * NE CRITICAL CARE ILL/INJURED PATIENT INIT 30-74 MIN [...] hs interp See Comment C P[facility] ([place]) Blood 11/23/2024 8:49 PM CDT 11/23/2024 8:55 PM CDT Speedy Felix MD LAB BLOOD ORDERABLES Final R esult [facility] ([place]) 1 [facility] Department [place] [address] * POCT glucose (11/23/2024 8:45 PM CDT) Glucose, POC 182 70 - 199 mg/dL Blood 11/23/2024 8:45 PM CDT 11/23/2024 8:45 PM CDT Speedy Felix MD LAB POCT ORDERABLES - DEVICE Final Result Performing Organization Address City/[facility] Co de Phone Number [facility] ([place]) 1 [facility] [place] [address] * CT Chest PE (CTA) W Contrast [...] Florin Alfredo M.D. KT: KT Report ID: [id number] Reading Location: [id number] Procedure Note Florin Alfredo MD - 11/23/2024 [...] Florin Alfredo M.D. KT: TOM Report ID: [id number] Reading Location: [id number] Ana Haines MD [facility] CT PROCEDURES Final Result * (ABNORMAL) POCT glucose (11/23/2024 7:09 PM CDT) Glucose, POC 232(H) 70 - 199 mg/dL Blood 11/23/2024 7:09 PM CDT 11/23/2024 7:09 PM CDT Speedy Felix MD LAB POCT ORDERABLES - DEVICE Final Result [facility] ([place]) 1 [facility] Department [place] [address] * XR Chest 1 Vw Portable (11/23/2024 [...] August Zuniga M.D. CH: WU Report ID: [id number] Reading Location: [id number] Procedure Note August Zuniga MD - 11/23/2024 [...] by August Zuniga M.D. CH: Report ID: [id number] Reading Location: [id number] Speedy Felix MD IMG XR PROCEDURES Final Resu lt * ECG 12 lead (11/23/2024 6:09 PM CDT) 11/23/2024 6:09 PM CDT Narrative [facility] - 11/24/2024 7:08 AM CDT Vent Rate: 114 bpm RR Interval: 525 msec NE Interval: 132 msec QRS Duration: 96 msec QT Interval: 344 msec QTC Interval: 411 msec P-R-T Telferner: 54 - -3 - 59 degrees IMPRESSION: SINUS TACHYCARDIA Nonspecific ST DEPRESSION [0.05+ mV ST DEPRESSION] ABNORMAL ECG Electronically Signed By: Ciro Hagan MD Speedy Felix MD ECG ORDERABLES Final Result [facility] * Troponin T high-sensitivity series [...] ORDERABLES Final R esult Performing Organization Address City/[facility]/ZIP Co de Phone Number [facility] MIT[facility] [place]) 1 [facility] [place] [address] * Sepsis Lactate w/ Reflex (11/23/2024 6:03 PM CDT) Sepsis Lactate 1.7 0.7 - 2.0 mmol/L Blood 11/23/2024 6:03 PM CDT 11/23/2024 6:08 PM CDT Speedy Felix MD LAB BLOOD ORDERABLES Final R esult Performing Organization Address [facility] Co de Phone Number [facility] ([place]) 1 [facility] [place] [address] * eGFR (11/23/2024 6:03 PM CDT) eGFR [...] Final R esult [facility] ([place]) 1 [facility] Department [place] [address] * (ABNORMAL) Differential, auto (11/23/2024 6:03 PM [...] BLOOD ORDERABLES Final R esult [facility] ([place]) 1 [facility] [place] [address] * Pro B-type natriuretic peptide (11/23/2024 6:03 PM CDT) NT-proBNP 258 <=300 pg/mL [facility] ([place]) Comment: Interpretive Comments: A. Dyspnea in Acute [...] Final R esult [facility] ([place]) 1 [facility] [place] [address] * (ABNORMAL) Urinalysis reflex to microscopic and [...] tendency for uric acid stone formation. Source: [facility] Current Interpretive Data was last revised [...] RDERABLES Final Result [facility] ([place]) 1 [facility] [place] [address] * (ABNORMAL) CBC with auto differential (11/23/2024 [...] Final R esult [facility] ([place]) 1 [facility] [employer] [place] [address] * (ABNORMAL) Urinalysis, microscopic only (11/23/2024 6:03 PM CDT) WBC, ur 0-5 0 - 5 /HPF RBC, ur 0-2 0 - 2 /HPF SAYRA [facility] ([place]) Epithelial cells, squamous, ur 6-10(A) 0 - 5 /HPF SAYRA [facility] ([place]) Mucous, ur Present(A) [facility] ([place]) Culture Reflex Comment Reflex conditions for urine culture (WBC >10) not met. [facility] ([place]) Urine 11/23/2024 6:03 PM CDT 11/23/2024 6:20 PM CDT Speedy Felix MD LAB URINE ORDERABLES Final R esult Performing Organization Address City/[facility]/ZIP Co de Phone Number HEATHERJUNG [facility] ([place]) 1 [facility] [place] [address] * (ABNORMAL) D-dimer, quantitative (11/23/2024 6:03 PM [...] LAB BLOOD ORDERABLES Final R esult SAYRA [facility] ([place]) 1 [facility] [place] [address] * Magnesium (11/23/2024 6:03 PM CDT) Pathologist [facility] Magnesium 1.9 1.4 - 2.5 mg/dL [facility] ([place]) Blood 11/23/2024 6:03 PM CDT 11/23/2024 6:08 PM CDT Speedy Felix MD LAB BLOOD ORDERABLES Final R esult Performing Organization Address City/[facility] Co de Phone Number [facility] ([place]) 1 [facility] [place] [address] * (ABNORMAL) Hemoglobin A1c (11/23/2024 6:03 PM CDT) [facility] Hgb A1C 8.5(H) 4.0 - 5.6 % [facility] ([place]) Estimated Average Glucose 197 mg/dL [facility] ([place]) Comment: The ADA recommends reporting an estimated Average Glucose (eAG) with all Hemoglobin A1c results using the equation derived from a study of 507 normal and diabetic adults. Minority populations were underrepresented and children were not included. (Diabetes Care 31:3689-3161, 2008). The eAG is not equivalent to a fasting glucose. Testing performed by: [facility], [facility], [place], [address] Blood 11/23/2024 6:03 PM CDT 11/23/2024 8:28 PM CDT Speedy Felix MD LAB BLOOD ORDERABLES Final R esult Performing Organization Address City/[facility] Co de Phone Number [facility] ([place]) 1 [facility] [place] [address] * (ABNORMAL) Comprehensive metabolic panel (11/23/2024 6:03 PM CDT) [facility] Sodium 138 135 - 145 mmol/L [facility] ([place]) Potassium, pl 3.5 3.3 - 4.9 mmol/L [facility] ([place]) Chloride 102 97 - 110 mmol/L [facility] [...] Final R esult [facility] ([place]) 1 [facility] Department [place] [address] * (ABNORMAL) Drugs of Abuse Screen, Urine [...] Final Resul t [facility] ([place]) 1 [facility] Department [place] [address] * Ethanol (11/23/2024 5:49 PM CDT) Ethanol [...] BLOOD ORDERABLES Final Resul t [facility] ([place]) 1 [facility] Department [place] [address] from Last 3 Months Insurance [facility] [employer] [facility] Advance Directives For more information, please contact: [phone] * Full Code (Latest Code Status on File) Date Activated Date Inactivated Comments 11/23/2024 9:17 PM 11/30/2024 10:13 PM Care Teams Rn Cardiology Relationship Specialty Start Date End Date No, Physician PCP - General 02/22/23
--- OUTSIDE RECORDS SUMMARY | 2025-01-05 01:21 | XMS_ITS | Encounter Summary ---
Author Organization [facility] Address 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
--- OUTSIDE RECORDS SUMMARY | 2025-01-05 01:21 | XMS_ITS | Clinical Summary ---
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
[2025-01-05 01:24] LABS: Hematocrit 41.7 % (37.0-47.0); Hemoglobin 13.9 g/dL (12.0-15.0); Immature Granulocyte Percent A 0.2 % (0-0.5); Lymphocytes Absolute Auto 2.62 K/mm3 (0.9-3.2); Mean Corpuscular HGB Conc 33.3 g/dl (32-36); Mean Corpuscular Hemoglobin 26.7 pg (26-34); Mean Corpuscular Volume 80.2 fl (80-100); Nucleated Red Blood Cells Absolute Auto 0.000 K/mm3 (0.0-0.012); Nucleated Red Blood Cells Perc 0.0 % (0.0-0.2); Platelet Count Result 250 k/mm3 (150-375); Red Blood Count 5.20 M/mm3 (4.2-5.4); White Blood Count 8.4 K/mm3 (4.5-10.0)
[2025-01-05 01:29] LABS: Add Urine Microscopic? YES; Appearance Urine Clear (Clear); Glucose Urine UA Negative (Negative); Leukocyte Esterase Ur Trace LEU/UL (Negative); Nitrate Urine Negative (Negative); Non Pathogenic Casts 0-2; Specific Grav Ur 1.015 (1.001-1.035)
[2025-01-05 01:32] LABS: Alanine Aminotransferase 27 U/L (6-35); Albumin Level 4.4 g/dL (3.5-5.1); Alkaline Phosphatase 125 U/L (38-126); Anion Gap 7 mmol/L (4-12); Aspartate Amino Transferase 23 U/L (14-36); Bilirubin,Total 0.5 mg/dL (0.2-1.3); Blood Urea Nitrogen 8 mg/dL (7-17); Calcium 9.8 mg/dL (8.4-10.2); Carbon Dioxide 28 mmol/L (22-30); Chloride 102 mmol/L (98-107); Estimated Glomerular Filt Rate > 60; Glucose 202 mg/dL (65-110); Potassium 4.1 mmol/L (3.4-5.0); Sodium 137 mmol/L (137-145); Total Protein 7.9 g/dL (6.3-8.2)
[2025-01-05 01:50] LABS: Influenza A QL RT-PCR Negative (Negative); Influenza B QL RT-PCR Negative (Negative); RSV RNA, RT-PCR Negative (Negative); SARS-CoV-2 RNA PCR Negative (Negative)
[2025-01-05 01:51] LABS: BEDSIDEPREGUCG Negative (Negative)
[2025-01-05 02:16] LABS: Thyroid Stimulating Hormone Reflex 1.540 uIU/mL (0.465-4.68)
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
[2025-01-05 02:32] LABS: Cannabinoid Screen Urine Negative (Negative)
[2025-01-05] MEDS: KETOROLAC (*BKC) 60 MG/2 ML VIAL IM (02:58)
--- NOTE | 2025-01-05 09:51 | PCCCNOTE ---
Call received from nursing staff requesting assistance with pt. She apparently signed out of her facility AMA recently. Attempted to speak with pt but she only responded with one word responses. Call placed to Y[facility] Collins. She signed out from [facility] on Saturday01/03/25 AMA with a friend. She sent pt's information with med list which was attached to her chart. Karina will be meeting with staff this morning and may need to meet with pt to see if they are able to accept her back to one of the [facility]. Nursing staff informed.
--- NOTE | 2025-01-05 10:07 | PC.NURSE ---
Rn walked into pt room pt stating I'm feeling suicidal. I don't feel safe from myself. Pravin reassessed, pt now low risk EDP and conditioning yard supervisor aware
--- NOTE | 2025-01-05 13:21 | PC.NURSE ---
Pt continues to verbalize I feel suicidal, I don't want to live through the night. Pt still has no plan/intention and has not done anything since to try to make an attempt. Pt still fitting low risk criteria. electric sign wirer and EDP aware
--- NOTE | 2025-01-05 13:34 | PCCCNOTE ---
Requested we meet with pt for placement. She signed herself out of [facility] on 01/03/25 and a friend took her to her home in the mobile home park in [place]. Pt states she can't take care of herself and her friend can't help her either. Call placed to rep Karina with [facility] who reviewed situation with her staff and have decided they are unable to accept her back at any of their facilities. Pt requested a referral be placed to [facility] in [place]. Referral faxed and call placed to Jaye. Message left informing her of a new referral and requesting a return call. Kamille has seen pt and has a safety contract on the chart.
--- NOTE | 2025-01-05 14:20 | PCCCNOTE ---
Call placed to [facility] who reports [facility] is out for the day. Asked if anyone else can take a referral for possible admission today and it was faxed to [phone] and the assistance director will review and call us with decision.
--- NOTE | 2025-01-05 15:53 | PCCCNOTE ---
Call placed to [facility]. They stated they would likely not be able to accept pt today as they will be full. Pt requested referrals be sent to [facility] Referrals faxed
--- NOTE | 2025-01-05 16:20 | PCCCNOTE ---
Calls placed to [facility] will review faxed information and let us know if they are able to accept. [facility] rep will review and probably doesn't have room this evening but they will be moving rooms around may have room available in the am if she's still here.
--- NOTE | 2025-01-05 16:23 | PCCCNOTE ---
Addendum entered by Mary Billingsley RN 01/05/25 17:22: Informed pt & nursing staff of status as provider not available.. Addendum entered by Mary Billingsley RN 01/05/25 17:01: Mariia with [facility] states unable to accept pt due to background check returned with multiple violations that prohibit acceptance. Referrals faxed to [facility], [facility], [facility] [place], [facility], [facility], [facility], [facility] Original Note: Call placed to [facility]. [facility] will review & call to let us know if able to accept. [facility] will review. May not be able to accept tonight but may have room in the morning as they are moving rooms.
--- NOTE | 2025-01-05 16:32 | PC.NURSE ---
Pt co pain, EDP made aware
--- NOTE | 2025-01-05 17:31 | PC.NURSE ---
EDP aware of pt blood glucose levels
[2025-01-05] MEDS: ACETAMINOPHEN 500 MG TABLET 1000 MG PO (17:39)
--- NOTE | 2025-01-05 18:12 | P.HP_ITS ---
H&P: HPI History of Present Illness Date/Time: 01/05/25 18:12 Chief Complaint: Left Knee/Hip Pain Narrative: 44 y/o F with PMH of DM2, anxiety, and CVA with no significant residual deficits per patient presents here with left knee/hip pain. The patient presents here for further evaluation of left hip pain and left knee pain. HPI obtained through chart review, ED provider report, and patient report. Initially difficult to obtain story from as she told multiple emergency room staff members different stories. However, upon further investigation the patient recently signed out of [facility] (yesterday or day before evaluation here) as she was unhappy with her care. During her ED course she was medically cleared. Denied fall. However when it was discussed where the patient will go at discharge, she reported suicidal ideation. She was evaluated by the crisis team and did not meet criteria for admission for. She again or was evaluated for discharge and at that time and was discovered that she had endorsed suicidal ideation when she believes [facility] was [facility]. Once she realized she did not have to go back, she recanted that she was suicidal. She is requiring placement currently as she is unable to stand unassisted. At this time she denies any complaints and continues to deny SI/HI. Initial VS at presentation: 98.2? F, HR 86, RR 18, 164/70, and 97% on room air. ED workup showed: No leukocytosis, no anemia, no significant electrolyte derangements, glucose 202, creatinine 0.69 and GFR >60, TSH within normal limits, UA showed trace leuk esterase and 6-10 WBC. Left knee XR showed no acute fracture or dislocation. Hip/pelvic XR showed no acute fracture or dislocation. CXR showed no acute cardiopulmonary findings. Head CT showed old infarcts involving the right frontal and parietal lobes, right basal ganglia, anterior limb right internal capsule, and left frontal lobe. Review of Systems Review of Systems: All systems reviewed & are unremarkable except as noted in HPI and below [facility] Past Medical History Medical History CVA (cerebral vascular accident) Noted on head CT on 01/05/2025: Old infarcts involving the right frontal and parietal lobes, right basal ganglia, anterior limb right internal capsule, and left frontal lobe. DM type 2 (diabetes mellitus, type 2) Family History Family History Other Diabetes mellitus Family history of malignant neoplasm Hypertension Social History Social History Smoking packs per day: 0.35 Smoking cigarettes per day: 7.0 Years smoked: 20 Smoking pack-years: 7.00 Smoking status: Current every day smoker Tobacco type: cigarettes Alcohol intake: never Substance use: never Lack of Transportation: No Lack of Food: Never True Current Housing: I Have Housing Concerned About Future Housing: No Difficulty Paying Gas/Electric Bills: No Difficulty Paying for Meds: No Currently Unemployed: No Education: High School Diploma/GED Difficulty w/ Childcare or Family Care: No Spiritual care concerns: No Meds Home Medications and Allergies Home Medications ?Medication ?Instructions ?Recorded ?Confirmed ?Type insulin regular human 100 unit/mL 1 sliding scale dose subcut 11/15/24 Rx injection solution (Humulin R USEASDIRECTD #10 mL Regular U-100 Insulin) insulin syringes (disposable) 1 mL #500 ea 11/15/24 R x Allergies Allergy/AdvReac Type Severity Reaction Status Date / Time cephalexin Allergy Unknown Hives Verified 01/05/25 21:56 Cephalosporins Allergy Unknown Hives Verified 01/05/25 21:56 Vital Signs Vital Signs - 24 hr 01/04/25 20:48 01/05/25 06:59 01/05/25 10:06 Temperature 98.2 F 97.4 F L 98.1 F Pulse Rate 86 97 108 H Respiratory Rate 18 16 17 Blood Pressure 164/70 H 152/88 H 159/103 H Pulse Oximetry 97 98 98 Oxygen Delivery Room Air 01/05/25 11:58 01/05/25 16:32 01/05/25 17:39 Temperature Pulse Rate 106 H 106 H 106 H Respiratory Rate 18 15 17 Blood Pressure 150/103 H 182/110 H 173/108 H Pulse Oximetry 98 98 100 Oxygen Delivery Exam Const: General: comfortable and no acute distress Other: , female, nontoxic appearance HENMT: Face/Nose/Sinus: Normal nares present Mouth: Yes moist mucous membranes Eyes: General: appearance normal, both eyes and all related structures Sclera: sclerae normal Pupils: Equal, round and reactive pupils present EOM: EOMs intact bilaterally Resp: Effort & Inspection: normal respiratory effort Auscultation: clear to auscultation bilaterally Cardio: Rate: regular rate Rhythm: regular rhythm Other: S1-S2 present without murmur, rub, ectopy GI: Other: Abdomen soft, nondistended, nontender. Normoactive bowel sounds in all quadrants. Skin: General skin exam: normal color and no rashes or lesions noted Wounds: no wounds Neuro: Speech: normal speech Motor exam (neuro): 5/5 motor strength present throughout Sensory Exam: normal sensation Other: A&O x4 Extrem: General: normal to inspection Psych: Mental Status: mental status grossly normal Affect: normal affect Other: Fair to good insight and judgment, denying SI or HI at present. No agitation, flight of ideas, or issues with behavior noted. H&P: Results Labs Labs: Short CBC 01/05/25 Range/Units 01:03 WBC 8.4 (4.5-10.0) K/mm3 Hgb 13.9 (12.0-15.0) g/dL Hct 41.7 (37.0-47.0) % Plt Count 250 (150-375) k/mm3 BMP 01/05/25 01:03 Sodium 137 Potassium 4.1 Chloride 102 Carbon Dioxide 28 BUN 8 Creatinine 0.69 L Glucose 202 H Calcium 9.8 Liver Function 01/05/25 Range/Units 01:03 Total Bilirubin 0.5 (0.2-1.3) mg/dL AST 23 (14-36) U/L ALT 27 (6-35) U/L Alkaline Phosphatase 125 (38-126) U/L Albumin 4.4 (3.5-5.1) g/dL Urine 01/05/25 Range/Units 01:13 Urine Color Yellow (Yellow) Urine Appearance Clear (Clear) Urine pH 6.0 (5.0-9.0) Ur Specific [place] 1.015 (1.001-1.035) Urine Protein Trace (Negative) mg/dL Urine Glucose (UA) Negative (Negative) mg/dL Assessment and Plan Assessment and plan (1) Adult failure to thrive: Code(s): R62.7 - Adult failure to thrive Status: Acute Assessment and Plan: [facility] as she was unhappy with her care. Meri deluca had endorsed suicidal ideation and was evaluated by the crisis seen, did not meet admission criteria and head CT [facility] for discharge. However patient is unable to care for herself at home and unable to stand without assistance, therefore require placement. Once patient relies she no longer had to go back to [facility] she recanted her suicidal statements. - care coordination consulted for placement - PT/OT evaluation for decreased mobility and placement (2) DM type 2 (diabetes mellitus, type 2): Qualifiers: Diabetes mellitus complication status: without complication Diabetes mellitus custodial insulin use: with custodial use Qualified Code(s): E11.9 - Type 2 diabetes mellitus without complications; Z79.4 - assistant terminal manager (current) use of insulin Code(s): E11.9 - Type 2 diabetes mellitus without complications Status: Acute Assessment and Plan: - hypoglycemia protocol - POC blood glucose ACHS - patient does not have a list available from her prior facility and does not know her home medications, requesting records from [facility] - correct regimen ordered - high dose TIDWM Plan Diet: Diabetic GI Prophylaxis: n/a DVT Prophylaxis: SCDs IV fluids: none Lines/Tubes: peripheral IV Code Status: full code Quality VTE Prophylaxis VTE prophylaxis: mechanical ordered Hospitalist MIPS Advance Care Plan I have confirmed that the patient's Advanced Care Plan is present, code status is documented, or surrogate decision maker is listed in patient medical record.: Yes Medication Reconciliation I have utilized all available resources to obtain, update and review the patients current medications (includes all prescriptions, OTC, herbals, cannabis, and nutritional supplements).: Yes
--- NOTE | 2025-01-05 19:06 | ADMGEN ---
This patient, Marie Johnson, was admitted to [facility] Surg Room 333-01. Patient/family oriented to hospital policies and general routines including ID bracelet, bed and alarms, visiting hours, pain management, procedures, bathroom and other care routines, personal items, smoking policy, room service/diet, and visiting hours. Information on how to activate the Rapid Response Team has been discussed. Patient/Family are encouraged to report perceived risks to care and to ask questions if they do not understand what they are told or what they should do. received report from alvin patient arrived at 1900.
[2025-01-06 04:58] VITALS: BP 160/98; PULSE 92; RESP 16; TEMP 36.5; O2SAT 98
--- NOTE | 2025-01-06 07:17 | PCCCNOTE ---
0700-Received call from Aishwarya from [facility]. They are unable to accept pt at any of their locations, due to not being able to meet her needs.
--- NOTE | 2025-01-06 08:39 | P.PNIM_ITS ---
Progress Note: A&P Assessment and Plan (1) Adult failure to thrive: Code(s): R62.7 - Adult failure to thrive Status: Acute Assessment and Plan: In setting of history of CVA. Patient recently signed out from [facility] as she was unhappy with her care. Initially had endorsed suicidal ideation and was evaluated by the crisis seen, did not meet admission criteria. However patient is unable to care for herself at home and unable to stand without assistance, therefore requires placement. Patient adamantly denied suicidal ideation this AM. - care coordination consulted for placement - PT/OT evaluation for decreased mobility and placement - complains of R knee and hip pain - X-rays ordered (2) History of CVA (cerebrovascular accident): Code(s): Z86.73 - Personal history of transient ischemic attack (TIA), and cerebral infarction without residual deficits Status: Acute Assessment and Plan: - with chronic left-sided weakness and facial droop - reports originally diagnosed in [place] and symptoms were attributed to her drug use. Also reports recent hospitalization at [facility] - attempting to obtain records - restart ASA, Plavix (3) DM type 2 (diabetes mellitus, type 2): Qualifiers: Diabetes mellitus complication status: without complication Diabetes mellitus mcc insulin use: with rat exterminator use Qualified Code(s): E11.9 - Type 2 diabetes mellitus without complications; Z79.4 - nursing home (current) use of insulin Code(s): E11.9 - Type 2 diabetes mellitus without complications Status: Acute Assessment and Plan: - hypoglycemia protocol - POC blood glucose ACHS - reports she is on Lantus 20u at home, restarted at reduced dose. Continue high dose SSI. 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 Reports she quickly relap sed. Reports being clean for about 1 month. Plan DVT Prophylaxis: SCDs Code Status: full code Dispo: SNF Subjective Date/time seen: 01/06/25 08:39 Interval history: Patient seen and examined at bedside. Patient confirms she has recently had multiple strokes that have left her debilitated and unable to care for herself. She reports left hip and knee pain. Reports a left knee fracture that she was diagnosed with in [place]. Patient is tearful and anxious regarding discharge planning. Review of Systems Review of Systems: All systems reviewed & are unremarkable except as noted in HPI and below Exam Narrative: General: NAD, obese Eyes: EOMI ENT: neck supple Cardiovascular: Regular rate and rhythm Respiratory: Clear to auscultation, respirations even and unlabored on RA Gastrointestinal: Soft, non tender Genitourinary: no suprapubic tenderness Musculoskeletal: No edema Skin: warm, dry Neuro: Alert. Left-sided weakness and left-sided facial droop (chronic). Psych: Mood appropriate Objective Data Vital Signs Vital Signs: Vital Signs - 24 hr 01/05/25 10:06 01/05/25 11:58 01/05/25 16:32 Temperature 98.1 F Pulse Rate 108 H 106 H 106 H Respiratory Rate 17 18 15 Blood Pressure 159/103 H 150/103 H 182/110 H Pulse Oximetry 98 98 98 01/05/25 17:39 01/05/25 18:55 01/05/25 21:49 Temperature 97.5 F L 97.4 F L Pulse Rate 106 H 110 H 93 Respiratory Rate 17 18 16 Blood Pressure 173/108 H 159/114 H 164/85 H Pulse Oximetry 100 97 100 01/06/25 04:58 Temperature 97.7 F Pulse Rate 92 Respiratory Rate 16 Blood Pressure 160/98 H Pulse Oximetry 98 Intake/Output Intake/Output: Intake & Output 01/03/25 01/04/25 01/05/25 01/06/25 23:59 23:59 23:59 23:59 Intake Total 100 Balance 100 Meds/Results Medications: Active Medications Generic Name Dose Route Start Last Admin Trade Name Freq PRN Reason Stop Dose Admin Acetaminophen 650 mg 01/05/25 18:02 Acetaminophen 325 Mg Tablet PO Q4H PRN Mild Pain (1-3) or Fever Dextrose 12.5 gm 01/05/25 18:37 Dextrose 50% 25 Gm/50 Ml Syringe IV PUSH PRN PRN Hypoglycemia Protocol Glucagon 1 mg 01/05/25 18:37 Glucagon For Inj 1 Mg Vial IM PRN PRN Hypoglycemia Protocol Glucose 15 gm 01/05/25 18:37 Glucose Oral Gel 15 Gm Of Glucse In 37.5 Gm Tube PO PRN PRN Hypoglycemia Protocol Dextrose 1,000 mls @ 100 mls/hr 01/05/25 18:37 Dextrose 5% 1,000 Ml IVPB PRN PRN Hypoglycemia Protocol Insulin Aspart 4 - 8 units 01/06/25 08:00 Insulin Aspart (*Bkc) 100 Units/Ml SUB-Q TIDWM MINH Protocol Ondansetron HCl 4 mg 01/05/25 18:02 Ondansetron Inj 4 Mg/2 Ml Vial IV PUSH Q4H PRN Nausea Radiology Results: ITS Impressions Knee X-Ray 01/04/25 22:11 IMPRESSION: Radiographic examination of the left knee demonstrates no acute fracture or dislocation. Hip X-Ray 01/04/25 22:24 IMPRESSION: Radiographic examination of the left hip demonstrates no acute fracture or dislocation. Chest X-Ray 01/05/25 06:27 IMPRESSION: 1. No acute cardiopulmonary findings given portable technique. Head CT 01/05/25 06:33 IMPRESSION: 1. 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 Labs Labs: Laboratory Results - last 24 hr 01/05/25 01/05/25 01/05/25 17:15 21:37 21:53 POC Capillary Glucose 237 H 209 H 228 H 01/06/25 08:18 POC Capillary Glucose 179 H Quality VTE Prophylaxis VTE prophylaxis: mechanical ordered
[2025-01-06] MEDS: INSULIN ASPART (*BKC) 100 UNITS/ML SUB-Q ×2 (12:08→17:13)
[2025-01-06] MEDS: ACETAMINOPHEN 325 MG TABLET 650 MG PO ×2 (12:12→20:29)
[2025-01-06] MEDS: ASPIRIN 81 MG ENTERIC TABLET PO (13:46)
[2025-01-06] MEDS: INSULIN GLARGINE (*BKC) 100 UNITS/ML 15 UNITS SUB-Q (13:46)
[2025-01-06] MEDS: CLOPIDOGREL BISULFATE 75 MG TABLET PO (13:46)
[2025-01-06 14:00] VITALS: BP 146/85; PULSE 91; RESP 14; TEMP 36.1; O2SAT 98
[2025-01-06] MEDS: CYCLOBENZAPRINE HCL 10 MG TABLET PO ×2 (14:17→22:22)
[2025-01-06] MEDS: LOSARTAN POTASSIUM 25 MG TABLET PO (14:17)
[2025-01-06 18:44] LABS: Hemoglobin A1C 7.8 % (<5.7)
[2025-01-06 20:16] VITALS: BP 152/91; PULSE 71; RESP 20; TEMP 37.4; O2SAT 97
[2025-01-07 05:35] VITALS: BP 161/101; PULSE 87; RESP 16; TEMP 36.6; O2SAT 97
--- NOTE | 2025-01-07 08:15 | P.PNIM_ITS ---
Progress Note: A&P Assessment and Plan (1) Adult failure to thrive: Code(s): R62.7 - Adult failure to thrive Status: Acute Assessment and Plan: In setting of history of CVA. Patient recently signed out from [facility] as she was unhappy with her care. Initially had endorsed suicidal ideation and was evaluated by the crisis seen, did not meet admission criteria. However patient is unable to care for herself at home and unable to stand without assistance, therefore requires placement. Patient adamantly denied suicidal ideation this AM. - care coordination consulted for placement - PT/OT evaluation for decreased mobility and placement (2) History of CVA (cerebrovascular accident): Code(s): Z86.73 - Personal history of transient ischemic attack (TIA), and cerebral infarction without residual deficits Status: Acute Assessment and Plan: - with chronic left-sided weakness, facial droop, left-sided neglect - reports originally diagnosed in [place] and symptoms were attributed to her drug use. Also reports recent hospitalization at [facility] - attempting to obtain records - restart ASA, Plavix (3) DM type 2 (diabetes mellitus, type 2): Qualifiers: Diabetes mellitus complication status: without complication Diabetes mellitus group home insulin use: with terminal press operator use Qualified Code(s): E11.9 - Type 2 diabetes mellitus without complications; Z79.4 - longterm (current) use of insulin Code(s): E11.9 - Type 2 diabetes mellitus without complications Status: Acute Assessment and Plan: - hemoglobin A1c - 7.8 - hypoglycemia protocol - POC blood glucose ACHS - continue home Lantus 20u. Continue high dose SSI. (4) Hypertension: Code(s): I10 - Essential (primary) hypertension Status: Acute Assessment and Plan: - BP labile. Stop losartan. Continue home clonidine with hold parameters. 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 Reports she quickly relapsed. Reports being clean for about 1 month. (6) Tibial plateau fracture: Code(s): S82.143A - Displaced bicondylar fracture of unspecified tibia, initial encounter for closed fracture Status: Chronic Assessment and Plan: - patient reported history of knee fracture diagnosed in [place] - XR L knee with nonacute tibial plateau fracture - discussed with orthopedic surgery Dr. Colin - patient can be WBAT. He will consult. - PT/OT - continue pain control (7) Depression: Code(s): F32.A - Depression, unspecified Status: Acute Assessment and Plan: - continue home Wellbutrin Plan DVT Prophylaxis: Lovenox Code Status: full code Dispo: [facility] Subjective Date/time seen: 01/07/25 08:15 Interval history: Patient seen and examined up in chair. Denies acute complaints. Discussed plan of care. Review of Systems Review of Systems: All systems reviewed & are unremarkable except as noted in HPI and below Exam Narrative: General: NAD, obese Eyes: EOMI ENT: neck supple Cardiovascular: Regular rate and rhythm Respiratory: Clear to auscultation, respirations even and unlabored on RA Gastrointestinal: Soft, non tender Genitourinary: no suprapubic tenderness Musculoskeletal: No edema Skin: warm, dry Neuro: Alert. Left-sided weakness and left-sided facial droop (chronic). Psych: Mood appropriate Objective Data Vital Signs Vital Signs: Vital Signs - 24 hr 01/06/25 14:00 01/06/25 20:16 01/07/25 05:35 Temperature 97.0 F L 99.3 F 97.8 F Pulse Rate 91 71 87 Respiratory Rate 14 20 16 Blood Pressure 146/85 H 152/91 H 161/101 H Pulse Oximetry 98 97 97 Intake/Output Intake/Output: Intake & Output 01/04/25 01/05/25 01/06/25 01/07/25 23:59 23:59 23:59 23:59 Intake Total 456 240 Balance 456 240 Meds/Results Medications: Active Medications Generic Name Dose Route Start Last Admin Trade Name Freq PRN Reason Stop Dose Admin Acetaminophen 650 mg 01/05/25 18:02 01/06/25 20:29 Acetaminophen 325 Mg Tablet PO 650 mg Q4H PRN Administration Mild Pain (1-3) or Fever Aspirin 81 mg 01/06/25 12:40 01/06/25 13:46 Aspirin 81 Mg Enteric Tablet PO 81 mg QAM MINH Administration Clopidogrel Bisulfate 75 mg 01/06/25 12:40 01/06/25 13:46 Clopidogrel Bisulfate 75 Mg Tablet PO 75 mg QAM MINH Administration Cyclobenzaprine HCl 10 mg 01/06/25 14:03 01/06/25 22:22 Cyclobenzaprine Hcl 10 Mg Tablet PO 10 mg Q8H PRN Administration Muscle Spasm Dextrose 12.5 gm 01/05/25 18:37 Dextrose 50% 25 Gm/50 Ml Syringe IV PUSH PRN PRN Hypoglycemia Protocol Glucagon 1 mg 01/05/25 18:37 Glucagon For Inj 1 Mg Vial IM PRN PRN Hypoglycemia Protocol Glucose 15 gm 01/05/25 18:37 Glucose Oral Gel 15 Gm Of Glucse In 37.5 Gm Tube PO PRN PRN Hypoglycemia Protocol Dextrose 1,000 mls @ 100 mls/hr 01/05/25 18:37 Dextrose 5% 1,000 Ml IVPB PRN PRN Hypoglycemia Protocol Insulin Aspart 4 - 8 units 01/06/25 08:00 01/07/25 07:51 Insulin Aspart (*Bkc) 100 Units/Ml SUB-Q Not Given TIDWM [facility] Protocol Insulin Glargine 15 units 01/06/25 12:40 01/06/25 13:46 Insulin Glargine (*Bkc) 100 Units/Ml 0.2 units/kg (15 units) 15 units SUB-Q Administration DAILY MINH Losartan Potassium 25 mg 01/06/25 14:05 01/06/25 14:17 Losartan Potassium 25 Mg Tablet PO 25 mg DAILY [facility]H Administration Nicotine 1 patch 01/07/25 09:00 Nicotine (*Pbkc) 7 Mg Patch TRANSDERM DAILY [facility] Ondansetron HCl 4 mg 01/05/25 18:02 Ondansetron Inj 4 Mg/2 Ml Vial IV PUSH Q4H PRN Nausea Radiology Results: ITS Impressions Hip X-Ray 01/04/25 22:24 IMPRESSION: Radiographic examination of the left hip demonstrates no acute fracture or dislocation. Chest X-Ray 01/05/25 06:27 IMPRESSION: 1. No acute cardiopulmonary findings given portable technique. Head CT 01/05/25 06:33 IMPRESSION: 1. 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 Knee X-Ray 01/06/25 13:12 Impression: No acute fracture or malalignment. Hip/Pelvis X-Ray 01/06/25 13:13 Impression: No acute fracture or malalignment. Labs Labs: Laboratory Results - last 24 hr 01/05/25 01/06/25 01/06/25 01:03 08:18 11:55 POC Capillary Glucose 179 H 244 H Hemoglobin A1c 7.8 H 01/06/25 01/06/25 01/07/25 16:41 19:40 07:46 POC Capillary Glucose 211 H 214 H 158 H Hemoglobin A1c Quality VTE Prophylaxis VTE prophylaxis: mechanical ordered
[2025-01-07] MEDS: NICOTINE (*PBKC) 7 MG PATCH 1 PATCH TRANSDERM (09:29)
[2025-01-07] MEDS: INSULIN GLARGINE (*BKC) 100 UNITS/ML 15 UNITS SUB-Q (09:32)
[2025-01-07] MEDS: GABAPENTIN 400 MG CAPSULE 800 MG PO ×3 (09:36→17:22)
[2025-01-07] MEDS: CLOPIDOGREL BISULFATE 75 MG TABLET PO (09:36)
[2025-01-07] MEDS: buPROPion HCL XL (24 HR) 150 MG TABCR PO (09:36)
[2025-01-07] MEDS: LOSARTAN POTASSIUM 25 MG TABLET PO (09:36)
[2025-01-07] MEDS: ACETAMINOPHEN 325 MG TABLET 650 MG PO ×3 (09:37→22:59)
[2025-01-07] MEDS: ASPIRIN 81 MG ENTERIC TABLET PO (09:37)
[2025-01-07] MEDS: ATORVASTATIN 40 MG TABLET 80 MG PO (09:39)
[2025-01-07] MEDS: CYCLOBENZAPRINE HCL 10 MG TABLET PO ×2 (09:46→19:48)
[2025-01-07] MEDS: BUPRENORPHINE/NALOXONE (*CRX) 4 MG/1 MG SL FILM 2 EACH SUBLINGUAL ×2 (09:46→12:12)
[2025-01-07] MEDS: INSULIN ASPART (*BKC) 100 UNITS/ML SUB-Q ×2 (12:02→22:47)
[2025-01-07 14:00] VITALS: BP 92/60; PULSE 93; RESP 14; TEMP 35.9; O2SAT 94
[2025-01-07 15:28] VITALS: BP 98/64
[2025-01-07 17:00] VITALS: BP 100/74
[2025-01-07 20:00] VITALS: PULSE 87; RESP 18; O2SAT 94
[2025-01-07 20:45] VITALS: BP 101/61; PULSE 87; RESP 18; TEMP 36.8; O2SAT 94
--- NOTE | 2025-01-08 00:20 | PC.NURSE ---
Called Zarina Lemos Polysil[employer] Preparation Worker regarding pts BP 184/64 and HGB result of 7.5 New orders for Q6H H&H and 12.5 mg Coreg PO NOW.
[2025-01-08 04:31] VITALS: BP 128/81; PULSE 70; RESP 16; TEMP 36.6; O2SAT 99
--- NOTE | 2025-01-08 08:16 | P.PNIM_ITS ---
Progress Note: A&P Assessment and Plan (1) Adult failure to thrive: Code(s): R62.7 - Adult failure to thrive Status: Acute Assessment and Plan: In setting of history of CVA. Patient recently signed out from [facility] [employer] as she was unhappy with her care. Initially had endorsed suicidal ideation and was evaluated by the crisis seen, did not meet admission criteria. However patient is unable to care for herself at home and unable to stand without assistance, therefore requires placement. Patient adamantly denied suicidal ideation this AM. - care coordination consulted for placement - PT/OT evaluation for decreased mobility and placement (2) History of CVA (cerebrovascular accident): Code(s): Z86.73 - Personal history of transient ischemic attack (TIA), and cerebral infarction without residual deficits Status: Acute Assessment and Plan: - with chronic left-sided weakness, facial droop, left-sided neglect - reports originally diagnosed in [place] and symptoms were attributed to her drug use. 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 Continue high dose SSI. (4) Hypertension: Code(s): I10 - Essential (primary) hypertension Status: Acute Assessment and Plan: - BP labile. Stop losartan. Continue home clonidine with hold parameters. 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 Reports she quickly relapsed. Reports being clean for about 1 month. (6) Tibial plateau fracture: Code(s): S82.143A - Displaced bicondylar fracture of unspecified tibia, initial encounter for closed fracture Status: Chronic Assessment and Plan: - patient reported history of knee fracture diagnosed in [place] - XR L knee with nonacute tibial plateau fracture - discussed with orthopedic surgery Dr. Colin - patient can be WBAT. Follow-up in 7-10 days as outpatient. - PT/OT - continue pain control (7) Depression: Code(s): F32.A - Depression, unspecified Status: Acute Assessment and Plan: - continue home Wellbutrin Plan DVT Prophylaxis: Lovenox Code Status: full code Dispo: [facility] Subjective Date/time seen: 01/08/25 08:16 Interval history: Patient seen and examined at bedside. Seems to be in better spirits today. States pain is decently controlled. Discussed plan of care with case management. Review of Systems Review of Systems: All systems reviewed & are unremarkable except as noted in HPI and below Exam Narrative: General: NAD, obese Eyes: EOMI ENT: neck supple Cardiovascular: Regular rate and rhythm Respiratory: Clear to auscultation, respirations even and unlabored on RA Gastrointestinal: Soft, non tender Genitourinary: no suprapubic tenderness Musculoskeletal: No edema Skin: warm, dry Neuro: Alert. Left-sided weakness and left-sided facial droop (chronic). Psych: Mood appropriate Objective Data Vital Signs Vital Signs: Vital Signs - 24 hr 01/07/25 09:55 01/07/25 10:22 01/07/25 14:00 Temperature 96.6 F L Pulse Rate 93 Respiratory Rate 14 Blood Pressure 92/60 L Pulse Oximetry 94 Oxygen Delivery Room Air Room Air 01/07/25 15:28 01/07/25 17:00 01/07/25 20:00 Temperature Pulse Rate 87 Respiratory Rate 18 Blood Pressure 98/64 L 100/74 Pulse Oximetry 94 Oxygen Delivery Room Air 01/07/25 20:45 01/08/25 04:31 Temperature 98.3 F 97.8 F Pulse Rate 87 70 Respiratory Rate 18 16 Blood Pressure 101/61 128/81 Pulse Oximetry 94 99 Oxygen Delivery Intake/Output Intake/Output: Intake & Output 01/05/25 01/06/25 01/07/25 01/08/25 23:59 23:59 23:59 23:59 Intake Total 456 1428 100 Balance 456 1428 100 Meds/Results Medications: Active Medications Generic Name Dose Route Start Last Admin Trade Name Freq PRN Reason Stop Dose Admin Acetaminophen 650 mg 01/05/25 18:02 01/07/25 22:59 Acetaminophen 325 Mg Tablet PO 650 mg Q4H PRN Administration Mild Pain (1-3) or Fever Aspirin 81 mg 01/06/25 12:40 01/07/25 09:37 Aspirin 81 Mg Enteric Tablet PO 81 mg QAM MINH Administration Atorvastatin Calcium 80 mg 01/07/25 09:00 01/07/25 09:39 Atorvastatin 40 Mg Tablet PO 80 mg DAILY MINH Administration Buprenorphine/Naloxone 2 each 01/07/25 09:00 01/07/25 16:05 Buprenorphine/Naloxone (*Crx) 4 Mg/1 Mg Sl Film SUBLINGUAL Not Given TID MINH Bupropion HCl 150 mg 01/07/25 09:00 01/07/25 09:36 Bupropion Hcl Xl (24 Hr) 150 Mg Tabcr PO 150 mg DAILY MINH Administration Clonidine HCl 0.1 mg 01/07/25 09:00 01/07/25 16:04 Clonidine Hcl 0.1 Mg Tablet PO Not Given TID MINH Clopidogrel Bisulfate 75 mg 01/06/25 12:40 01/07/25 09:36 Clopidogrel Bisulfate 75 Mg Tablet PO 75 mg QAM MINH Administration Cyclobenzaprine HCl 10 mg 01/06/25 14:03 01/07/25 19:48 Cyclobenzaprine Hcl 10 Mg Tablet PO 10 mg Q8H PRN Administration Muscle Spasm Dextrose 12.5 gm 01/05/25 18:37 Dextrose 50% 25 Gm/50 Ml Syringe IV PUSH PRN PRN Hypoglycemia Protocol Enoxaparin Sodium 40 mg 01/08/25 09:00 Enoxaparin 40 Mg/0.4 Ml Syringe SUB-Q DAILY MINH Gabapentin 800 mg 01/07/25 09:00 01/07/25 17:22 Gabapentin 400 Mg Capsule PO 800 mg TID MINH Administration Glucagon 1 mg 01/05/25 18:37 Glucagon For Inj 1 Mg Vial IM PRN PRN Hypoglycemia Protocol Glucose 15 gm 01/05/25 18:37 Glucose Oral Gel 15 Gm Of Glucse In 37.5 Gm Tube PO PRN PRN Hypoglycemia Protocol Dextrose 1,000 mls @ 100 mls/hr 01/05/25 18:37 Dextrose 5% 1,000 Ml IVPB PRN PRN Hypoglycemia Protocol Insulin Aspart 4 - 8 units 01/06/25 08:00 01/07/25 17:00 Insulin Aspart (*Bkc) 100 Units/Ml SUB-Q Not Given TIDWM MINH Protocol Insulin Glargine 20 units 01/08/25 09:00 Insulin Glargine (*Bkc) 100 Units/Ml SUB-Q DAILY MINH Nicotine 1 patch 01/07/25 09:00 01/07/25 09:29 Nicotine (*Pbkc) 7 Mg Patch TRANSDERM 1 patch DAILY MINH Administration Ondansetron HCl 4 mg 01/05/25 18:02 Ondansetron Inj 4 Mg/2 Ml Vial IV PUSH Q4H PRN Nausea Radiology Results: ITS Impressions Hip X-Ray 01/04/25 22:24 IMPRESSION: Radiographic examination of the left hip demonstrates no acute fracture or dislocation. Chest X-Ray 01/05/25 06:27 IMPRESSION: 1. No acute cardiopulmonary findings given portable technique. Head CT 01/05/25 06:33 IMPRESSION: 1. 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 Knee X-Ray 01/06/25 13:12 Impression: No acute fracture or malalignment. Hip/Pelvis X-Ray 01/06/25 13:13 Impression: No acute fracture or malalignment. Labs Labs: Laboratory Results - last 24 hr 01/07/25 01/07/25 01/07/25 11:48 16:31 21:00 POC Capillary Glucose 206 H 141 H 333 H 01/08/25 01/08/25 01:27 07:47 POC Capillary Glucose 297 H 150 H Quality VTE Prophylaxis VTE prophylaxis: mechanical ordered
[2025-01-08] MEDS: CLOPIDOGREL BISULFATE 75 MG TABLET PO (08:53)
[2025-01-08] MEDS: ATORVASTATIN 40 MG TABLET 80 MG PO (08:53)
[2025-01-08] MEDS: GABAPENTIN 400 MG CAPSULE 800 MG PO ×3 (08:53→17:25)
[2025-01-08] MEDS: ASPIRIN 81 MG ENTERIC TABLET PO (08:53)
[2025-01-08] MEDS: ENOXAPARIN 40 MG/0.4 ML SYRINGE SUB-Q (08:54)
[2025-01-08] MEDS: buPROPion HCL XL (24 HR) 150 MG TABCR PO (08:54)
[2025-01-08] MEDS: NICOTINE (*PBKC) 7 MG PATCH 1 PATCH TRANSDERM (08:54)
[2025-01-08] MEDS: INSULIN GLARGINE (*BKC) 100 UNITS/ML 20 UNITS SUB-Q (08:55)
[2025-01-08 09:00] VITALS: BP 138/81; PULSE 83
[2025-01-08] MEDS: ACETAMINOPHEN 325 MG TABLET 650 MG PO (09:10)
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
[2025-01-08] MEDS: CYCLOBENZAPRINE HCL 10 MG TABLET PO (12:07)
[2025-01-08] MEDS: BUPRENORPHINE/NALOXONE (*CRX) 4 MG/1 MG SL FILM 2 EACH SUBLINGUAL ×2 (12:08→17:25)
[2025-01-08] MEDS: INSULIN ASPART (*BKC) 100 UNITS/ML SUB-Q (12:08)
[2025-01-08 14:00] VITALS: BP 100/70; PULSE 86; RESP 18; TEMP 36.8; O2SAT 98
[2025-01-08 20:21] VITALS: BP 112/68; PULSE 74; RESP 16; TEMP 36.1; O2SAT 96
[2025-01-09 06:00] VITALS: BP 116/54; PULSE 72; RESP 16; TEMP 36.4; O2SAT 98
[2025-01-09] MEDS: NICOTINE (*PBKC) 7 MG PATCH 1 PATCH TRANSDERM (08:43)
[2025-01-09] MEDS: buPROPion HCL XL (24 HR) 150 MG TABCR PO (08:43)
[2025-01-09] MEDS: GABAPENTIN 400 MG CAPSULE 800 MG PO ×3 (08:43→17:06)
[2025-01-09] MEDS: ASPIRIN 81 MG ENTERIC TABLET PO (08:44)
[2025-01-09] MEDS: ATORVASTATIN 40 MG TABLET 80 MG PO (08:44)
[2025-01-09] MEDS: CLOPIDOGREL BISULFATE 75 MG TABLET PO (08:44)
[2025-01-09] MEDS: ENOXAPARIN 40 MG/0.4 ML SYRINGE SUB-Q (08:45)
[2025-01-09] MEDS: INSULIN GLARGINE (*BKC) 100 UNITS/ML 20 UNITS SUB-Q (08:46)
--- NOTE | 2025-01-09 12:12 | P.PNIM_ITS ---
Progress Note: A&P Assessment and Plan (1) Adult failure to thrive: Code(s): R62.7 - Adult failure to thrive Status: Acute Assessment and Plan: In setting of history of CVA. Patient recently signed out from [employer] as she was unhappy with her care. Initially had endorsed suicidal ideation and was evaluated by the crisis seen, did not meet admission criteria. However patient is unable to care for herself at home and unable to stand without assistance, therefore requires placement. Patient adamantly denied suicidal ideation this AM. - care coordination consulted for placement - PT/OT evaluation for decreased mobility and placement (2) History of CVA (cerebrovascular accident): Code(s): Z86.73 - Personal history of transient ischemic attack (TIA), and cerebral infarction without residual deficits Status: Acute Assessment and Plan: - with chronic left-sided weakness, facial droop, left-sided neglect - reports originally diagnosed in [place] and symptoms were attributed to her drug use. 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 Continue high dose SSI. (4) Hypertension: Code(s): I10 - Essential (primary) hypertension Status: Acute Assessment and Plan: - BP labile. Stop losartan. Continue home clonidine with hold parameters. 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 Reports she quickly relapsed. Reports being clean for about 1 month. (6) Tibial plateau fracture: Code(s): S82.143A - Displaced bicondylar fracture of unspecified tibia, initial encounter for closed fracture Status: Chronic Assessment and Plan: - patient reported history of knee fracture diagnosed in [place] - XR L knee with nonacute tibial plateau fracture - discussed with orthopedic surgery Dr. Colin - patient can be WBAT. Follow-up in 7-10 days as outpatient. - PT/OT - continue pain control (7) Depression: Code(s): F32.A - Depression, unspecified Status: Acute Assessment and Plan: - continue home Wellbutrin Plan DVT Prophylaxis: Lovenox Code Status: full code Dispo: [facility] Subjective Date/time seen: 01/09/25 12:12 Interval history: Patient seen and examined at bedside. Seems to be in better spirits today. States pain is decently controlled. Discussed plan of care with case management. Review of Systems Review of Systems: All systems reviewed & are unremarkable except as noted in HPI and below Exam Narrative: General: NAD, obese Eyes: EOMI ENT: neck supple Cardiovascular: Regular rate and rhythm Respiratory: Clear to auscultation, respirations even and unlabored on RA Gastrointestinal: Soft, non tender Genitourinary: no suprapubic tenderness Musculoskeletal: No edema Skin: warm, dry Neuro: Alert. Left-sided weakness and left-sided facial droop (chronic). Psych: Mood appropriate Objective Data Vital Signs Vital Signs: Vital Signs - 24 hr 01/08/25 14:00 01/08/25 20:00 01/08/25 20:21 Temperature 98.3 F 97 F L Pulse Rate 86 74 Respiratory Rate 18 16 Blood Pressure 100/70 112/68 Pulse Oximetry 98 96 Oxygen Delivery Room Air 01/09/25 06:00 Temperature 97.5 F L Pulse Rate 72 Respiratory Rate 16 Blood Pressure 116/54 L Pulse Oximetry 98 Oxygen Delivery Intake/Output Intake/Output: Intake & Output 01/06/25 01/07/25 01/08/25 01/09/25 23:59 23:59 23:59 23:59 Intake Total 456 1428 700 300 Balance 456 1428 700 300 Meds/Results Medications: Active Medications Generic Name Dose Route Start Last Admin Trade Name Freq PRN Reason Stop Dose Admin Acetaminophen 650 mg 01/05/25 18:02 01/08/25 09:10 Acetaminophen 325 Mg Tablet PO 650 mg Q4H PRN Administration Mild Pain (1-3) or Fever Aspirin 81 mg 01/06/25 12:40 01/09/25 08:44 Aspirin 81 Mg Enteric Tablet PO 81 mg QAM MINH Administration Atorvastatin Calcium 80 mg 01/07/25 09:00 01/09/25 08:44 Atorvastatin 40 Mg Tablet PO 80 mg DAILY MINH Administration Buprenorphine/Naloxone 2 each 01/07/25 09:00 01/09/25 08:44 Buprenorphine/Naloxone (*Crx) 4 Mg/1 Mg Sl Film SUBLINGUAL Not Given TID MINH Bupropion HCl 150 mg 01/07/25 09:00 01/09/25 08:43 Bupropion Hcl Xl (24 Hr) 150 Mg Tabcr PO 150 mg DAILY MINH Administration Clonidine HCl 0.1 mg 01/07/25 09:00 01/09/25 08:49 Clonidine Hcl 0.1 Mg Tablet PO 0.1 mg TID MINH Administration Clopidogrel Bisulfate 75 mg 01/06/25 12:40 01/09/25 08:44 Clopidogrel Bisulfate 75 Mg Tablet PO 75 mg QAM MINH Administration Cyclobenzaprine HCl 10 mg 01/06/25 14:03 01/08/25 12:07 Cyclobenzaprine Hcl 10 Mg Tablet PO 10 mg Q8H PRN Administration Muscle Spasm Dextrose 12.5 gm 01/05/25 18:37 Dextrose 50% 25 Gm/50 Ml Syringe IV PUSH PRN PRN Hypoglycemia Protocol Enoxaparin Sodium 40 mg 01/08/25 09:00 01/09/25 08:45 Enoxaparin 40 Mg/0.4 Ml Syringe SUB-Q 40 mg DAILY MINH Administration Gabapentin 800 mg 01/07/25 09:00 01/09/25 08:43 Gabapentin 400 Mg Capsule PO 800 mg TID MINH Administration Glucagon 1 mg 01/05/25 18:37 Glucagon For Inj 1 Mg Vial IM PRN PRN Hypoglycemia Protocol Glucose 15 gm 01/05/25 18:37 Glucose Oral Gel 15 Gm Of Glucse In 37.5 Gm Tube PO PRN PRN Hypoglycemia Protocol Dextrose 1,000 mls @ 100 mls/hr 01/05/25 18:37 Dextrose 5% 1,000 Ml IVPB PRN PRN Hypoglycemia Protocol Insulin Aspart 4 - 8 units 01/06/25 08:00 01/09/25 08:45 Insulin Aspart (*Bkc) 100 Units/Ml SUB-Q Not Given TIDWM [facility] Protocol Insulin Glargine 20 units 01/08/25 09:00 01/09/25 08:46 Insulin Glargine (*Bkc) 100 Units/Ml SUB-Q 20 units DAILY MINH Administration Nicotine 1 patch 01/07/25 09:00 01/09/25 08:43 Nicotine (*Pbkc) 7 Mg Patch TRANSDERM 1 patch DAILY MINH Administration Ondansetron HCl 4 mg 01/05/25 18:02 Ondansetron Inj 4 Mg/2 Ml Vial IV PUSH Q4H PRN Nausea Radiology Results: ITS Impressions Hip X-Ray 01/04/25 22:24 IMPRESSION: Radiographic examination of the left hip demonstrates no acute fracture or dislocation. Chest X-Ray 01/05/25 06:27 IMPRESSION: 1. No acute cardiopulmonary findings given portable technique. Head CT 01/05/25 06:33 IMPRESSION: 1. 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 Knee X-Ray 01/06/25 13:12 Impression: No acute fracture or malalignment. Hip/Pelvis X-Ray 01/06/25 13:13 Impression: No acute fracture or malalignment. Labs Labs: Laboratory Results - last 24 hr 01/08/25 01/08/25 01/09/25 16:51 20:26 08:06 POC Capillary Glucose 124 H 179 H 135 H 01/09/25 11:38 POC Capillary Glucose 216 H Quality VTE Prophylaxis VTE prophylaxis: mechanical ordered
[2025-01-09] MEDS: ACETAMINOPHEN 325 MG TABLET 650 MG PO (12:13)
[2025-01-09] MEDS: CYCLOBENZAPRINE HCL 10 MG TABLET PO (12:13)
[2025-01-09] MEDS: INSULIN ASPART (*BKC) 100 UNITS/ML SUB-Q (12:14)
[2025-01-09] MEDS: BUPRENORPHINE/NALOXONE (*CRX) 4 MG/1 MG SL FILM 2 EACH SUBLINGUAL ×2 (12:18→17:07)
[2025-01-09 14:00] VITALS: BP 109/71; PULSE 91; RESP 18; TEMP 36.2; O2SAT 99
[2025-01-09 17:34] VITALS: BP 109/64
[2025-01-09 20:13] VITALS: BP 121/91; PULSE 94; RESP 18; TEMP 36.1; O2SAT 91
[2025-01-10 05:37] VITALS: BP 121/70; PULSE 101; RESP 17; TEMP 35.8; O2SAT 90
--- NOTE | 2025-01-10 07:28 | P.PNIM_ITS ---
Progress Note: A&P Assessment and Plan (1) Adult failure to thrive: Code(s): R62.7 - Adult failure to thrive Status: Acute Assessment and Plan: In setting of history of CVA. Patient recently signed out from [facility] as she was unhappy with her care. Initially had endorsed suicidal ideation and was evaluated by the crisis seen, did not meet admission criteria. However patient is unable to care for herself at home and unable to stand without assistance, therefore requires placement. Patient adamantly denied suicidal ideation this AM. - care coordination consulted for placement - PT/OT evaluation for decreased mobility and placement (2) History of CVA (cerebrovascular accident): Code(s): Z86.73 - Personal history of transient ischemic attack (TIA), and cerebral infarction without residual deficits Status: Acute Assessment and Plan: - with chronic left-sided weakness, facial droop, left-sided neglect - reports originally diagnosed in [place] and symptoms were attributed to her drug use. Also reports recent hospitalization at [facility] - attempting to obtain records - continue ASA, Plavix (3) DM type 2 (diabetes mellitus, type 2): Qualifiers: Diabetes mellitus complication status: without complication Diabetes mellitus terminal clerk insulin use: with terminal clerk use Qualified Code(s): E11.9 - Type 2 diabetes mellitus without complications; Z79.4 - snf (current) use of insulin Code(s): E11.9 - Type 2 diabetes mellitus without complications Status: Acute Assessment and Plan: - hemoglobin A1c - 7.8 - hypoglycemia protocol - POC blood glucose ACHS - continue home Lantus 20u. Continue high dose SSI. (4) Hypertension: Code(s): I10 - Essential (primary) hypertension Status: Acute Assessment and Plan: - BP labile. Stop losartan. Continue home clonidine with hold parameters. 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 Reports she quickly relapsed. Reports being clean for about 1 month. (6) Tibial plateau fracture: Code(s): S82.143A - Displaced bicondylar fracture of unspecified tibia, initial encounter for closed fracture Status: Chronic Assessment and Plan: - patient reported history of knee fracture diagnosed in [place] - XR L knee with nonacute tibial plateau fracture - discussed with orthopedic surgery Dr. Colin - patient can be WBAT. Follow-up in 7-10 days as outpatient. - PT/OT - continue pain control (7) Depression: Code(s): F32.A - Depression, unspecified Status: Acute Assessment and Plan: - continue home Wellbutrin Plan DVT Prophylaxis: Lovenox Code Status: full code Dispo: SNF vs. inpatient rehab Subjective Date/time seen: 01/10/25 07:28 Interval history: Patient seen and examined at bedside. Feeling emotional about chronic leg weakness and her ability to rehab. Review of Systems Review of Systems: All systems reviewed & are unremarkable except as noted in HPI and below Exam Narrative: General: NAD, obese Eyes: EOMI ENT: neck supple Cardiovascular: Regular rate and rhythm Respiratory: Clear to auscultation, respirations even and unlabored on RA Gastrointestinal: Soft, non tender Genitourinary: no suprapubic tenderness Musculoskeletal: No edema Skin: warm, dry Neuro: Alert. Left-sided weakness and left-sided facial droop (chronic). Psych: Mood appropriate Objective Data Vital Signs Vital Signs: Vital Signs - 24 hr 01/09/25 14:00 01/09/25 17:34 01/09/25 20:13 Temperature 97.1 F L 96.9 F L Pulse Rate 91 94 Respiratory Rate 18 18 Blood Pressure 109/71 109/64 121/91 H Pulse Oximetry 99 91 01/10/25 05:37 Temperature 96.5 F L Pulse Rate 101 H Respiratory Rate 17 Blood Pressure 121/70 Pulse Oximetry 90 Intake/Output Intake/Output: Intake & Output 01/07/25 01/08/25 01/09/25 01/10/25 23:59 23:59 23:59 23:59 Intake Total 1416 700 780 810 Balance 3694 220 780 810 Meds/Results Medications: Active Medications Generic Name Dose Route Start Last Admin Trade Name Freq PRN Reason Stop Dose Admin Acetaminophen 650 mg 01/05/25 18:02 01/09/25 12:13 Acetaminophen 325 Mg Tablet PO 650 mg Q4H PRN Administration Mild Pain (1-3) or Fever Aspirin 81 mg 01/06/25 12:40 01/09/25 08:44 Aspirin 81 Mg Enteric Tablet PO 81 mg QAM [facility] Administration Atorvastatin Calcium 80 mg 01/07/25 09:00 01/09/25 08:44 Atorvastatin 40 Mg Tablet PO 80 mg DAILY [facility] Administration Buprenorphine/Naloxone 2 each 01/07/25 09:00 01/09/25 17:07 Buprenorphine/Naloxone (*Crx) 4 Mg/1 Mg Sl Film SUBLINGUAL 2 each TID [facility] Administration Bupropion HCl 150 mg 01/07/25 09:00 01/09/25 08:43 Bupropion Hcl Xl (24 Hr) 150 Mg Tabcr PO 150 mg DAILY [facility] Administration Clonidine HCl 0.1 mg 01/07/25 09:00 01/09/25 17:34 Clonidine Hcl 0.1 Mg Tablet PO Not Given TID MIN[facility] Clopidogrel Bisulfate 75 mg 01/06/25 12:40 01/09/25 08:44 Clopidogrel Bisulfate 75 Mg Tablet PO 75 mg QAM [facility] Administration Cyclobenzaprine HCl 10 mg 01/06/25 14:03 01/09/25 12:13 Cyclobenzaprine Hcl 10 Mg Tablet PO 10 mg Q8H PRN Administration Muscle Spasm Dextrose 12.5 gm 01/05/25 18:37 Dextrose 50% 25 Gm/50 Ml Syringe IV PUSH PRN PRN Hypoglycemia Protocol Enoxaparin Sodium 40 mg 01/08/25 09:00 01/09/25 08:45 Enoxaparin 40 Mg/0.4 Ml Syringe SUB-Q 40 mg DAILY [facility] Administration Gabapentin 800 mg 01/07/25 09:00 01/09/25 17:06 Gabapentin 400 Mg Capsule PO 800 mg TID [facility] Administration Glucagon 1 mg 01/05/25 18:37 Glucagon For Inj 1 Mg Vial IM PRN PRN Hypoglycemia Protocol Glucose 15 gm 01/05/25 18:37 Glucose Oral Gel 15 Gm Of Glucse In 37.5 Gm Tube PO PRN PRN Hypoglycemia Protocol Dextrose 1,000 mls @ 100 mls/hr 01/05/25 18:37 Dextrose 5% 1,000 Ml IVPB PRN PRN Hypoglycemia Protocol Insulin Aspart 4 - 8 units 01/06/25 08:00 01/09/25 17:06 Insulin Aspart (*Bkc) 100 Units/Ml SUB-Q Not Given [facility] Protocol Insulin Glargine 20 units 01/08/25 09:00 01/09/25 08:46 Insulin Glargine (*Bkc) 100 Units/Ml SUB-Q 20 units DAILY [facility] Administration Nicotine 1 patch 01/07/25 09:00 01/09/25 08:43 Nicotine (*Pbkc) 7 Mg Patch TRANSDERM 1 patch DAILY [facility] Administration Ondansetron HCl 4 mg 01/05/25 18:02 Ondansetron Inj 4 Mg/2 Ml Vial IV PUSH Q4H PRN Nausea Radiology Results: ITS Impressions Hip X-Ray 01/04/25 22:24 IMPRESSION: Radiographic examination of the left hip demonstrates no acute fracture or dislocation. Chest X-Ray 01/05/25 06:27 IMPRESSION: 1. No acute cardiopulmonary findings given portable technique. Head CT 01/05/25 06:33 IMPRESSION: 1. 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 Knee X-Ray 01/06/25 13:12 Impression: No acute fracture or malalignment. Hip/Pelvis X-Ray 01/06/25 13:13 Impression: No acute fracture or malalignment. Labs Labs: Laboratory Results - last 24 hr 01/09/25 01/09/25 01/09/25 08:06 11:38 16:55 POC Capillary Glucose 135 H 216 H 138 H 01/09/25 20:02 POC Capillary Glucose 202 H Quality VTE Prophylaxis VTE prophylaxis: mechanical ordered
[2025-01-10] MEDS: CLOPIDOGREL BISULFATE 75 MG TABLET PO (08:56)
[2025-01-10] MEDS: ASPIRIN 81 MG ENTERIC TABLET PO (08:56)
[2025-01-10 09:00] VITALS: BP 133/85; PULSE 94
[2025-01-10] MEDS: ATORVASTATIN 40 MG TABLET 80 MG PO (09:02)
[2025-01-10] MEDS: buPROPion HCL XL (24 HR) 150 MG TABCR PO (09:03)
[2025-01-10] MEDS: NICOTINE (*PBKC) 7 MG PATCH 1 PATCH TRANSDERM (09:07)
[2025-01-10] MEDS: INSULIN GLARGINE (*BKC) 100 UNITS/ML 20 UNITS SUB-Q (09:08)
[2025-01-10] MEDS: BUPRENORPHINE/NALOXONE (*CRX) 4 MG/1 MG SL FILM 2 EACH SUBLINGUAL ×2 (09:27→14:15)
[2025-01-10] MEDS: ACETAMINOPHEN 325 MG TABLET 650 MG PO ×2 (09:28→14:14)
--- NOTE | 2025-01-10 11:25 | PC.NURSE ---
pt states she feels off this morning. Pt states her left leg is numb and she can't feel me touching her leg. She states she can't move her foot or toes on the L side then she moved her foot up and down for the provider. Pt states she can't move her Left wrist. She wiggled her fingers on L hand a little. I made Ellie the provider aware of this and she saw her this AM.
[2025-01-10 12:02] LABS: Hematocrit 35.6 % (37.0-47.0); Hemoglobin 11.6 g/dL (12.0-15.0); Immature Granulocyte Percent A 0.4 % (0-0.5); Lymphocytes Absolute Auto 1.61 K/mm3 (0.9-3.2); Mean Corpuscular HGB Conc 32.6 g/dl (32-36); Mean Corpuscular Hemoglobin 27.0 pg (26-34); Mean Corpuscular Volume 82.8 fl (80-100); Nucleated Red Blood Cells Absolute Auto 0.000 K/mm3 (0.0-0.012); Nucleated Red Blood Cells Perc 0.0 % (0.0-0.2); Platelet Count Result 187 k/mm3 (150-375); Red Blood Count 4.30 M/mm3 (4.2-5.4); White Blood Count 5.5 K/mm3 (4.5-10.0)
[2025-01-10 12:22] LABS: Anion Gap 5 mmol/L (4-12); Blood Urea Nitrogen 10 mg/dL (7-17); Calcium 8.9 mg/dL (8.4-10.2); Carbon Dioxide 31 mmol/L (22-30); Chloride 99 mmol/L (98-107); Estimated Glomerular Filt Rate > 60; Glucose 190 mg/dL (65-110); Potassium 4.3 mmol/L (3.4-5.0); Sodium 135 mmol/L (137-145)
[2025-01-10 14:00] VITALS: BP 119/77; PULSE 92; O2SAT 98
[2025-01-10] MEDS: GABAPENTIN 400 MG CAPSULE 800 MG PO (14:15)
[2025-01-10] MEDS: ENOXAPARIN 40 MG/0.4 ML SYRINGE SUB-Q (14:16)
[2025-01-10 15:00] VITALS: BP 101/64; PULSE 84; RESP 18; TEMP 36.1; O2SAT 97
[2025-01-10 17:30] VITALS: BP 127/75; PULSE 100
[2025-01-10] MEDS: DICLOFENAC SODIUM 1% 100 GM GEL (*BKC) 1 APPLIC TOPICAL (18:08)
[2025-01-10 20:35] VITALS: BP 131/92; PULSE 93; RESP 18; TEMP 36.3; O2SAT 98
[2025-01-10] MEDS: CYCLOBENZAPRINE HCL 10 MG TABLET PO (20:37)
[2025-01-11 05:10] VITALS: BP 129/75; PULSE 81; RESP 16; TEMP 36.4; O2SAT 98
--- NOTE | 2025-01-11 08:13 | P.PNIM_ITS ---
Progress Note: A&P Assessment and Plan (1) Adult failure to thrive: Code(s): R62.7 - Adult failure to thrive Status: Acute Assessment and Plan: In setting of history of CVA. Patient recently signed out from [facility] as she was unhappy with her care. Initially had endorsed suicidal ideation and was evaluated by the crisis seen, did not meet admission criteria. However patient is unable to care for herself at home and unable to stand without assistance, therefore requires placement. Patient has now adamantly denied suicidal ideation. - PT/OT recommended SNF vs [facility]. Care coordination following. (2) History of CVA (cerebrovascular accident): Code(s): Z86.73 - Personal history of transient ischemic attack (TIA), and cerebral infarction without residual deficits Status: Acute Assessment and Plan: - with chronic left-sided weakness, facial droop, left-sided neglect - reports originally diagnosed in [place] and symptoms were attributed to her drug use. Also reports recent hospitalization at [facility]. - continue ASA, Plavix (3) DM type 2 (diabetes mellitus, type 2): Qualifiers: Diabetes mellitus complication status: without complication Diabetes mellitus continuous churn buttermaker insulin use: with retirement use Qualified Code(s): E11.9 - Type 2 diabetes mellitus without complications; Z79.4 - manager long term care (current) use of insulin Code(s): E11.9 - Type 2 diabetes mellitus without complications Status: Acute Assessment and Plan: - hemoglobin A1c - 7.8 - hypoglycemia protocol - POC blood glucose ACHS - continue Lantus. Uptitrated to 22u. High dose SSI. (4) Hypertension: Code(s): I10 - Essential (primary) hypertension Status: Acute Assessment and Plan: - BP labile. Continue home clonidine with hold parameters. 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 Reports she quickly relapsed. Reports being clean for about 1 month. (6) Tibial plateau fracture: Code(s): S82.143A - Displaced bicondylar fracture of unspecified tibia, initial encounter for closed fracture Status: Chronic Assessment and Plan: - patient reported history of knee fracture diagnosed in [place] - XR L knee with nonacute tibial plateau fracture - discussed with orthopedic surgery Dr. Colin - patient can be WBAT. Follow-up in 7-10 days as outpatient. - PT/OT - continue pain control (7) Depression: Code(s): F32.A - Depression, unspecified Status: Acute Assessment and Plan: - continue home Wellbutrin Plan DVT Prophylaxis: Lovenox Code Status: full code Dispo: SNF vs. inpatient rehab Subjective Date/time seen: 01/11/25 08:13 Interval history: Patient seen and examined at bedside. Denied acute complaints other than roommate causing her stress. Discussed plan of care. Review of Systems Review of Systems: All systems reviewed & are unremarkable except as noted in HPI and below Exam Narrative: General: NAD, obese Eyes: EOMI ENT: neck supple Cardiovascular: Regular rate and rhythm Respiratory: Clear to auscultation, respirations even and unlabored on RA Gastrointestinal: Soft, non tender Genitourinary: no suprapubic tenderness Musculoskeletal: No edema Skin: warm, dry Neuro: Alert. Left-sided weakness and left-sided facial droop (chronic). Psych: Mood appropriate Objective Data Vital Signs Vital Signs: Vital Signs - 24 hr 01/10/25 09:00 01/10/25 09:30 01/10/25 14:00 Temperature Pulse Rate 94 92 Respiratory Rate Blood Pressure 133/85 119/77 Pulse Oximetry 98 Oxygen Delivery Room Air 01/10/25 15:00 01/10/25 17:30 01/10/25 20:35 Temperature 96.9 F L 97.3 F L Pulse Rate 84 100 93 Respiratory Rate 18 18 Blood Pressure 101/64 127/75 131/92 H Pulse Oximetry 97 98 Oxygen Delivery 01/11/25 05:10 Temperature 97.6 F Pulse Rate 81 Respiratory Rate 16 Blood Pressure 129/75 Pulse Oximetry 98 Oxygen Delivery Intake/Output Intake/Output: Intake & Output 01/08/25 01/09/25 01/10/25 01/11/25 23:59 23:59 23:59 23:59 Intake Total 650 775 8828 150 Balance 810 360 9923 150 Meds/Results Medications: Active Medications Generic Name Dose Route Start Last Admin Trade Name Freq PRN Reason Stop Dose Admin Acetaminophen 650 mg 01/05/25 18:02 01/10/25 14:14 Acetaminophen 325 Mg Tablet PO 650 mg Q4H PRN Administration Mild Pain (1-3) or Fever Aspirin 81 mg 01/06/25 12:40 01/10/25 08:56 Aspirin 81 Mg Enteric Tablet PO 81 mg QAM [facility] Administration Atorvastatin Calcium 80 mg 01/07/25 09:00 01/10/25 09:02 Atorvastatin 40 Mg Tablet PO 80 mg DAILY [facility] Administration Buprenorphine/Naloxone 2 each 01/07/25 09:00 01/10/25 20:12 Buprenorphine/Naloxone (*Crx) 4 Mg/1 Mg Sl Film SUBLINGUAL Not Given TID MINH Bupropion HCl 150 mg 01/07/25 09:00 01/10/25 09:03 Bupropion Hcl Xl (24 Hr) 150 Mg Tabcr PO 150 mg DAILY [facility] Administration Clonidine HCl 0.1 mg 01/07/25 09:00 01/10/25 20:12 Clonidine Hcl 0.1 Mg Tablet PO Not Given TID MINH Clopidogrel Bisulfate 75 mg 01/06/25 12:40 01/10/25 08:56 Clopidogrel Bisulfate 75 Mg Tablet PO 75 mg QAM [facility] Administration Cyclobenzaprine HCl 10 mg 01/06/25 14:03 01/10/25 20:37 Cyclobenzaprine Hcl 10 Mg Tablet PO 10 mg Q8H PRN Administration Muscle Spasm Dextrose 12.5 gm 01/05/25 18:37 Dextrose 50% 25 Gm/50 Ml Syringe IV PUSH PRN PRN Hypoglycemia Protocol Diclofenac Sodium 1 applic 01/10/25 17:00 01/10/25 18:08 Diclofenac Sodium 1% 100 Gm Gel (*Bkc) TOPICAL 1 applic BID [facility] Administration Enoxaparin Sodium 40 mg 01/08/25 09:00 01/10/25 14:16 Enoxaparin 40 Mg/0.4 Ml Syringe SUB-Q 40 mg DAILY [facility] Administration Gabapentin 800 mg 01/07/25 09:00 01/10/25 20:12 Gabapentin 400 Mg Capsule PO Not Given TID MINH Glucagon 1 mg 01/05/25 18:37 Glucagon For Inj 1 Mg Vial IM PRN PRN Hypoglycemia Protocol Glucose 15 gm 01/05/25 18:37 Glucose Oral Gel 15 Gm Of Glucse In 37.5 Gm Tube PO PRN PRN Hypoglycemia Protocol Dextrose 1,000 mls @ 100 mls/hr 01/05/25 18:37 Dextrose 5% 1,000 Ml IVPB PRN PRN Hypoglycemia Protocol Insulin Aspart 4 - 8 units 01/06/25 08:00 01/11/25 07:50 Insulin Aspart (*Bkc) 100 Units/Ml SUB-Q Not Given TIDWM [facility] Protocol Insulin Glargine 20 units 01/08/25 09:00 01/10/25 09:08 Insulin Glargine (*Bkc) 100 Units/Ml SUB-Q 20 units DAILY [facility] Administration Nicotine 1 patch 01/07/25 09:00 01/10/25 09:07 Nicotine (*Pbkc) 7 Mg Patch TRANSDERM 1 patch DAILY [facility] Administration Ondansetron HCl 4 mg 01/05/25 18:02 Ondansetron Inj 4 Mg/2 Ml Vial IV PUSH Q4H PRN Nausea Radiology Results: ITS Impressions Hip X-Ray 01/04/25 22:24 IMPRESSION: Radiographic examination of the left hip demonstrates no acute fracture or dislocation. Chest X-Ray 01/05/25 06:27 IMPRESSION: 1. No acute cardiopulmonary findings given portable technique. Head CT 01/05/25 06:33 IMPRESSION: 1. 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 Knee X-Ray 01/06/25 13:12 Impression: No acute fracture or malalignment. Hip/Pelvis X-Ray 01/06/25 13:13 Impression: No acute fracture or malalignment. Labs Labs: Laboratory Results - last 24 hr 01/10/25 01/10/25 01/10/25 11:50 11:57 16:31 WBC 5.5 RBC 4.30 Hgb 11.6 L Hct 35.6 L MCV 82.8 MCH 27.0 MCHC 32.6 RDW 13.9 Plt Count 187 MPV 10.4 Immature Gran % (Auto) 0.4 Neut % (Auto) 60.3 Lymph % (Auto) 29.2 [place] % (Auto) 6.4 Eos % (Auto) 3.3 Baso % (Auto) 0.4 Lymph # (Auto) 1.61 [place] # (Auto) 0.4 Eos # (Auto) 0.2 Baso # (Auto) 0.0 Abs Immat Gran (auto) 0.02 Absolute Neuts (auto) 3.3 Absolute Nucleated RBC 0.000 Nucleated RBC % 0.0 Sodium 135 L Potassium 4.3 Chloride 99 Carbon Dioxide 31 H Anion Gap 5 BUN 10 Creatinine 0.80 Estim Creat Clear Calc Not Reportable Estimated GFR > 60 Glucose 190 H POC Capillary Glucose 187 H 182 H Calcium 8.9 01/10/25 01/11/25 20:34 07:45 WBC RBC Hgb Hct MCV MCH MCHC RDW Plt Count MPV Immature Gran % (Auto) Neut % (Auto) Lymph % (Auto) [place] % (Auto) Eos % (Auto) Baso % (Auto) Lymph # (Auto) [place] # (Auto) Eos # (Auto) Baso # (Auto) Abs Immat Gran (auto) Absolute Neuts (auto) Absolute Nucleated RBC Nucleated RBC % Sodium Potassium Chloride Carbon Dioxide Anion Gap BUN Creatinine Estim Creat Clear Calc Estimated GFR Glucose POC Capillary Glucose 279 H 188 H Calcium Quality VTE Prophylaxis VTE prophylaxis: mechanical ordered
--- NOTE | 2025-01-11 09:47 | PCNWS ---
Weekly nutritional screen. Patient is tolerating current diabetic diet with adequate intake 100% all meals. No weight loss reported. No nutritional recommendations at this time.
[2025-01-11] MEDS: ATORVASTATIN 40 MG TABLET 80 MG PO (10:10)
[2025-01-11] MEDS: DICLOFENAC SODIUM 1% 100 GM GEL (*BKC) 1 APPLIC TOPICAL ×2 (10:10→17:18)
[2025-01-11] MEDS: GABAPENTIN 400 MG CAPSULE 800 MG PO ×3 (10:10→17:18)
[2025-01-11] MEDS: buPROPion HCL XL (24 HR) 150 MG TABCR PO (10:11)
[2025-01-11] MEDS: NICOTINE (*PBKC) 7 MG PATCH 1 PATCH TRANSDERM (10:11)
[2025-01-11] MEDS: ENOXAPARIN 40 MG/0.4 ML SYRINGE SUB-Q (10:11)
[2025-01-11] MEDS: CLOPIDOGREL BISULFATE 75 MG TABLET PO (10:12)
[2025-01-11] MEDS: ASPIRIN 81 MG ENTERIC TABLET PO (10:12)
[2025-01-11] MEDS: BUPRENORPHINE/NALOXONE (*CRX) 4 MG/1 MG SL FILM 2 EACH SUBLINGUAL ×3 (10:15→17:18)
[2025-01-11] MEDS: INSULIN GLARGINE (*BKC) 100 UNITS/ML 22 UNITS SUB-Q (10:15)
[2025-01-11] MEDS: INSULIN ASPART (*BKC) 100 UNITS/ML SUB-Q (11:59)
[2025-01-11] MEDS: ACETAMINOPHEN 325 MG TABLET 650 MG PO (12:12)
[2025-01-11 12:16] VITALS: BP 119/79; PULSE 100; O2SAT 97
[2025-01-11 14:00] VITALS: BP 126/40; PULSE 104; RESP 19; TEMP 36.5; O2SAT 100
[2025-01-11 20:35] VITALS: BP 105/56; PULSE 73; RESP 16; TEMP 36.5; O2SAT 94
[2025-01-12 05:07] VITALS: BP 93/56; PULSE 85; RESP 16; TEMP 36.8; O2SAT 99
[2025-01-12] MEDS: ACETAMINOPHEN 325 MG TABLET 650 MG PO ×4 (05:28→20:28)
--- NOTE | 2025-01-12 08:20 | P.PNIM_ITS ---
Progress Note: A&P Assessment and Plan (1) Adult failure to thrive: Code(s): R62.7 - Adult failure to thrive Status: Acute Assessment and Plan: In setting of history of CVA. Patient recently signed out from [facility] as she was unhappy with her care. Initially had endorsed suicidal ideation and was evaluated by the crisis seen, did not meet admission criteria. However patient is unable to care for herself at home and unable to stand without assistance, therefore requires placement. Patient has now adamantly denied suicidal ideation. - PT/OT recommended SNF vs acute rehab. Care coordination following. (2) History of CVA (cerebrovascular accident): Code(s): Z86.73 - Personal history of transient ischemic attack (TIA), and cerebral infarction without residual deficits Status: Acute Assessment and Plan: - with chronic left-sided weakness, facial droop, left-sided neglect - reports originally diagnosed in [place] and symptoms were attributed to her drug use. Also reports recent hospitalization at [facility]. - continue ASA, Plavix (3) DM type 2 (diabetes mellitus, type 2): Qualifiers: Diabetes mellitus complication status: without complication Diabetes mellitus group home insulin use: with terminal worker use Qualified Code(s): E11.9 - Type 2 diabetes mellitus without complications; Z79.4 - correction (current) use of insulin Code(s): E11.9 - Type 2 diabetes mellitus without complications Status: Acute Assessment and Plan: - managed on Lantus 20 u daily at home. - hemoglobin A1c - 7.8 - hypoglycemia protocol - POC blood glucose ACHS - continue Lantus. Uptitrated to 25u daily 01/12. High dose SSI. (4) Hypertension: Code(s): I10 - Essential (primary) hypertension Status: Acute Assessment and Plan: - BP labile. Continue home clonidine with hold parameters. 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 Reports she quickly relapsed. Reports being clean for about 1 month. (6) Tibial plateau fracture: Code(s): S82.143A - Displaced bicondylar fracture of unspecified tibia, initial encounter for closed fracture Status: Chronic Assessment and Plan: - patient reported history of knee fracture diagnosed in [place] - XR L knee with nonacute tibial plateau fracture - discussed with orthopedic surgery Dr. Colin - patient can be WBAT. Follow-up in 7-10 days as outpatient. - PT/OT - continue pain control (7) Depression: Code(s): F32.A - Depression, unspecified Status: Acute Assessment and Plan: - continue home Wellbutrin Plan DVT Prophylaxis: Lovenox Code Status: full code Dispo: SNF vs. [facility] Subjective Date/time seen: 01/12/25 08:20 Interval history: Patient seen and examined up in chair. Feeling frustrated with insurance company. Denied acute complaints. Review of Systems Review of Systems: All systems reviewed & are unremarkable except as noted in HPI and below Exam Narrative: General: NAD, obese Eyes: EOMI ENT: neck supple Cardiovascular: Regular rate and rhythm Respiratory: Clear to auscultation, respirations even and unlabored on RA Gastrointestinal: Soft, non tender Genitourinary: no suprapubic tenderness Musculoskeletal: No edema Skin: warm, dry Neuro: Alert. Left-sided weakness and left-sided facial droop (chronic). Psych: Mood appropriate Objective Data Vital Signs Vital Signs: Vital Signs - 24 hr 01/11/25 12:16 01/11/25 14:00 01/11/25 20:35 Temperature 97.7 F 97.7 F Pulse Rate 100 104 H 73 Respiratory Rate 19 16 Blood Pressure 119/79 126/40 L 105/56 L Pulse Oximetry 97 100 94 Oxygen Delivery 01/12/25 05:07 01/12/25 07:35 Temperature 98.3 F Pulse Rate 85 Respiratory Rate 16 Blood Pressure 93/56 L Pulse Oximetry 99 Oxygen Delivery Room Air Intake/Output Intake/Output: Intake & Output 01/09/25 01/10/25 01/11/25 01/12/25 23:59 23:59 23:59 23:59 Intake Total 780 1530 1386 340 Output Total 3 Balance 780 1530 1383 340 Meds/Results Medications: Active Medications Generic Name Dose Route Start Last Admin Trade Name Freq PRN Reason Stop Dose Admin Acetaminophen 650 mg 01/05/25 18:02 01/12/25 05:28 Acetaminophen 325 Mg Tablet PO 650 mg Q4H PRN Administration Mild Pain (1-3) or Fever Aspirin 81 mg 01/06/25 12:40 01/11/25 10:12 Aspirin 81 Mg Enteric Tablet PO 81 mg QAM [facility] Administration Atorvastatin Calcium 80 mg 01/07/25 09:00 01/11/25 10:10 Atorvastatin 40 Mg Tablet PO 80 mg DAILY [facility] Administration Buprenorphine/Naloxone 2 each 01/07/25 09:00 01/11/25 17:18 Buprenorphine/Naloxone (*Crx) 4 Mg/1 Mg Sl Film SUBLINGUAL 2 each TID [facility] Administration Bupropion HCl 150 mg 01/07/25 09:00 01/11/25 10:11 Bupropion Hcl Xl (24 Hr) 150 Mg Tabcr PO 150 mg DAILY [facility] Administration Clonidine HCl 0.1 mg 01/07/25 09:00 01/11/25 17:18 Clonidine Hcl 0.1 Mg Tablet PO 0.1 mg TID MIN[facility] Administration Clopidogrel Bisulfate 75 mg 01/06/25 12:40 01/11/25 10:12 Clopidogrel Bisulfate 75 Mg Tablet PO 75 mg QAM [facility] Administration Cyclobenzaprine HCl 10 mg 01/06/25 14:03 01/10/25 20:37 Cyclobenzaprine Hcl 10 Mg Tablet PO 10 mg Q8H PRN Administration Muscle Spasm Dextrose 12.5 gm 01/05/25 18:37 Dextrose 50% 25 Gm/50 Ml Syringe IV PUSH PRN PRN Hypoglycemia Protocol Diclofenac Sodium 1 applic 01/10/25 17:00 01/11/25 17:18 Diclofenac Sodium 1% 100 Gm Gel (*Bkc) TOPICAL 1 applic BID [facility] Administration Enoxaparin Sodium 40 mg 01/08/25 09:00 01/11/25 10:11 Enoxaparin 40 Mg/0.4 Ml Syringe SUB-Q 40 mg DAILY [facility] Administration Gabapentin 800 mg 01/07/25 09:00 01/11/25 17:18 Gabapentin 400 Mg Capsule PO 800 mg TID [facility] Administration Glucagon 1 mg 01/05/25 18:37 Glucagon For Inj 1 Mg Vial IM PRN PRN Hypoglycemia Protocol Glucose 15 gm 01/05/25 18:37 Glucose Oral Gel 15 Gm Of Glucse In 37.5 Gm Tube PO PRN PRN Hypoglycemia Protocol Dextrose 1,000 mls @ 100 mls/hr 01/05/25 18:37 Dextrose 5% 1,000 Ml IVPB PRN PRN Hypoglycemia Protocol Insulin Aspart 4 - 8 units 01/06/25 08:00 01/11/25 16:19 Insulin Aspart (*Bkc) 100 Units/Ml SUB-Q Not Given TIDWM [facility] Protocol Insulin Glargine 25 units 01/12/25 09:00 Insulin Glargine (*Bkc) 100 Units/Ml SUB-Q DAILY [facility] Nicotine 1 patch 01/07/25 09:00 01/11/25 10:11 Nicotine (*Pbkc) 7 Mg Patch TRANSDERM 1 patch DAILY [facility] Administration Ondansetron HCl 4 mg 01/05/25 18:02 Ondansetron Inj 4 Mg/2 Ml Vial IV PUSH Q4H PRN Nausea Senna/Docusate Sodium 1 tab 01/11/25 21:00 01/11/25 22:58 Senna/Docusate Sodium Tablet PO Not Given HS [facility] Radiology Results: ITS Impressions Hip X-Ray 01/04/25 22:24 IMPRESSION: Radiographic examination of the left hip demonstrates no acute fracture or dislocation. Chest X-Ray 01/05/25 06:27 IMPRESSION: 1. No acute cardiopulmonary findings given portable technique. Head CT 01/05/25 06:33 IMPRESSION: 1. 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 Knee X-Ray 01/06/25 13:12 Impression: No acute fracture or malalignment. Hip/Pelvis X-Ray 01/06/25 13:13 Impression: No acute fracture or malalignment. Labs Labs: Laboratory Results - last 24 hr 01/11/25 01/11/25 01/11/25 11:39 16:04 21:36 POC Capillary Glucose 255 H 181 H 235 H 01/12/25 07:34 POC Capillary Glucose 316 H Quality VTE Prophylaxis VTE prophylaxis: mechanical ordered
[2025-01-12] MEDS: INSULIN ASPART (*BKC) 100 UNITS/ML SUB-Q ×2 (09:47→12:09)
[2025-01-12] MEDS: INSULIN GLARGINE (*BKC) 100 UNITS/ML 25 UNITS SUB-Q (09:50)
[2025-01-12] MEDS: DICLOFENAC SODIUM 1% 100 GM GEL (*BKC) 1 APPLIC TOPICAL ×2 (09:55→16:55)
[2025-01-12] MEDS: NICOTINE (*PBKC) 7 MG PATCH 1 PATCH TRANSDERM (09:55)
[2025-01-12] MEDS: BUPRENORPHINE/NALOXONE (*CRX) 4 MG/1 MG SL FILM 2 EACH SUBLINGUAL ×3 (09:56→16:55)
[2025-01-12] MEDS: ATORVASTATIN 40 MG TABLET 80 MG PO (09:56)
[2025-01-12] MEDS: GABAPENTIN 400 MG CAPSULE 800 MG PO ×3 (09:56→16:55)
[2025-01-12] MEDS: ASPIRIN 81 MG ENTERIC TABLET PO (09:56)
[2025-01-12] MEDS: CLOPIDOGREL BISULFATE 75 MG TABLET PO (09:56)
[2025-01-12] MEDS: buPROPion HCL XL (24 HR) 150 MG TABCR PO (09:56)
[2025-01-12] MEDS: ENOXAPARIN 40 MG/0.4 ML SYRINGE SUB-Q (09:58)
[2025-01-12 14:00] VITALS: BP 105/60; PULSE 91; RESP 20; TEMP 36.3; O2SAT 99
[2025-01-12] MEDS: SENNA/DOCUSATE SODIUM TABLET 1 TAB PO (20:28)
[2025-01-12 20:55] VITALS: BP 107/63; PULSE 74; RESP 14; TEMP 36.9; O2SAT 99
[2025-01-13 05:17] VITALS: BP 94/54; PULSE 64; RESP 14; TEMP 36.3; O2SAT 96
[2025-01-13] MEDS: ACETAMINOPHEN 325 MG TABLET 650 MG PO ×2 (08:10→20:54)
[2025-01-13] MEDS: NICOTINE (*PBKC) 7 MG PATCH 1 PATCH TRANSDERM (08:11)
[2025-01-13] MEDS: ATORVASTATIN 40 MG TABLET 80 MG PO (08:11)
[2025-01-13] MEDS: ASPIRIN 81 MG ENTERIC TABLET PO (08:11)
[2025-01-13] MEDS: buPROPion HCL XL (24 HR) 150 MG TABCR PO (08:11)
[2025-01-13] MEDS: ENOXAPARIN 40 MG/0.4 ML SYRINGE SUB-Q (08:11)
[2025-01-13] MEDS: GABAPENTIN 400 MG CAPSULE 800 MG PO ×3 (08:11→16:12)
[2025-01-13] MEDS: CLOPIDOGREL BISULFATE 75 MG TABLET PO (08:11)
[2025-01-13] MEDS: BUPRENORPHINE/NALOXONE (*CRX) 4 MG/1 MG SL FILM 2 EACH SUBLINGUAL ×3 (08:11→16:12)
[2025-01-13] MEDS: INSULIN ASPART (*BKC) 100 UNITS/ML SUB-Q ×2 (08:12→12:08)
[2025-01-13] MEDS: INSULIN GLARGINE (*BKC) 100 UNITS/ML 25 UNITS SUB-Q (08:12)
[2025-01-13] MEDS: DICLOFENAC SODIUM 1% 100 GM GEL (*BKC) 1 APPLIC TOPICAL ×2 (08:31→16:13)
[2025-01-13 12:00] VITALS: BP 101/76; PULSE 81; O2SAT 97
--- NOTE | 2025-01-13 13:14 | P.PNIM_ITS ---
Progress Note: A&P Assessment and Plan (1) Adult failure to thrive: Code(s): R62.7 - Adult failure to thrive Status: Acute Assessment and Plan: In setting of history of CVA. Patient recently signed out from [facility] as she was unhappy with her care. Initially had endorsed suicidal ideation and was evaluated by the crisis seen, did not meet admission criteria. However patient is unable to care for herself at home and unable to stand without assistance, therefore requires placement. Patient has now adamantly denied suicidal ideation. - PT/OT recommended SNF vs acute rehab. Care coordination following. - still pending placement (2) History of CVA (cerebrovascular accident): Code(s): Z86.73 - Personal history of transient ischemic attack (TIA), and cerebral infarction without residual deficits Status: Acute Assessment and Plan: - with chronic left-sided weakness, facial droop, left-sided neglect - reports originally diagnosed in [place] and symptoms were attributed to her drug use. Also reports recent hospitalization at [facility]. - continue ASA, Plavix (3) DM type 2 (diabetes mellitus, type 2): Qualifiers: Diabetes mellitus retirement insulin use: with retirement use Diabetes mellitus complication status: without complication Qualified Code(s): E11.9 - Type 2 diabetes mellitus without complications; Z79.4 - superintendent terminal (current) use of insulin Code(s): E11.9 - Type 2 diabetes mellitus without complications Status: Acute Assessment and Plan: - managed on Lantus 20 u daily at home. - hemoglobin A1c - 7.8 - hypoglycemia protocol - POC blood glucose ACHS - continue Lantus. Uptitrated to 25u daily 01/12. High dose SSI. (4) Hypertension: Code(s): I10 - Essential (primary) hypertension Status: Acute Assessment and Plan: - BP labile. Continue home clonidine with hold parameters. 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 Reports she quickly relapsed. Reports being clean for about 1 month. (6) Tibial plateau fracture: Code(s): S82.143A - Displaced bicondylar fracture of unspecified tibia, initial encounter for closed fracture Status: Chronic Assessment and Plan: - patient reported history of knee fracture diagnosed in [place] - XR L knee with nonacute tibial plateau fracture - discussed with orthopedic surgery Dr. Colin - patient can be WBAT. Follow-up in 7-10 days as outpatient. - PT/OT - continue pain control (7) Depression: Code(s): F32.A - Depression, unspecified Status: Acute Assessment and Plan: - continue home Wellbutrin Plan DVT Prophylaxis: Lovenox Code Status: full code Dispo: SNF vs. [facility] Subjective Date/time seen: 01/13/25 13:14 Interval history: Patient seen and examined up in chair. Denied acute complaints. No acute overnight events, still pending placement. Review of Systems Review of Systems: All systems reviewed & are unremarkable except as noted in HPI and below Exam Narrative: General: NAD, obese Eyes: EOMI ENT: neck supple Cardiovascular: Regular rate and rhythm Respiratory: Clear to auscultation, respirations even and unlabored on RA Gastrointestinal: Soft, non tender Genitourinary: no suprapubic tenderness Musculoskeletal: No edema Skin: warm, dry Neuro: Alert. Left-sided weakness and left-sided facial droop (chronic). Psych: Mood appropriate Const: General: comfortable and no acute distress Other: , female, nontoxic appearance HENMT: Face/Nose/Sinus: Normal nares present Mouth: Yes moist mucous membranes Eyes: General: appearance normal, both eyes and all related structures Sclera: sclerae normal Pupils: Equal, round and reactive pupils present EOM: EOMs intact bilaterally Resp: Effort & Inspection: normal respiratory effort Auscultation: clear to auscultation bilaterally Cardio: Rate: regular rate Rhythm: regular rhythm Other: S1-S2 present without murmur, rub, ectopy GI: Other: Abdomen soft, nondistended, nontender. Normoactive bowel sounds in all quadrants. Skin: General skin exam: normal color and no rashes or lesions noted Wound s: no wounds Neuro: Cranial nerves: Yes Equal, round and reactive pupils present Speech: normal speech Motor exam (neuro): 5/5 motor strength present throughout Sensory Exam: normal sensation Other: A&O x4 Extrem: General: normal to inspection Psych: Mental Status: mental status grossly normal Affect: normal affect Other: Fair to good insight and judgment, denying SI or HI at present. No agitation, flight of ideas, or issues with behavior noted. Objective Data Vital Signs Vital Signs: Vital Signs - 24 hr 01/12/25 14:00 01/12/25 20:28 01/12/25 20:55 Temperature 97.3 F L 98.5 F Pulse Rate 91 74 Respiratory Rate 20 14 Blood Pressure 105/60 107/63 Pulse Oximetry 99 99 Oxygen Delivery Room Air 01/13/25 05:17 01/13/25 08:00 01/13/25 12:00 Temperature 97.3 F L Pulse Rate 64 81 Respiratory Rate 14 Blood Pressure 94/54 L 101/76 Pulse Oximetry 96 97 Oxygen Delivery Room Air Intake/Output Intake/Output: Intake & Output 01/10/25 01/11/25 01/12/25 01/13/25 23:59 23:59 23:59 23:59 Intake Total 1530 1386 2448 222 Output Total 3 Balance 1530 1383 2448 222 Meds/Results Medications: Active Medications Generic Name Dose Route Start Last Admin Trade Name Freq PRN Reason Stop Dose Admin Acetaminophen 650 mg 01/05/25 18:02 01/13/25 08:10 Acetaminophen 325 Mg Tablet PO 650 mg Q4H PRN Administration Mild Pain (1-3) or Fever Aspirin 81 mg 01/06/25 12:40 01/13/25 08:11 Aspirin 81 Mg Enteric Tablet PO 81 mg QAM MINH Administration Atorvastatin Calcium 80 mg 01/07/25 09:00 01/13/25 08:11 Atorvastatin 40 Mg Tablet PO 80 mg DAILY MINH Administration Buprenorphine/Naloxone 2 each 01/07/25 09:00 01/13/25 12:08 Buprenorphine/Naloxone (*Crx) 4 Mg/1 Mg Sl Film SUBLINGUAL 2 each TID MINH Administration Bupropion HCl 150 mg 01/07/25 09:00 01/13/25 08:11 Bupropion Hcl Xl (24 Hr) 150 Mg Tabcr PO 150 mg DAILY MINH Administration Clonidine HCl 0.1 mg 01/07/25 09:00 01/13/25 12:16 Clonidine Hcl 0.1 Mg Tablet PO Not Given TID MINH Clopidogrel Bisulfate 75 mg 01/06/25 12:40 01/13/25 08:11 Clopidogrel Bisulfate 75 Mg Tablet PO 75 mg QAM MINH Administration Cyclobenzaprine HCl 10 mg 01/06/25 14:03 01/10/25 20:37 Cyclobenzaprine Hcl 10 Mg Tablet PO 10 mg Q8H PRN Administration Muscle Spasm Dextrose 12.5 gm 01/05/25 18:37 Dextrose 50% 25 Gm/50 Ml Syringe IV PUSH PRN PRN Hypoglycemia Protocol Diclofenac Sodium 1 applic 01/10/25 17:00 01/13/25 08:31 Diclofenac Sodium 1% 100 Gm Gel (*Bkc) TOPICAL 1 applic BID MINH Administration Enoxaparin Sodium 40 mg 01/08/25 09:00 01/13/25 08:11 Enoxaparin 40 Mg/0.4 Ml Syringe SUB-Q 40 mg DAILY MINH Administration Gabapentin 800 mg 01/07/25 09:00 01/13/25 12:07 Gabapentin 400 Mg Capsule PO 800 mg TID MINH Administration Glucagon 1 mg 01/05/25 18:37 Glucagon For Inj 1 Mg Vial IM PRN PRN Hypoglycemia Protocol Glucose 15 gm 01/05/25 18:37 Glucose Oral Gel 15 Gm Of Glucse In 37.5 Gm Tube PO PRN PRN Hypoglycemia Protocol Dextrose 1,000 mls @ 100 mls/hr 01/05/25 18:37 Dextrose 5% 1,000 Ml IVPB PRN PRN Hypoglycemia Protocol Insulin Aspart 4 - 8 units 01/06/25 08:00 01/13/25 12:08 Insulin Aspart (*Bkc) 100 Units/Ml SUB-Q 4 units TIDWM MINH Administration Protocol Insulin Glargine 25 units 01/12/25 09:00 01/13/25 08:12 Insulin Glargine (*Bkc) 100 Units/Ml SUB-Q 25 units DAILY MNIH Administration Nicotine 1 patch 01/07/25 09:00 01/13/25 08:11 Nicotine (*Pbkc) 7 Mg Patch TRANSDERM 1 patch DAILY MINH Administration Ondansetron HCl 4 mg 01/05/25 18:02 Ondansetron Inj 4 Mg/2 Ml Vial IV PUSH Q4H PRN Nausea Senna/Docusate Sodium 1 tab 01/11/25 21:00 01/12/25 20:28 Senna/Docusate Sodium Tablet PO 1 tab HS MINH Administration Radiology Results: ITS Impressions Hip X-Ray 01/04/25 22:24 IMPRESSION: Radiographic examination of the left hip demonstrates no acute fracture or dislocation. Chest X-Ray 01/05/25 06:27 IMPRESSION: 1. No acute cardiopulmonary findings given portable technique. Head CT 01/05/25 06:33 IMPRESSION: 1. 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 Knee X-Ray 01/06/25 13:12 Impression: No acute fracture or malalignment. Hip/Pelvis X-Ray 01/06/25 13:13 Impression: No acute fracture or malalignment. Labs Labs: Laboratory Results - last 24 hr 01/12/25 01/12/25 01/13/25 16:25 21:03 07:31 POC Capillary Glucose 168 H 253 H 223 H 01/13/25 11:45 POC Capillary Glucose 208 H Quality VTE Prophylaxis VTE prophylaxis: mechanical ordered
[2025-01-13 14:00] VITALS: BP 113/63; PULSE 71; RESP 15; TEMP 36.2; O2SAT 99
[2025-01-13] MEDS: CYCLOBENZAPRINE HCL 10 MG TABLET PO (21:11)
[2025-01-13 21:46] VITALS: BP 112/61; PULSE 69; RESP 12; TEMP 36.6; O2SAT 98
[2025-01-14] VITALS (7 sets, daily range): BP systolic 103–119; BP diastolic 60–90; PULSE 63–87; RESP 12–18; TEMP 36.1–36.4; O2SAT 95–99
--- NOTE | 2025-01-14 07:40 | P.PNIM_ITS ---
Progress Note: A&P Assessment and Plan (1) Adult failure to thrive: Code(s): R62.7 - Adult failure to thrive Status: Acute Assessment and Plan: In setting of history of CVA. Patient recently signed out from [facility] as she was unhappy with her care. Initially had endorsed suicidal ideation and was evaluated by the crisis seen, did not meet admission criteria. However patient is unable to care for herself at home and unable to stand without assistance, therefore requires placement. Patient has now adamantly denied suicidal ideation. - PT/OT recommended SNF vs acute rehab. Care coordination following. - still pending placement (2) History of CVA (cerebrovascular accident): Code(s): Z86.73 - Personal history of transient ischemic attack (TIA), and cerebral infarction without residual deficits Status: Acute Assessment and Plan: - with chronic left-sided weakness, facial droop, left-sided neglect - reports originally diagnosed in [place] and symptoms were attributed to her drug use. Also reports recent hospitalization at [facility]. - continue ASA, Plavix (3) DM type 2 (diabetes mellitus, type 2): Qualifiers: Diabetes mellitus complication status: without complication Diabetes mellitus keno terminal operator insulin use: with correction use Qualified Code(s): E11.9 - Type 2 diabetes mellitus without complications; Z79.4 - supervisor intermediates (current) use of insulin Code(s): E11.9 - Type 2 diabetes mellitus without complications Status: Acute Assessment and Plan: - managed on Lantus 20 u daily at home. - hemoglobin A1c - 7.8 - hypoglycemia protocol - POC blood glucose ACHS - continue Lantus. Uptitrated to 25u daily 01/12. High dose SSI. (4) Hypertension: Code(s): I10 - Essential (primary) hypertension Status: Acute Assessment and Plan: - BP labile. Continue home clonidine with hold parameters. 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 Reports she quickly relapsed. Reports being clean for about 1 month. (6) Tibial plateau fracture: Code(s): S82.143A - Displaced bicondylar fracture of unspecified tibia, initial encounter for closed fracture Status: Chronic Assessment and Plan: - patient reported history of knee fracture diagnosed in [place] - XR L knee with nonacute tibial plateau fracture - discussed with orthopedic surgery Dr. Colin - patient can be WBAT. Follow-up in 7-10 days as outpatient. - PT/OT - continue pain control (7) Depression: Code(s): F32.A - Depression, unspecified Status: Acute Assessment and Plan: - continue home Wellbutrin Plan DVT Prophylaxis: Lovenox Code Status: full code Dispo: SNF vs. [facility] Subjective Date/time seen: 01/14/25 07:40 Interval history: Patient seen and examined up in chair. No overnight changes. Denied acute complaints. No acute overnight events, still pending placement. Review of Systems Review of Systems: All systems reviewed & are unremarkable except as noted in HPI and below Exam Narrative: General: NAD, obese Eyes: EOMI ENT: neck supple Cardiovascular: Regular rate and rhythm Respiratory: Clear to auscultation, respirations even and unlabored on RA Gastrointestinal: Soft, non tender Genitourinary: no suprapubic tenderness Musculoskeletal: No edema Skin: warm, dry Neuro: Alert. Left-sided weakness and left-sided facial droop (chronic). Psych: Mood appropriate Const: General: comfortable and no acute distress Other: , female, nontoxic appearance HENMT: Face/Nose/Sinus: Normal nares present Mouth: Yes moist mucous membranes Eyes: General: appearance normal, both eyes and all related structures Sclera: sclerae normal Pupils: Equal, round and reactive pupils present EOM: EOMs intact bilaterally Resp: Effort & Inspection: normal respiratory effort Auscultation: clear to auscultation bilaterally Cardio: Rate: regular rate Rhythm: regular rhythm Other: S1-S2 present without murmur, rub, ectopy GI: Other: Abdomen soft, nondistended, nontender. Normoactive bowel sounds in all quadrants. Skin: General skin exam: normal color and no rashes or lesions noted Wounds: no wounds Neuro: Cranial nerves: Yes Equal, round and reactive pupils present Speech: normal speech Motor exam (neuro): 5/5 motor strength present throughout Sensory Exam: normal sensation Other: A&O x4 Extrem: General: normal to inspection Psych: Mental Status: mental status grossly normal Affect: normal affect Other: Fair to good insight and judgment, denying SI or HI at present. No agitation, flight of ideas, or issues with behavior noted. Objective Data Vital Signs Vital Signs: Vital Signs - 24 hr 01/13/25 08:00 01/13/25 12:00 01/13/25 14:00 Temperature 97.1 F L Pulse Rate 81 71 Respiratory Rate 15 Blood Pressure 101/76 113/63 Pulse Oximetry 97 99 Oxygen Delivery Room Air 01/13/25 20:54 01/13/25 21:46 01/14/25 04:36 Temperature 97.8 F 97.6 F Pulse Rate 69 63 Respiratory Rate 12 12 Blood Pressure 112/61 104/68 Pulse Oximetry 98 97 Oxygen Delivery Room Air Intake/Output Intake/Output: Intake & Output 01/11/25 01/12/25 01/13/25 01/14/25 23:59 23:59 23:59 23:59 Intake Total 1386 2448 1402 350 Output Total 3 Balance 1383 2448 1402 350 Meds/Results Medications: Active Medications Generic Name Dose Route Start Last Admin Trade Name Freq PRN Reason Stop Dose Admin Acetaminophen 650 mg 01/05/25 18:02 01/13/25 20:54 Acetaminophen 325 Mg Tablet PO 650 mg Q4H PRN Administration Mild Pain (1-3) or Fever Aspirin 81 mg 01/06/25 12:40 01/13/25 08:11 Aspirin 81 Mg Enteric Tablet PO 81 mg QAM MINH Administration Atorvastatin Calcium 80 mg 01/07/25 09:00 01/13/25 08:11 Atorvastatin 40 Mg Tablet PO 80 mg DAILY MINH Administration Buprenorphine/Naloxone 2 each 01/07/25 09:00 01/13/25 16:12 Buprenorphine/Naloxone (*Crx) 4 Mg/1 Mg Sl Film SUBLINGUAL 2 each TID MINH Administration Bupropion HCl 150 mg 01/07/25 09:00 01/13/25 08:11 Bupropion Hcl Xl (24 Hr) 150 Mg Tabcr PO 150 mg DAILY MINH Administration Clonidine HCl 0.1 mg 01/07/25 09:00 01/13/25 16:17 Clonidine Hcl 0.1 Mg Tablet PO 0.1 mg TID MINH Administration Clopidogrel Bisulfate 75 mg 01/06/25 12:40 01/13/25 08:11 Clopidogrel Bisulfate 75 Mg Tablet PO 75 mg QAM MINH Administration Cyclobenzaprine HCl 10 mg 01/06/25 14:03 01/13/25 21:11 Cyclobenzaprine Hcl 10 Mg Tablet PO 10 mg Q8H PRN Administration Muscle Spasm Dextrose 12.5 gm 01/05/25 18:37 Dextrose 50% 25 Gm/50 Ml Syringe IV PUSH PRN PRN Hypoglycemia Protocol Diclofenac Sodium 1 applic 01/10/25 17:00 01/13/25 16:13 Diclofenac Sodium 1% 100 Gm Gel (*Bkc) TOPICAL 1 applic BID MINH Administration Enoxaparin Sodium 40 mg 01/08/25 09:00 01/13/25 08:11 Enoxaparin 40 Mg/0.4 Ml Syringe SUB-Q 40 mg DAILY MINH Administration Gabapentin 800 mg 01/07/25 09:00 01/13/25 16:12 Gabapentin 400 Mg Capsule PO 800 mg TID MINH Administration Glucagon 1 mg 01/05/25 18:37 Glucagon For Inj 1 Mg Vial IM PRN PRN Hypoglycemia Protocol Glucose 15 gm 01/05/25 18:37 Glucose Oral Gel 15 Gm Of Glucse In 37.5 Gm Tube PO PRN PRN Hypoglycemia Protocol Dextrose 1,000 mls @ 100 mls/hr 01/05/25 18:37 Dextrose 5% 1,000 Ml IVPB PRN PRN Hypoglycemia Protocol Insulin Aspart 4 - 8 units 01/06/25 08:00 01/13/25 17:06 Insulin Aspart (*Bkc) 100 Units/Ml SUB-Q Not Given TIDWM [facility] Protocol Insulin Glargine 25 units 01/12/25 09:00 01/13/25 08:12 Insulin Glargine (*Bkc) 100 Units/Ml SUB-Q 25 units DAILY MINH Administration Nicotine 1 patch 01/07/25 09:00 01/13/25 08:11 Nicotine (*Pbkc) 7 Mg Patch TRANSDERM 1 patch DAILY MINH Administration Ondansetron HCl 4 mg 01/05/25 18:02 Ondansetron Inj 4 Mg/2 Ml Vial IV PUSH Q4H PRN Nausea Senna/Docusate Sodium 1 tab 01/11/25 21:00 01/13/25 20:53 Senna/Docusate Sodium Tablet PO Not Given HS MINH Radiology Results: ITS Impressions Hip X-Ray 01/04/25 22:24 IMPRESSION: Radiographic examination of the left hip demonstrates no acute fracture or dislocation. Chest X-Ray 01/05/25 06:27 IMPRESSION: 1. No acute cardiopulmonary findings given portable technique. Head CT 01/05/25 06:33 IMPRESSION: 1. 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 Knee X-Ray 01/06/25 13:12 Impression: No acute fracture or malalignment. Hip/Pelvis X-Ray 01/06/25 13:13 Impression: No acute fracture or malalignment. Labs Labs: Laboratory Results - last 24 hr 01/13/25 01/13/25 01/13/25 11:45 16:47 20:57 POC Capillary Glucose 208 H 148 H 255 H Quality VTE Prophylaxis VTE prophylaxis: mechanical ordered
[2025-01-14] MEDS: ATORVASTATIN 40 MG TABLET 80 MG PO (09:42)
[2025-01-14] MEDS: ASPIRIN 81 MG ENTERIC TABLET PO (09:42)
[2025-01-14] MEDS: NICOTINE (*PBKC) 7 MG PATCH 1 PATCH TRANSDERM (09:42)
[2025-01-14] MEDS: CLOPIDOGREL BISULFATE 75 MG TABLET PO (09:42)
[2025-01-14] MEDS: ENOXAPARIN 40 MG/0.4 ML SYRINGE SUB-Q (09:43)
[2025-01-14] MEDS: GABAPENTIN 400 MG CAPSULE 800 MG PO ×3 (09:43→16:15)
[2025-01-14] MEDS: BUPRENORPHINE/NALOXONE (*CRX) 4 MG/1 MG SL FILM 2 EACH SUBLINGUAL ×3 (09:43→16:15)
[2025-01-14] MEDS: buPROPion HCL XL (24 HR) 150 MG TABCR PO (09:44)
[2025-01-14] MEDS: INSULIN GLARGINE (*BKC) 100 UNITS/ML 25 UNITS SUB-Q (09:44)
[2025-01-14] MEDS: DICLOFENAC SODIUM 1% 100 GM GEL (*BKC) 1 APPLIC TOPICAL ×2 (09:45→16:23)
[2025-01-14] MEDS: INSULIN ASPART (*BKC) 100 UNITS/ML SUB-Q (12:09)
[2025-01-14] MEDS: ACETAMINOPHEN 325 MG TABLET 650 MG PO ×2 (13:30→21:50)
[2025-01-14] MEDS: CYCLOBENZAPRINE HCL 10 MG TABLET PO (21:50)
[2025-01-15 06:00] VITALS: BP 114/68; PULSE 65; RESP 12; TEMP 36.4; O2SAT 94
--- NOTE | 2025-01-15 07:45 | P.PNIM_ITS ---
Progress Note: A&P Assessment and Plan (1) Adult failure to thrive: Code(s): R62.7 - Adult failure to thrive Status: Acute Assessment and Plan: In setting of history of CVA. Patient recently signed out from [employer] as she was unhappy with her care. Initially had endorsed suicidal ideation and was evaluated by the crisis seen, did not meet admission criteria. However patient is unable to care for herself at home and unable to stand without assistance, therefore requires placement. Patient has now adamantly denied suicidal ideation. - PT/OT recommended SNF vs acute rehab. Care coordination following. - still pending placement (2) History of CVA (cerebrovascular accident): Code(s): Z86.73 - Personal history of transient ischemic attack (TIA), and cerebral infarction without residual deficits Status: Acute Assessment and Plan: - with chronic left-sided weakness, facial droop, left-sided neglect - reports originally diagnosed in [place] and symptoms were attributed to her drug use. Also reports recent hospitalization at [facility]. - continue ASA, Plavix (3) DM type 2 (diabetes mellitus, type 2): Qualifiers: Diabetes mellitus complication status: without complication Diabetes mellitus intermediate designer insulin use: with chcf use Qualified Code(s): E11.9 - Type 2 diabetes mellitus without complications; Z79.4 - intermediate designer (current) use of insulin Code(s): E11.9 - Type 2 diabetes mellitus without complications Status: Acute Assessment and Plan: - managed on Lantus 20 u daily at home. - hemoglobin A1c - 7.8 - hypoglycemia protocol - POC blood glucose ACHS - continue Lantus. Uptitrated to 25u daily 01/12. High dose SSI. (4) Hypertension: Code(s): I10 - Essential (primary) hypertension Status: Acute Assessment and Plan: - BP labile. Continue home clonidine with hold parameters. 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 Reports she quickly relapsed. Reports being clean for about 1 month. (6) Tibial plateau fracture: Code(s): S82.143A - Displaced bicondylar fracture of unspecified tibia, initial encounter for closed fracture Status: Chronic Assessment and Plan: - patient reported history of knee fracture diagnosed in [place] - XR L knee with nonacute tibial plateau fracture - discussed with orthopedic surgery Dr. Colin - patient can be WBAT. Follow-up in 7-10 days as outpatient. - PT/OT - continue pain control (7) Depression: Code(s): F32.A - Depression, unspecified Status: Acute Assessment and Plan: - continue home Wellbutrin Plan DVT Prophylaxis: Lovenox Code Status: full code Dispo: SNF vs. [facility] Subjective Date/time seen: 01/15/25 07:45 Interval history: No acute overnight events. Patient seen and examined up in chair. Denied acute complaints. No acute overnight events, still pending placement. Review of Systems Review of Systems: All systems reviewed & are unremarkable except as noted in HPI and below Exam Narrative: General: NAD, obese Eyes: EOMI ENT: neck supple Cardiovascular: Regular rate and rhythm Respiratory: Clear to auscultation, respirations even and unlabored on RA Gastrointestinal: Soft, non tender Genitourinary: no suprapubic tenderness Musculoskeletal: No edema Skin: warm, dry Neuro: Alert. Left-sided weakness and left-sided facial droop (chronic). Psych: Mood appropriate Const: General: comfortable and no acute distress Other: , female, nontoxic appearance HENMT: Face/Nose/Sinus: Normal nares present Mouth: Yes moist mucous membranes Eyes: General: appearance normal, both eyes and all related structures Sclera: sclerae normal Pupils: Equal, round and reactive pupils present EOM: EOMs intact bilaterally Resp: Effort & Inspection: normal respiratory effort Auscultation: clear to auscultation bilaterally Cardio: Rate: regular rate Rhythm: regular rhythm Other: S1-S2 present without murmur, rub, ectopy GI: Other: Abdomen soft, nondistended, nontender. Normoactive bowel sounds in all quadrants. Skin: General skin exam: normal color and no rashes or lesions noted Wounds: no wounds Neuro: Cranial nerves: Yes Equal, round and reactive pupils present Speech: normal speech Motor exam (neuro): 5/5 motor strength present throughout Sensory Exam: normal sensation Other: A&O x4 Extrem: General: normal to inspection Psych: Mental Status: mental status grossly normal Affect: normal affect Other: Fair to good insight and judgment, denying SI or HI at present. No agitation, flight of ideas, or issues with behavior noted. Objective Data Vital Signs Vital Signs: Vital Signs - 24 hr 01/14/25 08:00 01/14/25 09:45 01/14/25 12:15 Temperature 97.6 F Pulse Rate 79 72 Respiratory Rate 18 Blood Pressure 110/67 119/90 Pulse Oximetry 96 Oxygen Delivery Room Air 01/14/25 14:00 01/14/25 16:20 01/14/25 20:00 Temperature 97.0 F L Pulse Rate 87 83 76 Respiratory Rate 18 12 Blood Pressure 103/67 118/73 Pulse Oximetry 99 95 Oxygen Delivery Room Air 01/14/25 21:34 01/15/25 06:00 Temperature 97.4 F L 97.5 F L Pulse Rate 76 65 Respiratory Rate 12 12 Blood Pressure 107/60 114/68 Pulse Oximetry 95 94 Oxygen Delivery Intake/Output Intake/Output: Intake & Output 01/12/25 01/13/25 01/14/25 01/15/25 23:59 23:59 23:59 23:59 Intake Total 2448 1402 1070 240 Balance 2448 1402 1070 240 Meds/Results Medications: Active Medications Generic Name Dose Route Start Last Admin Trade Name Freq PRN Reason Stop Dose Admin Acetaminophen 650 mg 01/05/25 18:02 01/14/25 21:50 Acetaminophen 325 Mg Tablet PO 650 mg Q4H PRN Administration Mild Pain (1-3) or Fever Aspirin 81 mg 01/06/25 12:40 01/14/25 09:42 Aspirin 81 Mg Enteric Tablet PO 81 mg QAM MINH Administration Atorvastatin Calcium 80 mg 01/07/25 09:00 01/14/25 09:42 Atorvastatin 40 Mg Tablet PO 80 mg DAILY MINH Administration Buprenorphine/Naloxone 2 each 01/07/25 09:00 01/14/25 16:15 Buprenorphine/Naloxone (*Crx) 4 Mg/1 Mg Sl Film SUBLINGUAL 2 each TID MINH Administration Bupropion HCl 150 mg 01/07/25 09:00 01/14/25 09:44 Bupropion Hcl Xl (24 Hr) 150 Mg Tabcr PO 150 mg DAILY MINH Administration Clonidine HCl 0.1 mg 01/07/25 09:00 01/14/25 16:23 Clonidine Hcl 0.1 Mg Tablet PO Not Given TID MINH Clopidogrel Bisulfate 75 mg 01/06/25 12:40 01/14/25 09:42 Clopidogrel Bisulfate 75 Mg Tablet PO 75 mg QAM MINH Administration Cyclobenzaprine HCl 10 mg 01/06/25 14:03 01/14/25 21:50 Cyclobenzaprine Hcl 10 Mg Tablet PO 10 mg Q8H PRN Administration Muscle Spasm Dextrose 12.5 gm 01/05/25 18:37 Dextrose 50% 25 Gm/50 Ml Syringe IV PUSH PRN PRN Hypoglycemia Protocol Diclofenac Sodium 1 applic 01/10/25 17:00 01/14/25 16:23 Diclofenac Sodium 1% 100 Gm Gel (*Bkc) TOPICAL 1 applic BID MINH Administration Enoxaparin Sodium 40 mg 01/08/25 09:00 01/14/25 09:43 Enoxaparin 40 Mg/0.4 Ml Syringe SUB-Q 40 mg DAILY MINH Administration Gabapentin 800 mg 01/07/25 09:00 01/14/25 16:15 Gabapentin 400 Mg Capsule PO 800 mg TID MINH Administration Glucagon 1 mg 01/05/25 18:37 Glucagon For Inj 1 Mg Vial IM PRN PRN Hypoglycemia Protocol Glucose 15 gm 01/05/25 18:37 Glucose Oral Gel 15 Gm Of Glucse In 37.5 Gm Tube PO PRN PRN Hypoglycemia Protocol Dextrose 1,000 mls @ 100 mls/hr 01/05/25 18:37 Dextrose 5% 1,000 Ml IVPB PRN PRN Hypoglycemia Protocol Insulin Aspart 4 - 8 units 01/06/25 08:00 01/14/25 17:10 Insulin Aspart (*Bkc) 100 Units/Ml SUB-Q Not Given TIDWM [facility] Protocol Insulin Glargine 25 units 01/12/25 09:00 01/14/25 09:44 Insulin Glargine (*Bkc) 100 Units/Ml SUB-Q 25 units DAILY MINH Administration Nicotine 1 patch 01/07/25 09:00 01/14/25 09:42 Nicotine (*Pbkc) 7 Mg Patch TRANSDERM 1 patch DAILY MINH Administration Ondansetron HCl 4 mg 01/05/25 18:02 Ondansetron Inj 4 Mg/2 Ml Vial IV PUSH Q4H PRN Nausea Senna/Docusate Sodium 1 tab 01/11/25 21:00 01/14/25 21:52 Senna/Docusate Sodium Tablet PO Not Given HS [facility] Radiology Results: ITS Impressions Hip X-Ray 01/04/25 22:24 IMPRESSION: Radiographic examination of the left hip demonstrates no acute fracture or dislocation. Chest X-Ray 01/05/25 06:27 IMPRESSION: 1. No acute cardiopulmonary findings given portable technique. Head CT 01/05/25 06:33 IMPRESSION: 1. 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 Knee X-Ray 01/06/25 13:12 Impression: No acute fracture or malalignment. Hip/Pelvis X-Ray 01/06/25 13:13 Impression: No acute fracture or malalignment. Labs Labs: Laboratory Results - last 24 hr 01/14/25 01/14/25 01/14/25 07:38 11:44 16:54 POC Capillary Glucose 136 H 207 H 186 H 01/14/25 21:38 POC Capillary Glucose 188 H Quality VTE Prophylaxis VTE prophylaxis: mechanical ordered
[2025-01-15] MEDS: ASPIRIN 81 MG ENTERIC TABLET PO (09:02)
[2025-01-15] MEDS: BUPRENORPHINE/NALOXONE (*CRX) 4 MG/1 MG SL FILM 2 EACH SUBLINGUAL ×3 (09:02→17:03)
[2025-01-15] MEDS: CLOPIDOGREL BISULFATE 75 MG TABLET PO (09:03)
[2025-01-15] MEDS: GABAPENTIN 400 MG CAPSULE 800 MG PO ×3 (09:03→17:03)
[2025-01-15] MEDS: ATORVASTATIN 40 MG TABLET 80 MG PO (09:03)
[2025-01-15] MEDS: buPROPion HCL XL (24 HR) 150 MG TABCR PO (09:03)
[2025-01-15] MEDS: ENOXAPARIN 40 MG/0.4 ML SYRINGE SUB-Q (09:03)
[2025-01-15] MEDS: INSULIN GLARGINE (*BKC) 100 UNITS/ML 25 UNITS SUB-Q (09:04)
[2025-01-15] MEDS: NICOTINE (*PBKC) 7 MG PATCH 1 PATCH TRANSDERM (09:04)
[2025-01-15] MEDS: DICLOFENAC SODIUM 1% 100 GM GEL (*BKC) 1 APPLIC TOPICAL ×2 (09:04→17:07)
--- NOTE | 2025-01-15 10:38 | PC.NURSE ---
[place] Hospitalist notified that patient's PIV access was discontinued last night when she accidentally pulled it out when itching it. Patient not getting any IV meds and awaiting placement for discharge. Elvis ok with patient not having an IV.
--- NOTE | 2025-01-15 12:02 | PC.NURSE ---
Patient refused to have lunchtime blood sugar checked. States that she doesn't want to pay us for that. Patient educated on the importance of regularly checking her blood sugars before meals as the doctor ordered so we can monitor her blood sugar and give her the appropriate amount of insulin as indicated. Patient still refused.
[2025-01-15 14:00] VITALS: BP 120/64; PULSE 68; RESP 18; TEMP 36.9; O2SAT 100
--- NOTE | 2025-01-15 14:09 | PC.NURSE ---
Patient asking about wheelchair and cellphone. States that we lost them and she wants us to find them. This RN checked with charge nurse about these and she said that she reached out to EMS who transported the patient to us, and they never brought either. Patient informed of this update, but does not believe it.
[2025-01-15] MEDS: INSULIN ASPART (*BKC) 100 UNITS/ML SUB-Q (17:04)
[2025-01-15 20:00] VITALS: PULSE 100; RESP 16; O2SAT 98
[2025-01-15] MEDS: ACETAMINOPHEN 325 MG TABLET 650 MG PO (20:40)
[2025-01-15] MEDS: CYCLOBENZAPRINE HCL 10 MG TABLET PO (20:40)
[2025-01-15 21:26] VITALS: BP 121/76; PULSE 100; RESP 16; TEMP 36.7; O2SAT 98
[2025-01-16] MEDS: ACETAMINOPHEN 325 MG TABLET 650 MG PO (02:00)
[2025-01-16 05:25] VITALS: BP 119/61; PULSE 65; RESP 14; TEMP 36.7; O2SAT 99
--- NOTE | 2025-01-16 07:04 | P.PNIM_ITS ---
Progress Note: A&P Assessment and Plan (1) Adult failure to thrive: Code(s): R62.7 - Adult failure to thrive Status: Acute Assessment and Plan: In setting of history of CVA. Patient recently signed out from [employer] as she was unhappy with her care. Initially had endorsed suicidal ideation and was evaluated by the crisis seen, did not meet admission criteria. However patient is unable to care for herself at home and unable to stand without assistance, therefore requires placement. Patient has now adamantly denied suicidal ideation. - PT/OT recommended SNF vs acute rehab. Care coordination following. - still pending placement - Accepted at [facility] (2) History of CVA (cerebrovascular accident): Code(s): Z86.73 - Personal history of transient ischemic attack (TIA), and cerebral infarction without residual deficits Status: Acute Assessment and Plan: - with chronic left-sided weakness, facial droop, left-sided neglect - reports originally diagnosed in [place] and symptoms were attributed to her drug use. Also reports recent hospitalization at [facility]. - continue ASA, Plavix (3) DM type 2 (diabetes mellitus, type 2): Qualifiers: Diabetes mellitus complication status: without complication Diabetes mellitus manager long term care insulin use: with manager long term care use Qualified Code(s): E11.9 - Type 2 diabetes mellitus without complications; Z79.4 - terminal gauger supervisor (current) use of insulin Code(s): E11.9 - Type 2 diabetes mellitus without complications Status: Acute Assessment and Plan: - managed on Lantus 20 u daily at home. - hemoglobin A1c - 7.8 - hypoglycemia protocol - POC blood glucose ACHS - continue Lantus. Uptitrated to 25u daily 01/12. High dose SSI. (4) Hypertension: Code(s): I10 - Essential (primary) hypertension Status: Acute Assessment and Plan: - BP labile. Continue home clonidine with hold parameters. 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 Reports she quickly relapsed. Reports being clean for about 1 month. (6) Tibial plateau fracture: Code(s): S82.143A - Displaced bicondylar fracture of unspecified tibia, initial encounter for closed fracture Status: Chronic Assessment and Plan: - patient reported history of knee fracture diagnosed in [place] - XR L knee with nonacute tibial plateau fracture - discussed with orthopedic surgery Dr. Colin - patient can be WBAT. Follow-up in 7-10 days as outpatient. - PT/OT - continue pain control (7) Depression: Code(s): F32.A - Depression, unspecified Status: Acute Assessment and Plan: - continue home Wellbutrin Plan DVT Prophylaxis: Lovenox Code Status: full code Dispo: SNF vs. [facility] Subjective Date/time seen: 01/16/25 07:04 Interval history: No acute overnight events. Patient seen and examined in bed -denies acute complaints. Still pending placement. Accepted at [facility], their [place] location - will need to follow up on Saturday regarding room assignment. Review of Systems Review of Systems: All systems reviewed & are unremarkable except as noted in HPI and below Exam Narrative: General: NAD, obese Eyes: EOMI ENT: neck supple Cardiovascular: Regular rate and rhythm Respiratory: Clear to auscultation, respirations even and unlabored on RA Gastrointestinal: Soft, non tender Genitourinary: no suprapubic tenderness Musculoskeletal: No edema Skin: warm, dry Neuro: Alert. Left-sided weakness and left-sided facial droop (chronic). Psych: Mood appropriate Const: General: comfortable and no acute distress Other: , female, nontoxic appearance HENMT: Face/Nose/Sinus: Normal nares present Mouth: Yes moist mucous membranes Eyes: General: appearance normal, both eyes and all related structures Sclera: sclerae normal Pupils: Equal, round and reactive pupils present EOM: EOMs intact bilaterally Resp: Effort & Inspection: normal respiratory effort Auscultation: clear to auscultation bilaterally Cardio: Rate: regular rate Rhythm: regular rhythm Other: S1-S2 present without murmur, rub, ectopy GI: Other: Abdomen soft, nondistended, nontender. Normoactive bowel sounds in all quadrants. Skin: General skin exam: normal color and no rashes or lesions noted Wounds: no wounds Neuro: Cranial nerves: Yes Equal, round and reactive pupils present Speech: normal speech Motor exam (neuro): 5/5 motor strength present throughout Sensory Exam: normal sensation Other: A&O x4 Extrem: General: normal to inspection Psych: Mental Status: mental status grossly normal Affect: normal affect Other: Fair to good insight and judgment, denying SI or HI at present. No agitation, flight of ideas, or issues with behavior noted. Objective Data Vital Signs Vital Signs: Vital Signs - 24 hr 01/15/25 08:00 01/15/25 14:00 01/15/25 20:00 Temperature 98.4 F Pulse Rate 68 100 Respiratory Rate 18 16 Blood Pressure 120/64 Pulse Oximetry 100 98 Oxygen Delivery Room Air Room Air 01/15/25 21:26 01/16/25 05:25 Temperature 98.0 F 98.0 F Pulse Rate 100 65 Respiratory Rate 16 14 Blood Pressure 121/76 119/61 Pulse Oximetry 98 99 Oxygen Delivery Intake/Output Intake/Output: Intake & Output 01/13/25 01/14/25 01/15/25 01/16/25 23:59 23:59 23:59 23:59 Intake Total 1402 1070 2700 400 Output Total 200 Balance 1402 1070 2500 400 Meds/Results Medications: Active Medications Generic Name Dose Route Start Last Admin Trade Name Freq PRN Reason Stop Dose Admin Acetaminophen 650 mg 01/05/25 18:02 01/16/25 02:00 Acetaminophen 325 Mg Tablet PO 650 mg Q4H PRN Administration Mild Pain (1-3) or Fever Aspirin 81 mg 01/06/25 12:40 01/15/25 09:02 Aspirin 81 Mg Enteric Tablet PO 81 mg QAM MINH Administration Atorvastatin Calcium 80 mg 01/07/25 09:00 01/15/25 09:03 Atorvastatin 40 Mg Tablet PO 80 mg DAILY MINH Administration Buprenorphine/Naloxone 2 each 01/07/25 09:00 01/15/25 17:03 Buprenorphine/Naloxone (*Crx) 4 Mg/1 Mg Sl Film SUBLINGUAL 2 each TID MINH Administration Bupropion HCl 150 mg 01/07/25 09:00 01/15/25 09:03 Bupropion Hcl Xl (24 Hr) 150 Mg Tabcr PO 150 mg DAILY MINH Administration Clonidine HCl 0.1 mg 01/07/25 09:00 01/15/25 17:03 Clonidine Hcl 0.1 Mg Tablet PO 0.1 mg TID MINH Administration Clopidogrel Bisulfate 75 mg 01/06/25 12:40 01/15/25 09:03 Clopidogrel Bisulfate 75 Mg Tablet PO 75 mg QAM MINH Administration Cyclobenzaprine HCl 10 mg 01/06/25 14:03 01/15/25 20:40 Cyclobenzaprine Hcl 10 Mg Tablet PO 10 mg Q8H PRN Administration Muscle Spasm Dextrose 12.5 gm 01/05/25 18:37 Dextrose 50% 25 Gm/50 Ml Syringe IV PUSH PRN PRN Hypoglycemia Protocol Diclofenac Sodium 1 applic 01/10/25 17:00 01/15/25 17:07 Diclofenac Sodium 1% 100 Gm Gel (*Bkc) TOPICAL 1 applic BID MINH Administration Enoxaparin Sodium 40 mg 01/08/25 09:00 01/15/25 09:03 Enoxaparin 40 Mg/0.4 Ml Syringe SUB-Q 40 mg DAILY MINH Administration Gabapentin 800 mg 01/07/25 09:00 01/15/25 17:03 Gabapentin 400 Mg Capsule PO 800 mg TID MINH Administration Glucagon 1 mg 01/05/25 18:37 Glucagon For Inj 1 Mg Vial IM PRN PRN Hypoglycemia Protocol Glucose 15 gm 01/05/25 18:37 Glucose Oral Gel 15 Gm Of Glucse In 37.5 Gm Tube PO PRN PRN Hypoglycemia Protocol Dextrose 1,000 mls @ 100 mls/hr 01/05/25 18:37 Dextrose 5% 1,000 Ml IVPB PRN PRN Hypoglycemia Protocol Insulin Aspart 4 - 8 units 01/06/25 08:00 01/15/25 17:04 Insulin Aspart (*Bkc) 100 Units/Ml SUB-Q 4 units TIDWM MINH Administration Protocol Insulin Glargine 25 units 01/12/25 09:00 01/15/25 09:04 Insulin Glargine (*Bkc) 100 Units/Ml SUB-Q 25 units DAILY MINH Administration Nicotine 1 patch 01/07/25 09:00 01/15/25 09:04 Nicotine (*Pbkc) 7 Mg Patch TRANSDERM 1 patch DAILY MINH Administration Ondansetron HCl 4 mg 01/05/25 18:02 Ondansetron Inj 4 Mg/2 Ml Vial IV PUSH Q4H PRN Nausea Senna/Docusate Sodium 1 tab 01/11/25 21:00 01/15/25 20:45 Senna/Docusate Sodium Tablet PO Not Given HS MINH Radiology Results: ITS Impressions Hip X-Ray 01/04/25 22:24 IMPRESSION: Radiographic examination of the left hip demonstrates no acute fracture or dislocation. Chest X-Ray 01/05/25 06:27 IMPRESSION: 1. No acute cardiopulmonary findings given portable technique. Head CT 01/05/25 06:33 IMPRESSION: 1. 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 Knee X-Ray 01/06/25 13:12 Impression: No acute fracture or malalignment. Hip/Pelvis X-Ray 01/06/25 13:13 Impression: No acute fracture or malalignment. Labs Labs: Laboratory Results - last 24 hr 01/15/25 01/15/25 01/15/25 08:06 15:33 19:34 POC Capillary Glucose 113 H 230 H 220 H Quality VTE Prophylaxis VTE prophylaxis: mechanical ordered
[2025-01-16] MEDS: INSULIN GLARGINE (*BKC) 100 UNITS/ML 25 UNITS SUB-Q (09:42)
[2025-01-16] MEDS: CLOPIDOGREL BISULFATE 75 MG TABLET PO (09:44)
[2025-01-16] MEDS: ATORVASTATIN 40 MG TABLET 80 MG PO (09:44)
[2025-01-16] MEDS: ENOXAPARIN 40 MG/0.4 ML SYRINGE SUB-Q (09:44)
[2025-01-16] MEDS: ASPIRIN 81 MG ENTERIC TABLET PO (09:44)
[2025-01-16] MEDS: NICOTINE (*PBKC) 7 MG PATCH 1 PATCH TRANSDERM (09:44)
[2025-01-16] MEDS: GABAPENTIN 400 MG CAPSULE 800 MG PO ×3 (09:44→16:46)
[2025-01-16] MEDS: BUPRENORPHINE/NALOXONE (*CRX) 4 MG/1 MG SL FILM 2 EACH SUBLINGUAL ×3 (09:44→16:46)
[2025-01-16] MEDS: buPROPion HCL XL (24 HR) 150 MG TABCR PO (09:44)
[2025-01-16] MEDS: DICLOFENAC SODIUM 1% 100 GM GEL (*BKC) 1 APPLIC TOPICAL ×2 (09:45→16:46)
[2025-01-16 14:00] VITALS: BP 106/61; PULSE 88; RESP 16; TEMP 36.2; O2SAT 98
[2025-01-16] MEDS: INSULIN ASPART (*BKC) 100 UNITS/ML SUB-Q (16:46)
[2025-01-16] MEDS: CYCLOBENZAPRINE HCL 10 MG TABLET PO (21:06)
[2025-01-16 21:09] VITALS: BP 110/74; PULSE 77; RESP 20; TEMP 36.7; O2SAT 98
[2025-01-17] VITALS (7 sets, daily range): BP systolic 106–154; BP diastolic 66–99; PULSE 67–91; RESP 18–20; TEMP 36.6–37; O2SAT 97–100
[2025-01-17 05:31] LABS: Platelet Count Result 213 k/mm3 (150-375)
[2025-01-17 05:42] LABS: Estimated Glomerular Filt Rate > 60
--- NOTE | 2025-01-17 07:07 | P.PNIM_ITS ---
Progress Note: A&P Assessment and Plan (1) Adult failure to thrive: Code(s): R62.7 - Adult failure to thrive Status: Acute Assessment and Plan: In setting of history of CVA. Patient recently signed out from [facility] as she was unhappy with her care. Initially had endorsed suicidal ideation and was evaluated by the crisis seen, did not meet admission criteria. However patient is unable to care for herself at home and unable to stand without assistance, therefore requires placement. Patient has now adamantly denied suicidal ideation. - PT/OT recommended SNF vs acute rehab. Care coordination following. - still pending placement - Accepted at [facility] (2) History of CVA (cerebrovascular accident): Code(s): Z86.73 - Personal history of transient ischemic attack (TIA), and cerebral infarction without residual deficits Status: Acute Assessment and Plan: - with chronic left-sided weakness, facial droop, left-sided neglect - reports originally diagnosed in [place] and symptoms were attributed to her drug use. Also reports recent hospitalization at [facility]. - continue ASA, Plavix (3) DM type 2 (diabetes mellitus, type 2): Qualifiers: Diabetes mellitus complication status: without complication Diabetes mellitus intermediate manager insulin use: with intermediate manager use Qualified Code(s): E11.9 - Type 2 diabetes mellitus without complications; Z79.4 - superintendent terminal (current) use of insulin Code(s): E11.9 - Type 2 diabetes mellitus without complications Status: Acute Assessment and Plan: - managed on Lantus 20 u daily at home. - hemoglobin A1c - 7.8 - hypoglycemia protocol - POC blood glucose ACHS - continue Lantus. Uptitrated to 25u daily 01/12. High dose SSI. (4) Hypertension: Code(s): I10 - Essential (primary) hypertension Status: Acute Assessment and Plan: - BP labile. Continue home clonidine with hold parameters. 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 Reports she quickly relapsed. Reports being clean for about 1 month. (6) Tibial plateau fracture: Code(s): S82.143A - Displaced bicondylar fracture of unspecified tibia, initial encounter for closed fracture Status: Chronic Assessment and Plan: - patient reported history of knee fracture diagnosed in [place] - XR L knee with nonacute tibial plateau fracture - discussed with orthopedic surgery Dr. Colin - patient can be WBAT. Follow-up in 7-10 days as outpatient. - PT/OT - continue pain control (7) Depression: Code(s): F32.A - Depression, unspecified Status: Acute Assessment and Plan: - continue home Wellbutrin Plan DVT Prophylaxis: Lovenox Code Status: full code Dispo: SNF vs. [facility] Subjective Date/time seen: 01/17/25 07:07 Interval history: No acute overnight events. Denies acute complaints. Accepted at [facility] location - will need to follow up on Saturday regarding room assig nment. Review of Systems Review of Systems: All systems reviewed & are unremarkable except as noted in HPI and below Exam Narrative: General: NAD, obese Eyes: EOMI ENT: neck supple Cardiovascular: Regular rate and rhythm Respiratory: Clear to auscultation, respirations even and unlabored on RA Gastrointestinal: Soft, non tender Genitourinary: no suprapubic tenderness Musculoskeletal: No edema Skin: warm, dry Neuro: Alert. Left-sided weakness and left-sided facial droop (chronic). Psych: Mood appropriate Const: General: comfortable and no acute distress Other: , female, nontoxic appearance HENMT: Face/Nose/Sinus: Normal nares present Mouth: Yes moist mucous membranes Eyes: General: appearance normal, both eyes and all related structures Sclera: sclerae normal Pupils: Equal, round and reactive pupils present EOM: EOMs intact bilaterally Resp: Effort & Inspection: normal respiratory effort Auscultation: clear to auscultation bilaterally Cardio: Rate: regular rate Rhythm: regular rhythm Other: S1-S2 present without murmur, rub, ectopy GI: Other: Abdomen soft, nondistended, nontender. Normoactive bowel sounds in all quadrants. Skin: General skin exam: normal color and no rashes or lesions noted Wounds: no wounds Neuro: Cranial nerves: Yes Equal, round and reactive pupils present Speech: normal speech Motor exam (neuro): 5/5 motor strength present throughout Sensory Exam: normal sensation Other: A&O x4 Extrem: General: normal to inspection Psych: Mental Status: mental status grossly normal Affect: normal affect Other: Fair to good insight and judgment, denying SI or HI at present. No agitation, flight of ideas, or issues with behavior noted. Objective Data Vital Signs Vital Signs: Vital Signs - 24 hr 01/16/25 08:00 01/16/25 14:00 01/16/25 21:03 Temperature 97.1 F L Pulse Rate 88 Respiratory Rate 16 Blood Pressure 106/61 Pulse Oximetry 98 Oxygen Delivery Room Air Room Air 01/16/25 21:09 01/17/25 06:00 Temperature 98.0 F 98.6 F Pulse Rate 77 67 Respiratory Rate 20 18 Blood Pressure 110/74 107/66 Pulse Oximetry 98 97 Oxygen Delivery Intake/Output Intake/Output: Intake & Output 01/14/25 01/15/25 01/16/25 01/17/25 23:59 23:59 23:59 23:59 Intake Total 1070 2700 2670 Output Total 200 Balance 1070 2500 2670 Meds/Results Medications: Active Medications Generic Name Dose Route Start Last Admin Trade Name Freq PRN Reason Stop Dose Admin Acetaminophen 650 mg 01/05/25 18:02 01/16/25 02:00 Acetaminophen 325 Mg Tablet PO 650 mg Q4H PRN Administration Mild Pain (1-3) or Fever Aspirin 81 mg 01/06/25 12:40 01/16/25 09:44 Aspirin 81 Mg Enteric Tablet PO 81 mg QAM MINH Administration Atorvastatin Calcium 80 mg 01/07/25 09:00 01/16/25 09:44 Atorvastatin 40 Mg Tablet PO 80 mg DAILY MINH Administration Buprenorphine/Naloxone 2 each 01/07/25 09:00 01/16/25 16:46 Buprenorphine/Naloxone (*Crx) 4 Mg/1 Mg Sl Film SUBLINGUAL 2 each TID MINH Administration Bupropion HCl 150 mg 01/07/25 09:00 01/16/25 09:44 Bupropion Hcl Xl (24 Hr) 150 Mg Tabcr PO 150 mg DAILY MINH Administration Clonidine HCl 0.1 mg 01/07/25 09:00 01/16/25 16:46 Clonidine Hcl 0.1 Mg Tablet PO 0.1 mg TID MINH Administration Clopidogrel Bisulfate 75 mg 01/06/25 12:40 01/16/25 09:44 Clopidogrel Bisulfate 75 Mg Tablet PO 75 mg QAM MINH Administration Cyclobenzaprine HCl 10 mg 01/06/25 14:03 01/16/25 21:06 Cyclobenzaprine Hcl 10 Mg Tablet PO 10 mg Q8H PRN Administration Muscle Spasm Dextrose 12.5 gm 01/05/25 18:37 Dextrose 50% 25 Gm/50 Ml Syringe IV PUSH PRN PRN Hypoglycemia Protocol Diclofenac Sodium 1 applic 01/10/25 17:00 01/16/25 16:46 Diclofenac Sodium 1% 100 Gm Gel (*Bkc) TOPICAL 1 applic BID MINH Administration Enoxaparin Sodium 40 mg 01/08/25 09:00 01/16/25 09:44 Enoxaparin 40 Mg/0.4 Ml Syringe SUB-Q 40 mg DAILY MINH Administration Gabapentin 800 mg 01/07/25 09:00 01/16/25 16:46 Gabapentin 400 Mg Capsule PO 800 mg TID MINH Administration Glucagon 1 mg 01/05/25 18:37 Glucagon For Inj 1 Mg Vial IM PRN PRN Hypoglycemia Protocol Glucose 15 gm 01/05/25 18:37 Glucose Oral Gel 15 Gm Of Glucse In 37.5 Gm Tube PO PRN PRN Hypoglycemia Protocol Dextrose 1,000 mls @ 100 mls/hr 01/05/25 18:37 Dextrose 5% 1,000 Ml IVPB PRN PRN Hypoglycemia Protocol Insulin Aspart 4 - 8 units 01/06/25 08:00 01/16/25 16:46 Insulin Aspart (*Bkc) 100 Units/Ml SUB-Q 4 units TIDWM MINH Administration Protocol Insulin Glargine 25 units 01/12/25 09:00 01/16/25 09:42 Insulin Glargine (*Bkc) 100 Units/Ml SUB-Q 25 units DAILY MINH Administration Miscellaneous Information 0 each 01/16/25 00:01 01/16/25 11:28 Please Renew Buprenorphine/N _. Per [employer] Procedure, It Will Discontinue If Not Renewed XX 02/15/25 00:00 Not Given CLARIFY MINH Nicotine 1 patch 01/07/25 09:00 01/16/25 09:44 Nicotine (*Pbkc) 7 Mg Patch TRANSDERM 1 patch DAILY MINH Administration Ondansetron HCl 4 mg 01/05/25 18:02 Ondansetron Inj 4 Mg/2 Ml Vial IV PUSH Q4H PRN Nausea Senna/Docusate Sodium 1 tab 01/11/25 21:00 01/16/25 21:02 Senna/Docusate Sodium Tablet PO Not Given HS [facility] Radiology Results: ITS Impressions Hip X-Ray 01/04/25 22:24 IMPRESSION: Radiographic examination of the left hip demonstrates no acute fracture or dislocation. Chest X-Ray 01/05/25 06:27 IMPRESSION: 1. No acute cardiopulmonary findings given portable technique. Head CT 01/05/25 06:33 IMPRESSION: 1. 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 Knee X-Ray 01/06/25 13:12 Impression: No acute fracture or malalignment. Hip/Pelvis X-Ray 01/06/25 13:13 Impression: No acute fracture or malalignment. Labs Labs: Laboratory Results - last 24 hr 01/16/25 01/16/25 01/16/25 07:29 11:42 12:18 Plt Count MPV Creatinine Estim Creat Clear Calc Estimated GFR POC Capillary Glucose 123 H 59 L* 132 H 01/16/25 01/16/25 01/17/25 16:38 20:45 05:11 Plt Count 213 MPV 10.8 H Creatinine 0.84 Estim Creat Clear Calc Not Reportable Estimated GFR > 60 POC Capillary Glucose 250 H 205 H Quality VTE Prophylaxis VTE prophylaxis: mechanical ordered
[2025-01-17] MEDS: NICOTINE (*PBKC) 7 MG PATCH 1 PATCH TRANSDERM (09:04)
[2025-01-17] MEDS: ATORVASTATIN 40 MG TABLET 80 MG PO (09:04)
[2025-01-17] MEDS: ASPIRIN 81 MG ENTERIC TABLET PO (09:04)
[2025-01-17] MEDS: buPROPion HCL XL (24 HR) 150 MG TABCR PO (09:04)
[2025-01-17] MEDS: CLOPIDOGREL BISULFATE 75 MG TABLET PO (09:04)
[2025-01-17] MEDS: ENOXAPARIN 40 MG/0.4 ML SYRINGE SUB-Q (09:04)
[2025-01-17] MEDS: GABAPENTIN 400 MG CAPSULE 800 MG PO ×3 (09:04→16:54)
[2025-01-17] MEDS: BUPRENORPHINE/NALOXONE (*CRX) 4 MG/1 MG SL FILM 2 EACH SUBLINGUAL ×3 (09:05→16:54)
[2025-01-17] MEDS: INSULIN GLARGINE (*BKC) 100 UNITS/ML 25 UNITS SUB-Q (09:11)
[2025-01-17] MEDS: DICLOFENAC SODIUM 1% 100 GM GEL (*BKC) 1 APPLIC TOPICAL (09:11)
[2025-01-17] MEDS: INSULIN ASPART (*BKC) 100 UNITS/ML SUB-Q ×2 (11:53→16:59)
[2025-01-17] MEDS: ACETAMINOPHEN 325 MG TABLET 650 MG PO (14:59)
[2025-01-17] MEDS: CYCLOBENZAPRINE HCL 10 MG TABLET PO (20:54)
[2025-01-18 06:00] VITALS: BP 119/69; PULSE 64; RESP 16; TEMP 36.2; O2SAT 94
[2025-01-18] MEDS: NICOTINE (*PBKC) 7 MG PATCH 1 PATCH TRANSDERM (08:55)
[2025-01-18] MEDS: ENOXAPARIN 40 MG/0.4 ML SYRINGE SUB-Q (08:55)
[2025-01-18] MEDS: ASPIRIN 81 MG ENTERIC TABLET PO (08:57)
[2025-01-18] MEDS: buPROPion HCL XL (24 HR) 150 MG TABCR PO (08:57)
[2025-01-18] MEDS: BUPRENORPHINE/NALOXONE (*CRX) 4 MG/1 MG SL FILM 2 EACH SUBLINGUAL (08:57)
[2025-01-18] MEDS: CLOPIDOGREL BISULFATE 75 MG TABLET PO (08:57)
[2025-01-18] MEDS: ATORVASTATIN 40 MG TABLET 80 MG PO (08:57)
[2025-01-18] MEDS: GABAPENTIN 400 MG CAPSULE 800 MG PO (08:57)
[2025-01-18] MEDS: INSULIN GLARGINE (*BKC) 100 UNITS/ML 25 UNITS SUB-Q (09:00)
--- NOTE | 2025-01-18 10:13 | P.DS_ITS ---
DS: Admitting Diagnosis Discharge Date 01/18/2025 Admitting Diagnosis Failure to thrive, tibial plateau fracture DS: Discharge Diagnosis Discharge Diagnosis (1) Adult failure to thrive: Code(s): R62.7 - Adult failure to thrive Status: Acute Assessment and Plan: In setting of history of CVA. Patient recently signed out from [facility] as she was unhappy with her care. Initially had endorsed suicidal ideation and was evaluated by the crisis seen, did not meet admission criteria. However patient is unable to care for herself at home and unable to stand without assistance, therefore requires placement. Patient has now adamantly denied suicidal ideation. - PT/OT recommended SNF vs acute rehab. Care coordination following. - still pending placement - Accepted at [facility] (2) History of CVA (cerebrovascular accident): Code(s): Z86.73 - Personal history of transient ischemic attack (TIA), and cerebral infarction without residual deficits Status: Acute Assessment and Plan: - with chronic left-sided weakness, facial droop, left-sided neglect - reports originally diagnosed in [place] and symptoms were attributed to her drug use. Also reports recent hospitalization at [facility]. - continue ASA, Plavix (3) DM type 2 (diabetes mellitus, type 2): Qualifiers: Diabetes mellitus complication status: without complication Diabetes mellitus predatory animal exterminator insulin use: with predatory animal exterminator use Qualified Code(s): E11.9 - Type 2 diabetes mellitus without complications; Z79.4 - ocean transportation intermediary (current) use of insulin Code(s): E11.9 - Type 2 diabetes mellitus without complications Status: Acute Assessment and Plan: - managed on Lantus 20 u daily at home. - hemoglobin A1c - 7.8 - hypoglycemia protocol - POC blood glucose ACHS - continue Lantus. Uptitrated to 25u daily 01/12. High dose SSI. (4) Hypertension: Code(s): I10 - Essential (primary) hypertension Status: Acute Assessment and Plan: - BP labile. Continue home clonidine with hold parameters. 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 Reports she quickly relapsed. Reports being clean for about 1 month. (6) Tibial plateau fracture: Code(s): S82.143A - Displaced bicondylar fracture of unspecified tibia, initial encounter for closed fracture Status: Chronic Assessment and Plan: - patient reported history of knee fracture diagnosed in [place] - XR L knee with nonacute tibial plateau fracture - discussed with orthopedic surgery Dr. Colin - patient can be WBAT. Follow-up in 7-10 days as outpatient. - PT/OT - continue pain control (7) Depression: Code(s): F32.A - Depression, unspecified Status: Acute Assessment and Plan: - continue home Wellbutrin Plan DVT Prophylaxis: Lovenox Code Status: full code Dispo: SNF vs. [place] [facility] DS: Summary Hospital Course Reason for hospitalization: Left Knee/Hip Pain Hospital Course: Per HPI: 44 y/o F with PMH of DM2, anxiety, and CVA with no significant residual deficits per patient presents here with left knee/hip pain. The patient presents here for further evaluation of left hip pain and left knee pain. HPI obtained through chart review, ED provider report, and patient report. Initially difficult to obtain story from as she told multiple emergency room staff members different stories. However, upon further investigation the mili ent recently signed out of [facility] (yesterday or day before evaluation here) as she was unhappy with her care. During her ED course she was medically cleared. Denied fall. However when it was discussed where the patient will go at discharge, she reported suicidal ideation. She was evaluated by the crisis team and did not meet criteria for admission for. She again or was evaluated for discharge and at that time and was discovered that she had endorsed suicidal ideation when she believes she was going to have to go back to [facility]. Once she realized she did not have to go back, she recanted that she was suicidal. She is requiring placement currently as she is unable to stand unassisted. At this time she denies any complaints and continues to deny SI/HI. Initial VS at presentation: 98.2? F, HR 86, RR 18, 164/70, and 97% on room air. ED workup showed: No leukocytosis, no anemia, no significant electrolyte derangements, glucose 202, creatinine 0.69 and GFR >60, TSH within normal limits, UA showed trace leuk esterase and 6-10 WBC. Left knee XR showed no acute fracture or dislocation. Hip/pelvic XR showed no acute fracture or dislocation. CXR showed no acute cardiopulmonary findings. Head CT showed old infarcts involving the right frontal and parietal lobes, right basal ganglia, anterior limb right internal capsule, and left frontal lobe. Hospital course: Orthopedics was consulted regarding at tibial plateau fracture. Upon review of x-rays, they agree that this finding is stable as it is a minimally displaced tibial plateau fracture, the recommend weight-bearing as tolerated with follow- up 7-10 days upon discharge. PT/OT was ordered and recommended assisted rehab upon discharge. Initially she had endorsed suicidal ideation and was evaluated by crisis but did not meet admission criteria. Patient was found to be unable to take care of herself at home without assistance and therefore required placement. Patient now denies any suicidal ideation. We continued to work with care coordination throughout hospitalization for placement to a facility. She was eventually accepted with [facility]. She remained hemodynamically stable throughout hospitalization and upon acceptance to this facility, discharge orders were subsequently placed and we will plan for discharge at this time. Patient is amenable to this plan. Status at Discharge Functional status at discharge: uses cane/walker Overall status at discharge: patient is progressing back to baseline Time Spent with Patient Time attestation: Total time spent providing and/or coordinating discharge services: 34 Exam Narrative: General: NAD, obese Eyes: EOMI ENT: neck supple Cardiovascular: Regular rate and rhythm Respiratory: Clear to auscultation, respirations even and unlabored on RA Gastrointestinal: Soft, non tender Genitourinary: no suprapubic tenderness Musculoskeletal: No edema Skin: warm, dry Neuro: Alert. Left-sided weakness and left-sided facial droop (chronic). Psych: Mood appropriate Const: General: comfortable and no acute distress Other: , female, nontoxic appearance HENMT: Face/Nose/Sinus: Normal nares present Mouth: Yes moist mucous membranes Eyes: General: appearance normal, both eyes and all related structures Sclera: sclerae normal Pupils: Equal, round and reactive pupils present EOM: EOMs intact bilaterally Resp: Effort & Inspection: normal respiratory effort Auscultation: clear to auscultation bilaterally Cardio: Rate: regular rate Rhythm: regular rhythm Other: S1-S2 present without murmur, rub, ectopy GI: Other: Abdomen soft, nondistended, nontender. Normoactive bowel sounds in all quadrants. Skin: General skin exam: normal color and no rashes or lesions noted Wounds: no wounds Neuro: Cranial nerves: Yes Equal, round and reactive pupils present Speech: normal speech Motor exam (neuro): 5/5 motor strength present throughout Sensory Exam: normal sensation Other: A&O x4 Extrem: General: normal to inspection Psych: Mental Status: mental status grossly normal Affect: normal affect Other: Fair to good insight and judgment, denying SI or HI at present. No agitation, flight of ideas, or issues with behavior noted. DS: Data Data Completed and Pending Labs on day of discharge: Labs from last 24 hours 01/18/25 01/17/25 01/17/25 07:28 21:07 16:35 POC Capillary Glucose 136 H 197 H 229 H 01/17/25 11:36 POC Capillary Glucose 256 H Discharge Plan Discharge Attending physician on discharge: Eliezer Rodriguez Consulting providers: Santi Painter; Ellie Stephens; Leonardo Colin; Elvis Deshpande Discharging Clinician: Elvis Deshpande Anticipated Discharge Date/Time: 01/18/25 10:08 Patient Disposition: SNF Activity: as tolerated and follow weight bearing status Diet: regular Discharge Instructions: Discharge disposition: [facility] in [place] Take medications as prescribed Monitor blood pressures Take caution while standing, rising, or moving Change positions slowly taking a break between each position change If you standing feel dizzy sit back down and take a break Encouraged to continue with yearly vaccinations Return to the emergency department if you develop sudden shortness of breath, chest pain, nausea, vomiting, upset stomach or intractable diarrhea Return to the emergency department if you develop fever greater than 101.5 Follow-up with the primary care physician within 1-2 weeks Follow up with Dr. Colin of Orthopedics in 7-10 days after discharge - call his office to schedule an appointment. Weight Bearing Status - As tolerated Thank you for choosing [facility] for your healthcare needs Patient Instructions: How to Stop Smoking (ED) Patient Language: Macedonian Stand Alone Forms: General Discharge Information Follow-up/Referrals: PHYSICIAN,DAY HAUL YOUTH SUPERVISOR [Primary Care Provider, Internal Medicine] Leonardo Colin MD [Physician, Orthopedics] Discharge Medications: Continued Humulin R Regular U-100 Insuln 100 unit/mL solution 1 sliding scale dose subcut USEASDIRECTD Qty: 10 0RF buprenorphine-naloxone 8-2 mg film 1 film sublingual TID bupropion HCl 150 mg tablet extended release 24 hr 150 mg PO DAILY clonidine HCl 0.1 mg tablet 0.1 mg PO TID cyclobenzaprine 10 mg tablet 10 mg PO BID gabapentin 800 mg tablet 800 mg PO TID lorazepam 0.5 mg tablet 0.5 mg PO DAILY atorvastatin 80 mg tablet 80 mg PO DAILY insulin glargine [Lantus Solostar U-100 Insulin] 100 unit/mL (3 mL) insulin pen 100 unit SUBCUT QPM aspirin [Adult Aspirin Regimen] 81 mg tablet,delayed release (DR/EC) 81 mg PO DAILY Discontinued clopidogrel 75 mg tablet 75 mg PO DAILY No Action (DME) insulin syringes (disposable) 1 mL syringe See Rx Instructions .Route Qty: 500 0RF Rx Instructions: As directed Date of admission: 01/09/25 08:10 Primary Care Provider: PHYSICIAN,DAY HAUL YOUTH SUPERVISOR Admitting Provider: Eliezer Rodriguez Attending physician on admission: Eliezer Rodriguez Condition: Stable Quality VTE Prophylaxis VTE prophylaxis: mechanical ordered
--- NOTE | 2025-01-18 11:10 | PCNWS ---
Weekly nutritional screen. Patient is tolerating current Diabetic diet with adequate intake 50-100%. No weight loss reported. No nutritional recommendations at this time.
[2025-01-18] MEDS: INSULIN ASPART (*BKC) 100 UNITS/ML SUB-Q (12:05)
== END 2025-01-18 12:50 | DRG 342 ==
LOC: ANHED 01-05 18:02 → ANH3MEDSUR 01-05 19:02
PROVIDERS: Emergency Medicine; Physician Assistant; Admitting Provider Family Medicine; Emergency Provider Student in an Organized Health Care Education/Training Program; Visit Provider Physician Assistant
DX: S82.142A Displaced bicondylar fracture of left tibia, initial encounter for closed fracture (principal); X58.XXXA Exposure to other specified factors, initial encounter; R62.7 Adult failure to thrive; I69.354 Hemiplegia and hemiparesis following cerebral infarction affecting left non-dominant side; I69.392 Facial weakness following cerebral infarction; E11.9 Type 2 diabetes mellitus without complications; F32.A Depression, unspecified; F41.9 Anxiety disorder, unspecified; F17.210 Nicotine dependence, cigarettes, uncomplicated; I10 Essential (primary) hypertension; Z79.82 Long term (current) use of aspirin; Z20.822 Contact with and (suspected) exposure to COVID-19; Z79.4 Long term (current) use of insulin
CPT/HCPCS: 36415; 70450; 71045; 73502; 73562; 80048; 80053; 80307; 81001; 81025; 82077; 82565; 82948; 83036; 84443; 85025; 85049; 87086; 87637; 96372; 97110; 97162; 97165; 97530; 97535; 99285; A9270; G0378; J1650; J1815; J1885